=== PATIENT | female | born 1935 | race Hispanic/Latino ===

== ENCOUNTER 2022-07-16 11:03 | Emergency (ER) | payer OTHER, MEDICARE ==
--- OUTSIDE RECORDS SUMMARY | 2022-07-16 11:07 | XMS REPORT | Continuity of Care Document ---
:1935 Author Organization [facility] t Address [address] [place] [address] Care Team Providers Name Role Phone ENOCH ENID REDD Primary Care Physician Unavailable Edelmira VIRAMONTES, Jonatan Catalan Attending Clinician Unavailable OMAR OBREGON Attending Clinician Unavailable Anirudh Brunson DO Attending Clinician Keith Lao DO Attending Clinician Omar Obregon MD Attending Clinician Babak FORRESTER, Monica PenalozaHYasmani Attending Clinician ADI MCCLOUD Attending Clinician Unavailable Adi Mccloud MD Attending Clinician Anastacia Etienne MD Attending Clinician KEITH LAO Admitting Clinician Unavailable Keith Lao DO Admitting Clinician ANASTACIA ETIENNE Admitting Clinician Unavailable Anastacia Etienne MD Admitting Clinician Payers Payer Name Policy Type Policy Number Effective Date Expiration Date S ource Problems Condition Condition Condition Status Onset Resolution Last Treating Co mments Source Name Details Category Date Date Treatment Clinician Date 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 00:00: [place] and and 00 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 KATIE (acute KATIE (acute Disease Active U nivers kidney kidney 2-08 ity of injury) injury) 00:00: [place] 00 Medical Branch Altered Altered Disease Active Univers mental mental 2-06 ity of status, status, 00:00: [place] unspecifie unspecifie 00 Me dical d altered d altered Bran ch mental mental status status type type Acute on Acute on Disease Active 2021-05 Unive rs chronic chronic 1-24 ity of systolic systolic 00:00: [place] and and 00 Medical diastolic diastolic Bran ch heart heart failure, failure, NYHA class NYHA class 3 3 Pulmonary Pulmonary Disease Active 2021-05 Uni vers hypertensi hypertensi 1-24 it y of on on 00:00: [place] 00 Medical Branch Elevated Elevated Disease Active 2021-05 Unive rs brain brain 1-23 ity of natriureti natriureti 00:00[place] c peptide c peptide 00 Medi inocencio (BNP) (BNP) Branch level level Essential Essential Disease Active 2021-05 Uni vers hypertensi hypertensi 1-23 it y of on on 00:00: [place] 00 Medical Branch Borderline Borderline Disease Active 2021-05 U mary abnormal abnormal 1-23 ity of TFTs TFTs 00:00: [place] 00 Medical Branch Atrial Atrial Disease Active 2021-05 Univers fibrillati fibrillati 1-22 it y of on with on with 00:00: [place] RVR RVR 00 Medical Branch Post-op Post-op Disease Active 2015-05 Univers pain pain 2-21 ity of 00:00: [place] 00 Medical Branch Left knee Left knee Disease Active Uni vers pain pain 2-15 ity of 00:00: [place] 00 Medical Branch Allergies, Adverse Reactions, Alerts Allergy Allergy Status Severity Reaction(s) Onset Inactive Treating Comm ents Source Name Type Date Date Clinician Strawber Propensi Active Shortness of Univers ry ty to Breath 7-09 ity of adverse 00:00: [place] reaction 00 Medical s Branch STRAWBER DRUG Active SOB 2016-0 Univers RY INGREDI 11-30 ity of 00:00: [place] 00 Medical Branch Social History Social Habit Start Date Stop Date Quantity Comments Source History SDOH Social Unive rsity of Connections Get [place] Med ical Together Branch History SDOH Social Unive rsity of Connections [facility] [place] [facility] History SDOH Social Unive rsity of Connections [place] [facility] Membership Branch History SDOH Social Unive rsity of Connections [place] [facility] Meetings Branch History of tobacco Passive smoker Un iversity of use [place] [facility] History SDOH 2022-07-02 2022-07-02 1 University o f Alcohol Frequency 00:00:00 00:00:00 [place] M edical Branch History SDOH 2022-07-02 2022-07-02 0 University o f Alcohol Std Drinks 00:00:00 00:00:00 [place] [facility] History SDOH 2022-07-02 2022-07-02 1 University o f Alcohol Binge 00:00:00 00:00:00 [place] Medic al Branch History SDOH Social 2022-07-02 2022-07-02 5 Unive rsity of Connections Phone 00:00:00 00:00:00 [place] M edical Branch History SDOH Social 2022-07-02 2022-07-02 4 Unive rsity of Connections Living 00:00:00 00:00:00 [place] [facility] History SDOH 2022-07-02 2022-07-02 0 University o f Physical Activity 00:00:00 00:00:00 [place] M edical DPW Branch History SDOH 2022-07-02 2022-07-02 0 University o f Physical Activity 00:00:00 00:00:00 [place] M edical MPS Branch History SDOH 2022-07-02 2022-07-02 5 University o f Financial 00:00:00 00:00:00 [place] [facility] History SDOH Food 2022-07-02 2022-07-02 1 Univers ity of Worry 00:00:00 00:00:00 [place] [facility] History SDOH Food 2022-07-02 2022-07-02 1 Univers ity of Scarcity 00:00:00 00:00:00 [place] [facility] History SDOH 2022-07-02 2022-07-02 2 University o f Transport Med 00:00:00 00:00:00 [place] Medic al Branch History SDOH 2022-07-02 2022-07-02 2 University o f Transport Non-Med 00:00:00 00:00:00 [place] M edical Branch Exposure to 2022-06-20 2022-06-30 Not sure [facility] SARS-CoV-2 (event) 00:00:00 15:34:00 [facility] Alcohol intake 2022-06-30 2022-06-30 0 /d [facility] 00:00:00 00:00:00 [facility] Tobacco use and 2022-04-15 2022-04-15 Smokeless Universit y of exposure 00:00:00 00:00:00 tobacco non-user [facility] Sex Assigned At [birth year] Universit y of 00:00:00 00:00:00 [facility] Smoking Status Start Date Stop Date Source Never smoked tobacco [facility] Medications Ordered Filled Start Stop Current Ordering Indication Dosage Frequency Signature Comments Components Source Medication Medication Date Date Medication? Clinician (SIG) Name Name haloperidoL Yes 2mg 2 mg, Unive rs (HALDOL) 2-10 Oral, BID, ity o f tablet 2 mg 15:00: First dose [place] 00 on Thu07/04/22 at [place] 0900, Until Discontinu ed, Routine B12/FA/D3/C Yes Take by Uni vers ALC CIT/ZN 2-10 mouth. ity of AA CHELT 14:17: [place] (VIT 11 Medical [id number] Branch D3-CALC CIT-ZN ORAL) magnesium Yes 400mg Take 400 Uni vers oxide 2-10 mg by ity of (MAG-OX 14:17: mouth [place] 400) 400 mg 11 daily. Medica l tablet Branch GLUCOSAMINE Yes 1{tbl} Take 1 Un andry HCL/CHONDR 2-10 tablet by ity of NORIEGA A NA 14:17: mouth 3 [place] (OSTEO 11 (three) Medical BI-FLEX times Branch ORAL) daily. pantoprazol Yes 40mg Take 40 mg Univers e 2-10 by mouth ity of (PROTONIX) 14:17: daily. [place] 40 mg EC 11 Medical tablet Branch B12/FA/D3/C Yes Take by Uni vers ALC CIT/ZN 2-10 mouth. ity of AA CHELT 14:17: [place] (VIT 11 Medical [id number] Branch D3-CALC CIT-ZN ORAL) magnesium Yes 400mg Take 400 Uni vers oxide 2-10 mg by ity of (MAG-OX 14:17: mouth [place] 400) 400 mg 11 daily. Medica l tablet Branch GLUCOSAMINE Yes 1{tbl} Take 1 Un andry HCL/CHONDR 2-10 tablet by ity of NORIEGA A NA 14:17: mouth 3 [place] (OSTEO 11 (three) Medical BI-FLEX times Branch ORAL) daily. pantoprazol Yes 40mg Take 40 mg Univers e 2-10 by mouth ity of (PROTONIX) 14:17: daily. [place] 40 mg EC 11 Medical tablet Branch metoprolol Yes 100mg 100 mg, Uni vers tartrate 2-10 Oral, BID, ity o f (LOPRESSOR) 14:00: First dose [place] tablet 100 00 (after Medical mg last Branch modificati on) on Thu07/04/22 at 0800, Until Discontinu ed, Routine haloperidol Yes 2.5mg 2.5 mg, Un andry lactate 2-10 Intramuscu ity of (HALDOL) 13:47: lar, PRN, [place] injection 55 2 doses, Medica l 2.5 mg Starting Branch on Thu07/04/22 at 0747, Until Discontinu ed, Routine, Psychosis LORazepam 2022- No .5mg 0.5 mg, Univ ers (ATIVAN) 2-10 02-10 Oral, ity of tablet 0.5 04:45: 03:55 ONCE, 1 [place] mg 00 :00 dose, On Medical [facility] 07/03/22 Branch at 2245, Routine metoprolol 2022- Yes [id number] 100mg Take 1 Univers tartrate 2-10 -13 tablet by ity o f 100 mg 00:00: 04:59 mouth in [place] tablet 00 :00 the Medical morning Branch and 1 tablet in the evening. Do all this for 30 days. metoprolol 2022- Yes [id number] 100mg Take 1 Univers tartrate 2-10 -13 tablet by ity o f 100 mg 00:00: 04:59 mouth in [place] tablet 00 :00 the Medical morning Branch and 1 tablet in the evening. Do all this for 30 days. metoprolol 2022- No 50mg 50 mg, Univ ers tartrate 07-03 Oral, Q8H, ity of (LOPRESSOR) 20:00: 13:31 First dose [place] tablet 50 00 :42 (after Medical mg last Branch modificati on) on [facility] 07/03/22 at 1400, Until Discontinu ed, Routine metoprolol 2022- No 25mg 25 mg, Univ ers tartrate 07-02 Oral, Q8H, ity of (LOPRESSOR) 13:45: 13:38 First dose [place] tablet 25 00 :06 on [facility] Medical mg 07/02/22 at Branch 0745, Until Discontinu ed, Routine docusate Yes 100mg 100 mg, Unive rs (COLACE) 2- Oral, ity of capsule 100 15:00: DAILY, [place] mg 00 First dose Medical on [place] 07/01/22 at 0900, Until Discontinu ed, Routine magnesium Yes 400mg 400 mg, Univ ers oxide 07-01 Oral, ity of (MAG-OX 15:00: DAILY, [place] 400) tablet 00 First dose Me dical 400 mg on [facility] 07/01/22 at 0900, Until Discontinu ed, Routine KCL Yes 40meq 40 mEq, Univers (KLOR-CON - Oral, ity of M20) tablet 15:00: DAILY, [place] 40 mEq 00 First dose Medical on [facility] 07/01/22 at 0900, Until Discontinu ed, Routine NaCl 0.9% 2022- No 500mL at 999 Univ ers (NS) bolus 07-01- mL/hr, 500 it y of infusion 14:30: 13:45 mL, IV [place] 500 mL 00 :07 Infusion, Medical ONCE, 1 Branch dose, On [facility] 07/01/22 at 0830, STAT magnesium 2022-2022- No 2g 2 g, IV Univ ers sulfate in 07-01- Piggyback, it y of water 2 14:15: 18:34 Administer [place] gram/50 mL 00 :00 over 60 Medica l (4 %) Minutes, Branch infusion 2 ONCE, 1 g dose, On Thu07/01/22 at 0815, Routine potassium 2022-0 2022- No 10meq 10 mEq, IV Univers chloride in 07-01 Piggyback, i ty of water 10 14:00: 16:25 Q1H, 2 [place] mEq/100 mL 00 :00 doses, Medical RTU 10 mEq First dose Bra nch on Thu07/01/22 at 0800, Last dose on Thu07/01/22 at 0900, Administer over 60 Minutes, 100 mL heparin Yes 5000U 5,000 Univers (porcine) 07 Units, ity of injection 04:00: Subcut[place]o [place] 5,000 Units 00 us, Q8H, Medi inocencio First dose Branch on Thu06/30/22 at 2200, Until Discontinu ed, Routine ondansetron 0 Yes 4mg 4 mg, Slow Univers (ZOFRAN 06-30 IV Push, ity of (PF)) 23:38: Q6HPRN, [place] injection 4 17 Starting Medi inocencio mg on Thu06/30/22 at 1738, Until Discontinu ed, Routine, Nausea and Vomiting (N/V) acetaminoph Yes 650mg 650 mg, Un andry en 06 Oral, ity of (TYLENOL) 23:38: Q6HPRN, [place] tablet 650 17 Starting Medic al mg on Thu06/30/22 at 1738, Until Discontinu ed, Routine, Pain (scale 1-3) NaCl 0.9% 2022- No 1000mL at 999 Uni vers (NS) bolus 06-30 02-06 mL/hr, ity of infusion 22:45: 21:39 1,000 mL, [place] 1,000 mL 00 :00 IV Medical Piggyback, Branch ONCE, 1 dose, On Thu06/30/22 at 1645, STAT ondansetron 2022-0 2022- No 4mg 4 mg, Slow Univers (ZOFRAN 06-30 02-06 IV Push, ity of (PF)) 20:00: 20:43 ONCE, 1 [place] injection 4 00 :00 dose, On Medi inocencio mg 06/30/22 Branch at 1400, Routine magnesium 2021-05- Yes 400mg 400 mg, Uni vers oxide 1-26 12-03 Oral, BID, ity of (MAG-OX 02:00: 01:59 14 doses, [place] 400) tablet 00 :00 First dose Me dical 400 mg on Fri Branch 04/18/22 at 2000, Last dose on 04/25/22 at 0800, Routine B12/FA/D3/C 2021-05 Yes Take by Uni vers ALC CIT/ZN 1-25 mouth. ity of AA CHELT 16:34: [place] (VIT 07 Medical [id number] Branch D3-CALC CIT-ZN ORAL) magnesium 2021-05 Yes 400mg Take 400 Uni vers oxide 1-25 mg by ity of (MAG-OX 16:34: mouth [place] 400) 400 mg 07 daily. Medica l tablet Branch GLUCOSAMINE 2021-05 Yes 1{tbl} Take 1 Un andry HCL/CHONDR 1-25 tablet by ity of NORIEGA A NA 16:34: mouth 3 [place] (OSTEO 07 (three) Medical BI-FLEX times Branch ORAL) daily. pantoprazol 2021-05 Yes 40mg Take 40 mg Univers e 1-25 by mouth ity of (PROTONIX) 16:34: daily. [place] 40 mg EC 07 Medical tablet Branch B12/FA/D3/C 2021-05 Yes Take by Uni vers ALC CIT/ZN 1-25 mouth. ity of AA CHELT 16:34: [place] (VIT 07 Medical [id number] Branch D3-CALC CIT-ZN ORAL) magnesium 2021-05 Yes 400mg Take 400 Uni vers oxide 1-25 mg by ity of (MAG-OX 16:34: mouth [place] 400) 400 mg 07 daily. Medica l tablet Branch GLUCOSAMINE 2021-05 Yes 1{tbl} Take 1 Un andry HCL/CHONDR 1-25 tablet by ity of NORIEGA A NA 16:34: mouth 3 [place] (OSTEO 07 (three) Medical BI-FLEX times Branch ORAL) daily. pantoprazol 2021-05 Yes 40mg Take 40 mg Univers e 1-25 by mouth ity of (PROTONIX) 16:34: daily. [place] 40 mg EC 07 Medical tablet Branch B12/FA/D3/C 2021-05 Yes Take by Uni vers ALC CIT/ZN 1-25 mouth. ity of AA CHELT 16:34: [place] (VIT 07 Medical [id number] Branch D3-CALC CIT-ZN ORAL) magnesium 2021-05 Yes 400mg Take 400 Uni vers oxide 1-25 mg by ity of (MAG-OX 16:34: mouth [place] 400) 400 mg 07 daily. Medica l tablet Branch GLUCOSAMINE 2021-05 Yes 1{tbl} Take 1 Un andry HCL/CHONDR -25 tablet by ity of NORIEGA A NA 16:34: mouth 3 [place] (OSTEO 07 (three) Medical BI-FLEX times Branch ORAL) daily. pantoprazol 2021-05 Yes 40mg Take 40 mg Univers e 06-18 by mouth ity of (PROTONIX) 16:34: daily. [place] 40 mg EC 07 Medical tablet Branch KCL 2021-05- No 40meq 40 mEq, Univers (KLOR-CON 06-18 Oral, ity of M20) tablet 15:15: 17:39 ONCE, 1 [place] 40 mEq 00 :00 dose, On Medical Fri Branch 04/18/22 at 0915, Routine MAGNESIUM 2021-05- No Take by Univ ers OXIDE/MAG 06-18- mouth. ity of AA CHELATE 15:10: 00:00 [place] (MAGNESIUM, 22 :00 Medical OXIDE/AA Branch CHELATE, ORAL) tiZANidine 2021-05- No 2mg Take 2 mg U nivers (ZANAFLEX) 06-18 by mouth 3 it y of 2 mg 15:10: 00:00 (three) [place] capsule 22 :00 times Medical daily. Branch calcium 2021-05- No 500mg 500 mg, Unive rs carbonate 06-18 Oral, ity of (OSCAL-500) 05:00: 05:53 ONCE, 1 [place] tablet 500 00 :00 dose, On Medic al mg [place] Branch 04/17/22 at 2300, Routine acetaminoph 2021-05 Yes [id number] 1000mg Take 2 Univers en 500 mg 06-18 9109 tablets by ity of tablet 00:00: mouth [place] 00 every 6 Medical (six) Branch hours as needed for Pain. acetaminoph 2021-05 Yes [id number] 1000mg Take 2 Univers en 500 mg -25 9109 tablets by ity of tablet 00:00: mouth [place] 00 every 6 Medical (six) Branch hours as needed for Pain. acetaminoph 2021-05 Yes [id number] 1000mg Take 2 Univers en 500 mg -25 9109 tablets by ity of tablet 00:00: mouth [place] 00 every 6 Medical (six) Branch hours as needed for Pain. acetaminoph 2021-05 Yes [id number] 1000mg Take 2 Univers en 500 mg -25 9109 tablets by ity of tablet 00:00: mouth [place] 00 every 6 Medical (six) Branch hours as needed for Pain. acetaminoph 2021-05 Yes [id number] 1000mg Take 2 Univers en 500 mg - 9109 tablets by ity of tablet 00:00: mouth [place] 00 every 6 Medical (six) Branch hours as needed for Pain. apixaban 2021-05- Yes 5144 2.5mg Take 0.5 Uni vers (ELIQUIS) 5 06-18 tablets by i ty of mg tablet 00:00: 05:59 mouth in [place] 00 :00 the Medical morning Branch and 0.5 tablets in the evening. Do all this for 30 days. Indication s: prevention of thromboemb olism in paroxysmal atrial fibrillati on lisinopriL 2021-05- Yes [id number] 2.5mg Take 1 Univers 2.5 mg 06-18 9109 tablet by ity of tablet 00:00: 05:59 mouth in [place] 00 :00 the Medical morning Branch for 30 days. metoprolol 2021-05- Yes [id number] 50mg Take 1 Univers tartrate 50 06-18 9109 tablet by it y of mg tablet 00:00: 05:59 mouth in [place] 00 :00 the Medical morning Branch and 1 tablet in the evening. Do all this for 30 days. furosemide 2021-05- Yes [id number] 20mg Take 1 Univers 20 mg 06-18 9109 tablet by ity of tablet 00:00: 05:59 mouth in [place] 00 :00 the Medical morning Branch for 30 days. apixaban 2021-05- Yes 5144 2.5mg Take 0.5 Uni vers (ELIQUIS) 5 06-18 tablets by i ty of mg tablet 00:00: 05:59 mouth in [place] 00 :00 the Medical morning Branch and 0.5 tablets in the evening. Do all this for 30 days. Indication s: prevention of thromboemb olism in paroxysmal atrial fibrillati on lisinopriL 2021-05- Yes [id number] 2.5mg Take 1 Univers 2.5 mg 06-18 9109 tablet by ity of tablet 00:00: 05:59 mouth in [place] 00 :00 the [facility] morning Branch for 30 days. metoprolol 2021-05- Yes [id number] 50mg Take 1 Univers tartrate 50 06-18 9109 tablet by it y of mg tablet 00:00: 05:59 mouth in [place] 00 :00 the Medical morning Branch and 1 tablet in the evening. Do all this for 30 days. furosemide 2021-05- Yes [id number] 20mg Take 1 Univers 20 mg 06-18 9109 tablet by ity of tablet 00:00: 05:59 mouth in [place] 00 :00 the [facility] morning Branch for 30 days. apixaban 2021-05- Yes 5144 2.5mg Take 0.5 Uni vers (ELIQUIS) 5 06-18 tablets by i ty of mg tablet 00:00: 05:59 mouth in [place] 00 :00 the [facility] morning Branch and 0.5 tablets in the evening. Do all this for 30 days. Indication s: prevention of thromboemb olism in paroxysmal atrial fibrillati on lisinopriL 2021-05- Yes [id number] 2.5mg Take 1 Univers 2.5 mg 06-18 9109 tablet by ity of tablet 00:00: 05:59 mouth in [place] 00 :00 the [facility] morning Branch for 30 days. metoprolol 2021-05- Yes [id number] 50mg Take 1 Univers tartrate 50 06-18 9109 tablet by it y of mg tablet 00:00: 05:59 mouth in [place] 00 :00 the Medical morning Branch and 1 tablet in the evening. Do all this for 30 days. furosemide 2021-05- Yes [id number] 20mg Take 1 Univers 20 mg 06-18 9109 tablet by ity of tablet 00:00: 05:59 mouth in [place] 00 :00 the Medical morning Branch for 30 days. furosemide 2021-05 Yes 20mg 20 mg, Unive rs (LASIX) 06-17 Slow IV ity of injection 02:00: Push, [place] 20 mg 00 Q12H, Medical First dose Branch (after last modificati on) on Thu04/16/22 at 2000, Until Discontinu ed, Routine traMADoL 2021-05 Yes 50mg 50 mg, Univers (ULTRAM) 06-16 Oral, ity of tablet 50 23:41: Q6HPRN, [place] mg 37 Starting Medical on Thu Branch 04/16/22 at 1741, Until Discontinu ed, Routine, Pain (scale 4-6) acetaminoph 2021-05 Yes 1000mg 1,000 mg, Univers en 06-16 Oral, ity of (TYLENOL) 23:41: Q6HPRN, [place] tablet 24 Starting Medical 1,000 mg on Thu04/16/22 at 1741, Until Discontinu ed, Routine, Pain (scale 1-3) pantoprazol 2021-05 Yes 40mg 40 mg, Univ ers e 06-16 Oral, ity of (PROTONIX) 15:00: DAILY, [place] EC tablet 00 First dose Medi inocencio 40 mg on Thu04/16/22 at 0900, Until Discontinu ed, Routine docusate 2021-05 Yes 100mg 100 mg, Unive rs (COLACE) 06-16 Oral, ity of capsule 100 15:00: DAILY, [place] mg 00 First dose Medical on Thu04/16/22 at 0900, Until Discontinu ed, Routine furosemide 2021-05 No 20mg 20 mg, Univ ers (LASIX) 06-16 Slow IV ity of injection 15:00: 16:43 Push, [place] 20 mg 00 :38 DAILY, Medical First dose Branch on Thu04/16/22 at 0900, Until Discontinu ed, Routine KCL 2021-05 No 40meq 40 mEq, Univers (KLOR-CON 06-16 Oral, ity of M20) tablet 14:15: 14:12 ONCE, 1 [place] 40 mEq 00 :00 dose, On Medical Thu04/16/22 at 0815, Routine enoxaparin 2021-05 Yes 1mg/kg 50 mg Univ ers (LOVENOX) 23 (rounded ity of injection 14:00: from 46.5 [place] 50 mg 00 mg = 1 Medical mg/kg Branch ?46.5 kg), [facility] Q12[facility], First dose on Thu04/16/22 at 0800, Until Discontinu ed, Routine thyroid 2021-05 Yes 90mg 90 mg, Univers (ARMOUR 06-16 Oral, ity of THYROID) 12:00: QAM-0600, [place] tablet 90 00 First dose Medi inocencio mg on Thu04/16/22 at 0600, Until Discontinu ed metoprolol 2021-05 Yes 50mg 50 mg, Unive rs tartrate 06-16 Oral, BID, ity o f (LOPRESSOR) 03:30: First dose [place] tablet 50 00 on Thu Medical mg 04/15/22 Branch at 2130, Until Discontinu ed, Routine gabapentin 2021-05 Yes 100mg 100 mg, Uni vers (NEURONTIN) 06-16 Oral, TID, it y of capsule 100 03:30: First dose [place] mg 00 on Thu Medical 04/15/22 Branch at 2130, Until Discontinu ed, Routine diltiazem 2021-05 Yes 10mg 10 mg, Univer s (CARDIZEM 06-16 Slow IV ity of IV) 03:17: Push, [place] injection 03 Q6HPRN, Medical 10 mg Starting Branch on Thu04/15/22 at 2117, Until Discontinu ed, Routine, For HR > 120 or SBP > 160. Hold for SBP < 110, DBP < 60, HR < 60
Facu lty member approving Restricted medication : ANASTACIA ETIENNE cyclobenzap 2021-05 Yes 5mg 5 mg, Unive rs rine 23 Oral, ity of (FLEXERIL) 03:16: TIDPRN, [place] tablet 5 mg 13 Starting Medi inocencio on Thu Branch 04/15/22 at 2116, Until Discontinu ed, Routine, Muscle Spasms cyclobenzap 2015- Yes 5mg Take 1 Univ ers rine 7-09 tablet by ity of (FLEXERIL) 00:00: mouth 3 [place] 5 mg tablet 00 (three) Medic al times Branch daily. docusate Yes 100mg Take 1 Univer s (COLACE) 7-09 capsule by ity o f 100 mg 00:00: mouth [place] capsule 00 daily. Medical Branch cyclobenzap Yes 5mg Take 1 Univ ers rine 7-09 tablet by ity of (FLEXERIL) 00:00: mouth 3 [place] 5 mg tablet 00 (three) Medic al times Branch daily. docusate Yes 100mg Take 1 Univer s (COLACE) 7-09 capsule by ity o f 100 mg 00:00: mouth [place] capsule 00 daily. Medical Branch docusate Yes 100mg Take 1 Univer s (COLACE) 7-09 capsule by ity o f 100 mg 00:00: mouth [place] capsule 00 daily. Medical Branch docusate Yes 100mg Take 1 Univer s (COLACE) 7-09 capsule by ity o f 100 mg 00:00: mouth [place] capsule 00 daily. Medical Branch cyclobenzap Yes 5mg Take 1 Univ ers rine 7-09 tablet by ity of (FLEXERIL) 00:00: mouth 3 [place] 5 mg tablet 00 (three) Medic al times Branch daily. docusate Yes 100mg Take 1 Univer s (COLACE) 7-09 capsule by ity o f 100 mg 00:00: mouth [place] capsule 00 daily. Medical Branch cyclobenzap 2022- No 5mg Take 1 Uni vers rine 7-09 02-10 tablet by ity of (FLEXERIL) 00:00: 00:00 mouth 3 [place] 5 mg tablet 00 :00 (three) Medic al times Branch daily. docusate 2021- No 100mg Take 1 Unive rs (COLACE) 7-09 11-25 capsule by ity of 100 mg 00:00: 00:00 mouth 2 [place] capsule 00 :00 (two) Medical times Branch daily. raloxifene 2021- No 60mg Take 60 mg Univers (EVISTA) 60 1-20 -25 by mouth ity of mg tablet 00:00: 00:00 daily. [place] 00 :00 Medical Branch gabapentin Yes 100mg Take 100 Un andry (NEURONTIN) 1-12 mg by ity of 100 mg 00:00: mouth 3 [place] capsule 00 (three) Medical times Branch daily. gabapentin Yes 100mg Take 100 Un andry (NEURONTIN) 1-12 mg by ity of 100 mg 00:00: mouth 3 [place] capsule 00 (three) Medical times Branch daily. gabapentin Yes 100mg Take 100 Un andry (NEURONTIN) 1-12 mg by ity of 100 mg 00:00: mouth 3 [place] capsule 00 (three) Medical times Branch daily. gabapentin 2022- No 100mg Take 100 U nivers (NEURONTIN) 1-12 02-10 mg by ity of 100 mg 00:00: 00:00 mouth 3 [place] capsule 00 :00 (three) Medical times Branch daily. valsartan-h 2021- No 1{tbl} Take 1 U nivers ydrochlorot 06-01 11-25 tablet by it y of hiazide 00:00: 00:00 mouth [place] (DIOVAN-HCT 00 :00 daily. Medica l ) 160-12.5 Branch mg per tablet [facility] 2014-05 Yes 90mg Take 90 mg Unive rs THYROID 90 2-22 by mouth ity o f mg tablet 00:00: daily. [place] [facility] 2014-05 Yes 90mg Take 90 mg Unive rs THYROID 90 2-22 by mouth ity o f mg tablet 00:00: daily. [place] [facility] 2014-05 Yes 90mg Take 90 mg Unive rs THYROID 90 2-22 by mouth ity o f mg tablet 00:00: daily. [place] [facility] 2014-05 Yes 90mg Take 90 mg Unive rs THYROID 90 2-22 by mouth ity o f mg tablet 00:00: daily. [place] [facility] 2014-05 Yes 90mg Take 90 mg Unive rs THYROID 90 2-22 by mouth ity o f mg tablet 00:00: daily. [place] [facility] famotidine 2014-05 No Univer s (PEPCID) 40 2-22 11-25 ity of mg tablet 00:00: 00:00 [place] 00 : [facility] Vital Signs Vital Name Observation Time Observation Value Comments Source Heart rate 2022-07-04 14:55:00 104 /min [facility] Body temperature 2022-07-04 14:55:00 36.11 Deepa Univ ersity of [facility] Respiratory rate 2022-07-04 14:55:00 18 /min Univ ersity of [facility] Branch Oxygen saturation in 2022-07-04 14:55:00 85 /min University of Arterial blood by [facility] Pulse oximetry Branch Systolic blood 2022-07-04 14:54:00 127 mm[Hg] Univer sity of pressure [facility] Diastolic blood 2022-07-04 14:54:00 90 mm[Hg] Unive rsity of pressure [facility] Body height 2022-07-01 02:59:00 147.3 cm Universi ty of [facility] Body weight 2022-07-01 02:59:00 46.63 kg Universi ty of [facility] BMI 2022-07-01 02:59:00 21.49 kg/m2 [facility]i ty [facility] Body temperature 2022-04-18 21:00:00 36.39 Deepa Univ ersity of [facility] Systolic blood 2022-04-18 18:00:00 132 mm[Hg] Univer sity of pressure [facility] Diastolic blood 2022-04-18 18:00:00 107 mm[Hg] Unive rsity of pressure [facility] Heart rate 2022-04-18 18:00:00 108 /min [facility] Respiratory rate 2022-04-18 18:00:00 18 /min Univ ersity of [facility] Oxygen saturation in 2022-04-18 18:00:00 98 /min University of Arterial blood by [facility] Pulse oximetry Branch Body weight 2022-04-18 10:00:00 46.993 kg Universi ty of [facility] BMI 2022-04-18 10:00:00 18.94 kg/m2 Universi ty [facility] Body height 2022-04-16 04:08:00 157.5 cm [facility] Procedures Procedure Date / Time Performing Clinician Source Performed COVID-19 (ID NOW RAPID 2022-07-04 16:05:00 Anna Aggarwal [facility] Branch MAGNESIUM 2022-07-02 11:20:00 Dae Godfrey [facility] BASIC METABOLIC PANEL 2022-07-02 11:20:00 [facility] K, CL, CO2, Medical Branch GLUCOSE, BUN, CREATININE, CA) CBC WITH DIFF 2022-07-02 11:20:00 [facility] 2022-07-01 11:50:00 Ame [facility] THYROID STIMULATING 2022-07-01 11:50:00 [facility] BASIC METABOLIC PANEL 2022-07-01 11:50:00 Ame [facility] (NA, K, CL, CO2, Medical Branch GLUCOSE, BUN, CREATININE, CA) URINALYSIS 2022-06-30 20:53:00 Singer [facility] LACTIC ACID WHOLE BLOOD 2022-06-30 20:42:00 Singer [facility] CT CERVICAL SPINE WO 2022-06-30 20:32:21 Singer [facility] CONTRAST [facility] CT HEAD WO CONTRAST 2022-06-30 20:32:21 Singer [facility] XR PELVIS <3 VW 2022-06-30 20:22:11 Singer [facility] MAGNESIUM 2022-06-30 20:05:00 Ame [facility] COMP. METABOLIC PANEL 2022-06-30 20:05:00 Singer [facility] ([id number]) Medical Branch ETHANOL 2022-06-30 20:05:00 Singer [facility] CBC WITH DIFF 2022-06-30 20:05:00 Singer [facility] EKG-12 LEAD 2022-06-30 20:04:20 Keith Lao [facility] COVID-19 (ID NOW RAPID 2022-04-18 18:58:[address] [facility] TESTING) Medical Branch MAGNESIUM 2022-04-18 10:28:00 Keith Lao [facility] BASIC METABOLIC PANEL 2022-04-18 10:28:00 [facility] ([facility], K, CL, CO2, Medical Branch GLUCOSE, BUN, CREATININE, CA) CBC WITH DIFF 2022-04-18 10:28:00 Eddie [facility] TROPONIN I 2022-04-17 16:57:00 Monica Hilliard [facility] BASIC METABOLIC PANEL 2022-04-17 16:57:00 [facility] (NA, K, CL, CO2, Medical Branch GLUCOSE, BUN, CREATININE, CA) N-TERMINAL PRO-BNP 2022-04-17 16:57:00 Monica Hilliard [facility] US GALL BLADDER 2022-04-16 22:13[facility] 2022-04-16 16:40:00 Monica Hilliard [facility] HB ECG ROUTINE & RHYTHM 2022-04-16 15:54:40 Monica Hilliard [facility] TRANSTHORACIC ECHO (TTE) 2022-04-16 13:44[facility] 2022-04-16 10:30:00 Monica Hilliard [facility] THYROID STIMULATING 2022-04-16 10:30:00 Kiley [facility] HORMONE [facility] BASIC METABOLIC PANEL 2022-04-16 10:30:00 [facility] (NA, K, CL, CO2, Medical Branch GLUCOSE, BUN, CREATININE, CA) LIPID PANEL 2022-04-16 10:30:00 Monica Hilliard [facility] ([id number])(TOTAL Medical Branch CHOLESTEROL, TRIGLYCERIDES, HDL) CBC WITH DIFF 2022-04-16 10:30:00 [facility] GLYCOSYLATED HEMOGLOBIN 2022-04-16 10:30:00 Monica Hilliard [facility] (A1C) [facility] FREE T3 2022-04-16 10:30:00 Monica Hilliard [facility] N-TERMINAL PRO-BNP 2022-04-16 06:37:00 Anastacia Etienne [facility] Encounters Start End Encounter Admission Attending Care Care Encounter Source Date/Time Date/Time Type Type Clinicians Facility Department ID 2022-07-07 2022-07-07 Transition CYN Hickey [id number] [id number] Univers 00:00:00 00:00:00 of Care Jonatan MIRELES 350.1.13.10 ity [place] [id number] [facility] 403 Branch 2022-06-30 2022-07-04 [facility] [id number] Univers 13:52:00 13:30:00 OMAR [facility] 2022-06-30 2022-07-04 [facility] Anirudh Brunson [facility] 1.2.840.1 [id number] Univers 13:52:00 13:30:00 Encounter Keith Lao 350.1.13.10 ity of [place] 4.2.7.2.686 [facility] [id number] [facility] 081 Branch 2022-04-23 2022-04-23 [facility] [id number] Univers 00:00:00 00:00:00 Monica PAREDES 350.1.13.10 [place] [id number] [place] [id number] [facility] 2022-04-21 2022-04-21 Transition CYN Hickey 1.2.840.114 [id number] Univers 00:00:00 00:00:00 of Care Jonatan MIRELES 350.1.13.10 [place] [id number] [facility] 403 Branch 2022-04-15 2022-04-18 [facility] [id number] Univers 20:08:00 16:15:00 [facility] 2022-04-15 2022-04-18 [facility] Adi Mccloud [facility] 1.2.840.11 [id number] Univers 20:08:00 16:15:00 Encounter Anastacia Etienne 350.1.13.10 berkley liz CARLS[place]UR[place] 4.2.7.2.686 [facility] [id number] [facility] 080 Branch Results Test Description Test Time Test Comments Results Result Comments Source MAGNESIUM 2022-07-02 12:38:25 Test Item Value Reference Range Interpretation Comme nts MAGNESIUM (test code = 8118741255) 2.1 mg/dL 1.7-2.4 Lab Interpretation (test code = 42680-9) Normal [facility] (NA, K, CL, CO2, GLUCOSE, BUN, CREATININE, CA)2022-07-02 12:38:05 Test Item Value Reference Range Interpretation Comments NA (test code = 138 mmol/L 135-145 9640413463) K (test code = 3.8 mmol/L 3.5-5.0 8187799321) CL (test code = 94 mmol/L 98-108 L 1259853975) CO2 TOTAL (test code = 37 mmol/L 23-31 H 3620767812) AGAP (test code = 7 2-16 9850414319) BUN (test code = 73 mg/dL 7-23 H 6257204846) GLUCOSE (test code = 114 mg/dL 70-110 H 7898669115) CREATININE (test code = 1.26 mg/dL 0.50-1.04 H 7323650195) CALCIUM (test code = 9.1 mg/dL 8.6-10.6 2759374735) eGFR (test code = 40.2 mL/min/1.73m2 9072318592) HEATHER (test code = HEATHER) Association of Glomerular Filtration Rate (GFR) and Staging of Kidney Disease* + --+ --+ ------+| GFR (mL/min/1.73 m2) ?| With Kidney Damage ?| ?Without Kidney Damage+ --------+ --------+ +| ?>90 ?| ?Stage one ?| ? Normal ?+ ---+ ---+ -------+| ?60-89 ?| ?Stage two ?| ? Decreased GFR ? + --+ --+ ------+| ?30-59 ?| ?Stage three ?| ? Stage three ? + --+ --+ ------+| ?15-29 ?| ?Stage four ? | ? Stage four ?+ ---+ ---+ -------+| ?<15 (or dialysis) ? ?| ?Stage five ? | ? Stage five ?+ ---+ ---+ -------+ *Each stage assumes the associated GFR level has been in effect for at least three months. ?Stages 1 to 5, with or without kidney disease, indicate chronic kidney disease. Notes: Determination of stages one and two (with eGFR >59mL/min/1.73 m2) requires estimation of kidney damage for at least three months as defined by structural or functional abnormalities of the kidney, manifested by either:Pathological abnormalities or Markers of kidney damage (including abnormalities in the composition of the blood or urine or abnormalities in imaging tests). Lab Interpretation Abnormal (test code = 90289-7) [facility] WITH [id number] 12:21:23 Test Item Value Reference Range Interpretation Comments WBC (test code = 4.64 See_Comment [Automated 1290-2) message] The sy stem which generated this result transmitted reference range : 4.30 - 11.10 10*3/?L. The reference range was not used to interpret this result as normal/abnormal . RBC (test code = 4.29 See_Comment [Automated 309-8) message] The sy stem which generated this result transmitted reference range : 3.93 - 5.25 10*6/?L. The reference range was not used to interpret this result as normal/abnormal . HGB (test code = 12.8 g/dL 11.6-15.0 718-7) HCT (test code = 37.7 % 35.7-45.2 4544-3) MCV (test code = 87.9 fL 80.6-95.5 787-2) MCH (test code = 29.8 pg 25.9-32.8 785-6) MCHC (test code = 34.0 g/dL 31.6-35.1 786-4) RDW-SD (test code = 47.2 fL 39.0-49.9 75706-0) RDW-CV (test code = 14.6 % 12.0-15.5 788-0) PLT (test code = 164 See_Comment L [Automated 777-3) message] The sy stem which generated this result transmitted reference range : 166 - 358 10*3/ ?L. The reference r pamela was not used to interpret this result as normal/abnormal . MPV (test code = 10.8 fL 9.5-12.9 83453-2) NRBC/100 WBC (test 0.0 See_Comment [Automat ed code = 6375583537) message] The system which generated this result transmitted reference range : 0.0 - 10.0 /100 WBCs. The refer ence range was not u sed to interpret th is result as normal/abnormal . NRBC x10^3 (test code See_Comment [Auto mated = 1642929906) message] The s ystem which generated this result transmitted reference range : 10*3/?L. The reference range was not used to interpret this result as normal/abnormal . GRAN MAT (NEUT) % 67.0 % (test code = 770-8) IMM GRAN % (test code 0.40 % = 6934023860) LYMPH % (test code = 20.5 % 736-9) MONO % (test code = 9.5 % 5905-5) EOS % (test code = 2.2 % 713-8) BASO % (test code = 0.4 % 706-2) GRAN MAT x10^3(ANC) 3.11 10*3/uL 1.88-7.09 (test code = 5496760768) IMM GRAN x10^3 (test 0.00-0.06 code = 8191452202) LYMPH x10^3 (test code 0.95 10*3/uL 1.32-3.29 L = 731-0) MONO x10^3 (test code 0.44 10*3/uL 0.33-0.92 = 742-7) EOS x10^3 (test code = 0.10 10*3/uL 0.03-0.39 711-2) BASO x10^3 (test code 0.01-0.07 = 704-7) Lab Interpretation Abnormal (test code = 19453-8) [facility] Test Item Value Reference Range Interpretation Comments MAGNESIUM (test code = 1.7 mg/dL 1.7-2.4 Sligh t hemolysis 6265967501) Lab Interpretation (test Normal code = 66806-3) [facility] 20:57:48 ALCOHOL<10mg/dL06/30/2022 2:57 PM [facility]10 Ypmnatza00-667 Toxic>100 Depression of PUBLIC HEALTH ANALYST>400 Fatalities ReportedUnUT [facility] WITH [id number] 20:51:58 Test Item Value Reference Range Interpretation Comments WBC (test code = 5.57 See_Comment [Automated 7396-2) message] The sy stem which generated this result transmitted reference range : 4.30 - 11.10 10*3/?L. The reference range was not used to interpret this result as normal/abnormal . RBC (test code = 4.27 See_Comment [Automated 617-8) message] The sy stem which generated this result transmitted reference range : 3.93 - 5.25 10*6/?L. The reference range was not used to interpret this result as normal/abnormal . HGB (test code = 12.6 g/dL 11.6-15.0 718-7) HCT (test code = 37.4 % 35.7-45.2 4544-3) MCV (test code = 87.6 fL 80.6-95.5 787-2) MCH (test code = 29.5 pg 25.9-32.8 785-6) MCHC (test code = 33.7 g/dL 31.6-35.1 786-4) RDW-SD (test code = 46.2 fL 39.0-49.9 67201-5) RDW-CV (test code = 14.6 % 12.0-15.5 788-0) PLT (test code = 164 See_Comment L [Automated 787-3) message] The sy stem which generated this result transmitted reference range : 166 - 358 10*3/ ?L. The reference r pamela was not used to interpret this result as normal/abnormal . MPV (test code = 10.3 fL 9.5-12.9 94778-6) NRBC/100 WBC (test 0.0 See_Comment [Automat ed code = 5238364593) message] The system which generated this result transmitted reference range : 0.0 - 10.0 /100 WBCs. The refer ence range was not u sed to interpret th is result as normal/abnormal . NRBC x10^3 (test code See_Comment [Auto mated = 7488727244) message] The s ystem which generated this result transmitted reference range : 10*3/?L. The reference range was not used to interpret this result as normal/abnormal . GRAN MAT (NEUT) % 60.0 % (test code = 770-8) IMM GRAN % (test code 0.70 % = 9257137376) LYMPH % (test code = 25.9 % 736-9) MONO % (test code = 10.6 % 5905-5) EOS % (test code = 2.3 % 713-8) BASO % (test code = 0.5 % 706-2) GRAN MAT x10^3(ANC) 3.34 10*3/uL 1.88-7.09 (test code = 5133458203) IMM GRAN x10^3 (test 0.04 10*3/uL 0.00-0.06 code = 8965332779) LYMPH x10^3 (test code 1.44 10*3/uL 1.32-3.29 = 731-0) MONO x10^3 (test code 0.59 10*3/uL 0.33-0.92 = 742-7) EOS x10^3 (test code = 0.13 10*3/uL 0.03-0.39 711-2) BASO x10^3 (test code 0.03 10*3/uL 0.01-0.07 = 704-7) Lab Interpretation Abnormal (test code = 15691-8) [facility]. METABOLIC PANEL (03645)2022-06-30 20:28:14 Test Item Value Reference Range Interpretation Comments NA (test code = 131 mmol/L 135-145 L 2909522422) K (test code = 3.4 mmol/L 3.5-5.0 L 5650473672) CL (test code = 84 mmol/L 98-108 L 7452133775) CO2 TOTAL (test code = 35 mmol/L 23-31 H 3256353375) AGAP (test code = 12 2-16 4683479758) BUN (test code = 109 mg/dL 7-23 H 4842803563) GLUCOSE (test code = 109 mg/dL 70-110 9371403871) CREATININE (test code = 1.92 mg/dL 0.50-1.04 H 1649995433) TOTAL BILI (test code = 0.8 mg/dL 0.1-1.7 6600989017) CALCIUM (test code = 8.6 mg/dL 8.6-10.6 4074418612) T PROTEIN (test code = 7.2 g/dL 6.3-8.2 3145200644) ALBUMIN (test code = 4.2 g/dL 3.5-5.0 0952072399) ALK PHOS (test code = 108 U/L 34-122 2036339154) ALTv (test code = 17 U/L 5-35 1742-6) AST(SGOT) (test code = 31 U/L 13-40 7491902930) eGFR (test code = 24.7 mL/min/1.73m2 2003601025) HEATHER (test code = HEATHER) Association of Glomerular Filtration Rate (GFR) and Staging of Kidney Disease* + --+ --+ ------+| GFR (mL/min/1.73 m2) ?| With Kidney Damage ?| ?Without Kidney Damage+ --------+ --------+ +| ?>90 ?| ?Stage one ?| ? Normal ?+ ---+ ---+ -------+| ?60-89 ?| ?Stage two ?| ? Decreased GFR ? + --+ --+ ------+| ?30-59 ?| ?Stage three ?| ? Stage three ? + --+ --+ ------+| ?15-29 ?| ?Stage four ? | ? Stage four ?+ ---+ ---+ -------+| ?<15 (or dialysis) ? ?| ?Stage five ? | ? Stage five ?+ ---+ ---+ -------+ *Each stage assumes the associated GFR level has been in effect for at least three months. ?Stages 1 to 5, with or without kidney disease, indicate chronic kidney disease. Notes: Determination of stages one and two (with eGFR >59mL/min/1.73 m2) requires estimation of kidney damage for at least three months as defined by structural or functional abnormalities of the kidney, manifested by either:Pathological abnormalities or Markers of kidney damage (including abnormalities in the composition of the blood or urine or abnormalities in imaging tests). Lab Interpretation Abnormal (test code = 94428-7) [facility]2022-[facility]-16 22:50:07 Test Item Value Reference Range Interpretation Comments Height (test code = in 9417150522) Weight (test code = lbs 4356000058) Systolic BP (test code = mmHg 0905924397) Diastolic BP (test code mmHg = 2734887333) Heart Rate (test code = bpm 2181306208) BSA (test code = 1.44 m2 9943000502) Ao root diam (test code 3.20 cm = 4491301609) Aortic root (test code = 3.2 cm 7682379359) Ao root annulus (test 3.2 cm code = 8883512282) LVOT diameter (test code 1.80 cm = 7715810056) LVOT area (test code = 2.50 cm2 0849895990) LVIDD (test code = 4.40 cm 3471688686) Left Ventricular End 86.1 mL Diastolic Volume by Teichholz Method (test code = 4366834) IVS (test code = 0.96 cm 0668353191) Interventricular Septum 0.96 cm Diastolic Thickness by 2D (test code = 3792999) LVPWD (test code = 0.96 cm 1930910762) PW (test code = 0.96 cm 0.6-1.2 8193001873) EF(Teich) (test code = 43.30 % 3252099259) LVIDS (test code = 3.40 cm 0889522920) Left Ventricular End 48.8 mL Systolic Volume by Teichholz Method (test code = 0291933) FS (test code = 21 % 2085119617) EF - 2D (test code = 43.30 % 35684673) LA size (test code = 3.9 cm 0688106898) TR Peak Jamil (test code = 256.8 cm/s 1435097882) Triscuspid Valve mmHg Regurgitation Peak Gradient (test code = 6259654634) Pulmonic Regurgitant End 145.1 cm/s Max Velocity (test code = 2550618612) LAV(MOD-sp4) (test code 125.80 mL = 5392495522) E wave decelartion time 0.17 s (test code = 0416873762) MV stenosis pressure 1/2 51.9 ms time (test code = 0882324299) MV Peak E Jamil (test code 153.6 cm/s = 9805984580) MV Peak A Jamil (test code 15.9 cm/s = 4563364311) E/A ratio (test code = ratio 1083429360) MR max PG (test code = 97.60 mm[Hg] 5547614536) MR max jamil (test code = 493.00 cm/s 0608994688) Mr max jamil (test code = 493.0 m/s 1105534797) MV Prop V (test code = 31.90 cm/s 3316636078) MV E/e' septal (test 9.4 cm/s code = 5608034352) Tapse (test code = 1.22 cm 7838748494) LVOT stroke volume (test 51.40 cm3 code = 7649555342) LVOT peak jamil (test code 106.1 cm/s = 3473518322) LVOT mn grad (test code mmHg = 9583527941) AV LVOT peak gradient mmHg (test code = 1194260504) LVOT peak VTI (test code 20.2 cm = 3932894320) LV V1 mean (test code = 69.40 cm/s 1608756627) Aortic valve mean 105.6 cm/s velocity (test code = 5705329098) Ao peak jamil (test code = 152.4 cm/s 4366203424) Ao VTI (test code = 27.5 cm 6785462538) AV area by cont VTI 1.9 cm2 (test code = 0873229188) AV area peak jamil (test 1.8 cm2 code = 5253921088) Ao max PG (test code = 9.30 mm[Hg] 6004259805) AV peak gradient (test mmHg code = 8853473031) AV valve area (test code 1.87 cm2 = 3880634887) AV mean gradient (test mmHg code = 1936883399) AV regurgitation 678.7 ms pressure 1/2 time (test code = 1934383613) AI dec slope (test code 193.60 cm/s2 = 9541731115) AI max jamil (test code = 448.60 cm/s 5432311789) AI max PG (test code = 80.50 mm[Hg] 9497654914) Radiology Study observation (narrative) (test code = 12324-4) HEATHER (test code = HEATHER) ?Left?Ventricle: Left ventricle size is normal. Normal wall thickness. Moderate global hypokinesis present. Moderately reduced systolic function with a visually estimated EF of 30 - 35%. Unable to assess diastolic function due to arrhythmia. ?Right?Ventricle: Right ventricle size is normal. Moderately reduced systolic function. ?Tricuspid?Valve: Mild to moderate transvalvular regurgitation. Right ventricular systolic pressure is 40-45 mmHg. ?RA pressure is 15-20 mmHg. ?Left?Atrium: Left atrium is severely dilated. ?Right?Atrium: Right atrium is severely dilated. There is a prominent Eustachian valve. ?Mitral?Valve: Mild to moderate transvalvular regurgitation. ?Pericardium: Small pericardial effusion present. No indication of cardiac tamponade. Left VentricleLeft ventricle size is normal. Normal wall thickness. Moderate global hypokinesis present. Moderately reduced systolic function with a visually estimated EF of 30 - 35%. Unable to assess diastolic function due to arrhythmia.Right VentricleRight ventricle size is normal. Moderately reduced systolic function.Left AtriumLeft atrium is severely dilated.Right AtriumRight atrium is severely dilated. There is a prominent Eustachian valve.Mitral ValveMild mitral annular calcification. Mild to moderate transvalvular regurgitation.Tricusp id ValveTricuspid valve structure is normal. Mild to moderate transvalvular regurgitation. Right ventricular systolic pressure is 40-45 mmHg. RA pressure is 15-20 mmHg.Aortic ValveTricuspid. Mildly thickened cusps. Trace transvalvular regurgitation.Pulmoni c ValveNot well visualized. Mild transvalvular regurgitation.Ascendi ng AortaNormal sized aorta.PericardiumSmal l pericardial effusion present. No indication of cardiac tamponade.Study DetailsStudy quality was adequate. A complete echocardiogram was performed using 2D, color flow Doppler and spectral Doppler. [facility] [id number] 18:15:39 Test Item Value Reference Range Interpretation Comments FREE T4 (test code = See_Comment [Autom ated message] 0949168935) The system App [employer] generated this result transmitted ref erence range: 0.78 - 2 .20 ng/dL:. The ref erence range was not u sed to interpret this result as normal/abnor mal. Lab Interpretation (test Normal code = 18572-6) [facility]"
[2022-07-16 11:54] LABS: Absolute Lymphocytes (CBC) 1.2 K/uL (0.7-4.9); Lymphocytes % 19.8 % (15.3-44.8); MCV 93.1 fL (80-100); MPV 8.1 fL (7.6-11.3); RBC Red Blood Cell Count 3.76 M/uL (3.86-4.86)
[2022-07-16 12:04] LABS: Protime INR 2.09
[2022-07-16 12:16] LABS: Albumin 3.5 g/dL (3.4-5.0); Bilirubin Direct 0.4 mg/dL (0-0.2); Bilirubin Total 0.8 mg/dL (0.2-1.0); Magnesium 2.6 mg/dL (1.6-2.4); Potassium 4.9 mmol/L (3.5-5.1); Troponin High Sensitivity 17.9 pg/mL (<58.9)
--- NOTE | 2022-07-16 12:58 | RAD REPORT ---
EXAM DESCRIPTION: Deanna Single View07/16/2022 12:30 pm CLINICAL HISTORY: DYSPNEA COMPARISON: No comparisons TECHNIQUE: Portable AP view of the chest. FINDINGS: Patient is rotated to the right, which limits evaluation. The lungs are clear. No pneumoth orax or effusion. The heart appears mildly enlarged, although this can be related to AP positioning a nd patient rotation. IMPRESSION: No acute cardiopulmonary process, within limits of patient rotation.
[2022-07-16] MEDS ORDERED: FUROSEMIDE 40 MG/4 ML VIAL ONE (13:02)
--- NOTE | 2022-07-16 14:33 | EDPHYS ---
Physician Documentation [facility] Name: Natasha Frank Age: 87 yrs Sex: Female : 1935 Arrival Date: 07/16/2022 Time: 11:10 Bed 2 Private MD: ED Physician Hawk Madrid HPI: 07/16 13:40 This 87 yrs old Female presents to ER via EMS with complaints of Shortness Of snw Breath. 13:40 Severity of symptoms: At their worst the symptoms were moderate in the emergency snw department the symptoms have resolved. It is unknown whether or not the patient has had similar symptoms in the past. Historical: - Allergies: 11:44 Strawberries; jl7 11:44 NKDA; jl7 - PMHx: 11:44 Congestive heart failure; Anemia; Home O2, 3 lpm NC; Hypertensive disorder; jl7 hyperlipidemia; Hypothyroidism; Atrial fibrillation; - PSHx: 11:17 Unable to Obtain; kc6 - Immunization history:: Adult Immunizations unknown. - Social history:: Smoking status: unknown. ROS: 11:32 Constitutional: Negative for fever, chills, and weight loss, Eyes: Negative for injury, snw pain, redness, and discharge, ENT: Negative for injury, pain, and discharge, Neck: Negative for injury, pain, and swelling, Cardiovascular: Negative for chest pain, palpitations, and edema, Abdomen/GI: Negative for abdominal pain, nausea, vomiting, diarrhea, and constipation, Back: Negative for injury and pain, : Negative for injury, bleeding, discharge, and swelling, MS/Extremity: Negative for injury and deformity, Skin: Negative for injury, rash, and discoloration, Neuro: Negative for headache, weakness, numbness, tingling, and seizure, Psych: Negative for depression, anxiety, suicide ideation, homicidal ideation, and hallucinations. 11:32 Respiratory: Positive for low O2 at NH post Oxygen getting turned off. Exam: 11:25 Constitutional: This is a well developed, well nourished patient who is awake, alert, snw and in no acute distress. Head/Face: Normocephalic, atraumatic. Eyes: Pupils equal round and reactive to light, extra-ocular motions intact. Lids and lashes normal. Conjunctiva and sclera are non-icteric and not injected. Cornea within normal limits. Periorbital areas with no swelling, redness, or edema. fading ecchymosis around left eye Neck: Trachea midline, no thyromegaly or masses palpated, and no cervical lymphadenopathy. Supple, full range of motion without nuchal rigidity, or vertebral point tenderness. No Meningismus. Chest/axilla: Normal chest wall appearance and motion. Nontender with no deformity. No lesions are appreciated. 11:25 Abdomen/GI: Soft, non-tender, with normal bowel sounds. No distension or tympany. No guarding or rebound. No evidence of tenderness throughout. Back: No spinal tenderness. No costovertebral tenderness. Full range of motion. Skin: Warm, dry with normal turgor. Normal color with no rashes, no lesions, and no evidence of cellulitis. MS/ Extremity: Pulses equal, no cyanosis. Neurovascular intact. Full, normal range of motion. Neuro: Awake and alert, GCS 15, oriented to person, place, time, and situation. Cranial nerves II-XII grossly intact. Motor strength 5/5 in all extremities. Sensory grossly intact. Cerebellar exam normal. Normal gait. Psych: Awake, alert, with orientation to person, place and time. Behavior, mood, and affect are within normal limits. 11:25 ENT: H[place]IL[place]. 11:25 Cardiovascular: Rate: tachycardic, Rhythm: irregularly irregular, Pulses: no pulse deficits are appreciated, Edema: 1+ edema to level of left ankle, left foot, left toes, right ankle, right foot and right toes. 11:25 Respiratory: the patient does not display signs of respiratory distress, Respirations: normal, Breath sounds: rales, rhonchi. Vital Signs: 11:14 BP 137 / 94; Pulse 125; Resp 19 S; Temp 97.0(TE); Pulse Ox 100% on 3 lpm NC; Weight kc6 49.5 kg (M); Height 4 ft. 9 in. (144.78 cm) (R); Pain 0/10; 11:41 BP 147 / 95; Pulse 121; Resp 22 S; Pulse Ox 99% on 3 lpm NC; Pain 0/10; jl7 13:00 BP 151 / 105; Pulse 108; Resp 23; Pulse Ox 94% on 3 lpm NC; jl7 13:46 BP 145 / 102; Pulse 103; Resp 19; Pulse Ox 97% on 3 lpm NC; jl7 14:26 BP 147 / 111; Pulse 107; Resp 23; Pulse Ox 90% on 3 lpm NC; jl7 15:47 BP 157 / 96; Pulse 102; Resp 24; Pulse Ox 92% on 4 lpm NC; vg1 11:14 Body Mass Index 23.62 (49.50 kg, 144.78 cm) kc6 MDM: 11:16 Patient medically screened. snw 13:59 Differential diagnosis: Bronchitis CHF exacerbation, Chronic Obstructive Pulmonary snw Disease pneumonia, O2, medication interruption. Data reviewed: vital signs, nurses notes, lab test result(s), EKG, radiologic studies. External Records Reviewed: NH record. ED course: awaiting med list, lasix administration, and output info for disposition. 14:33 Data interpreted: monitoring and evaluation advisor: rhythm is atrial fibrillation, pt is reported to be snw at her baseline at this time.. Counseling: I had a detailed discussion with the patient and/or guardian regarding: the historical points, exam findings, and any diagnostic results supporting the discharge/admit diagnosis, the presence of at least one elevated blood pressure reading (>120/80) during this emergency department visit, lab results, radiology results, to return to the emergency department if symptoms worsen or persist or if there are any questions or concerns that arise at home. Response to treatment: the patient's symptoms have mildly improved after treatment. Special discussion: Based on the history and exam findings, there is no indication for further emergent testing or inpatient evaluation. I discussed with the patient/guardian the need to see the primary care provider for further evaluation of the symptoms. ED course: Pt is at her baseline per report and [facility] records, will discharge back to [facility] with PCP coverage on current O2 and medications. 07/16 11:20 Order name: Basic Metabolic Panel [facility] 07/16 11:20 Order name: CBC with Diff w 07/16 11:20 Order name: D-Dimer [facility] 07/16 11:20 Order name: LFT's [facility] 07/16 11:20 Order name: Magnesium [facility] 07/16 11:20 Order name: NT PRO-BNP [facility] 07/16 11:20 Order name: PT-INR [facility] 07/16 11:20 Order name: Troponin HS [facility] 07/16 12:01 Order name: CBC with Automated Diff; Complete Time: 12:01 EDMS 07/16 12:04 Order name: Protime (+INR); Complete Time: 12:25 EDMS 07/16 12:12 Order name: D-Dimer; Complete Time: 12:25 EDMS 07/16 12:16 Order name: Basic Metabolic Panel; Complete Time: 12:25 EDMS 07/16 12:16 Order name: Liver (Hepatic) Function; Complete Time: 12:25 EDMS 07/16 12:16 Order name: Troponin High Sensitivity; Complete Time: 12:25 EDMS 07/16 11:20 Order name: XRAY Chest (1 view) w 07/16 11:20 Order name: EKG; Complete Time: 11:21 w 07/16 11:20 Order name: Cardiac monitoring; Complete Time: 11:29 w 07/16 11:20 Order name: EKG - Nurse/Tech; Complete Time: 11:29 07/16 11:20 Order name: IV Saline Lock; Complete Time: 11:41 07/16 11:20 Order name: Labs collected and sent; Complete Time: 11:07/16 11:20 Order name: O2 Per Protocol; Complete Time: 11:41 w 07/16 11:20 Order name: O2 Sat Monitoring; Complete Time: 11:41 w 07/16 12:16 Order name: NT PRO-BNP; Complete Time: 12:25 EDMS 07/16 12:16 Order name: Magnesium; Complete Time: 12:25 EDMS 07/16 12:27 Order name: Misc. Order: pur wick (external cath); Complete Time: 13:44 07/16 12:35 Order name: Misc. Order: please document meds and I\T\O; Complete Time: 14:40 w 07/16 12:59 Order name: RAD; Complete Time: 12:59 EDMS EC:25 Rate is 110 beats/min. Rhythm is irregularly irregular. T waves are Inverted in leads snw II, III, aVF, V4, V5. Clinical impression: Atrial Fibrillation. Administered Medications: 13:10 Drug: Lasix (furosemide) 40 mg Route: IVP; Site: left antecubital; jl7 14:26 Follow up: Urine output 350 ml; Response: No adverse reaction jl7 Disposition Summary: 07/16/22 14:32 Discharge Ordered Location: Home snw Condition: Stable snw Diagnosis - Unspecified combined systolic (congestive) and diastolic (congestive) heart failure snw Followup: snw - With: Emergency Department - When: As needed - Reason: Worsening of condition Followup: snw - With: Private Physician - When: Today - Reason: Recheck today's complaints, Continuance of care, Re-evaluation by your physician Discharge Instructions: - Discharge Summary Sheet snw - Heart Failure, Diagnosis snw Forms: - Medication Reconciliation Form snw - Thank You Letter snw - Antibiotic Education snw - Prescription Opioid Use snw Signatures: Dispatcher [employer] EDEleonora Skaggs FNP-C AIRCRAFT TECHNICIAN-Csnw Sharita Paris RN RN jl7 Claudia Suarez RN RN kc6 Corrections: (The following items were deleted from the chart) 11:50 11:17 Allergies: Unable to obtain; kc6 jl7 11:50 11:17 Home Meds: Unable to obtain; kc6 jl7 11:50 11:17 PMHx: Unable to Obtain; kc6 jl7
--- NOTE | 2022-07-16 14:33 | ER ---
Nurse's Notes [facility] Name: Natasha Frank Age: 87 yrs Sex: Female : 1935 Arrival Date: 07/16/2022 Time: 11:10 Bed 2 Private MD: Diagnosis: Unspecified combined systolic (congestive) and diastolic (congestive) heart failure Presentation: 07/16 11:14 Chief complaint: EMS states: client is from [facility]. they called stating the client kc6 was 86% on 3L and in afib RVR en eoute. client is currenlty 100% on 3L via NC. BGL 100. Coronavirus screen: At this time, the client does not indicate any symptoms associated with coronavirus-19. Ebola Screen: No symptoms or risks identified at this time. Initial Sepsis Screen: Does the patient meet any 2 criteria? No. Patient's initial sepsis screen is negative. Does the patient have a suspected source of infection? No. Patient's initial sepsis screen is negative. Risk Assessment: Do you want to hurt yourself or someone else? Patient reports no desire to harm self or others. Onset of symptoms was July 16, 2022. 11:14 Method Of Arrival: EMS: [facility] kc6 11:14 Acuity: GERRI 3 kc6 Triage Assessment: 11:17 General: Appears in no apparent distress. uncomfortable, Behavior is calm, cooperative, kc6 appropriate for age. Pain: Denies pain. EENT: No signs and/or symptoms were reported regarding the EENT system. Neuro: Turner Agitation-Sedation Scale (RASS): 0 - Alert and Calm Level of Consciousness is awake, alert, obeys commands, Oriented to person, place, Appropriate for age. Cardiovascular: Capillary refill < 3 seconds Rhythm is atrial fibrillation with rapid ventricular response. Respiratory: Reports shortness of breath Airway is patent Trachea midline Respiratory effort is even, unlabored, Respiratory pattern is regular, symmetrical, Onset: The symptoms/episode began/occurred today, the patient has mild shortness of breath. GI: No signs and/or symptoms were reported involving the gastrointestinal system. : No signs and/or symptoms were reported regarding the genitourinary system. Derm: No signs and/or symptoms reported regarding the dermatologic system. Skin is intact, Skin is pink, warm \T\ dry. Musculoskeletal: No signs and/or symptoms reported regarding the musculoskeletal system. Circulation, motion, and sensation intact. Capillary refill < 3 seconds, Range of motion: intact in all extremities. Historical: - Allergies: 11:44 Strawberries; jl7 11:44 NKDA; jl7 - PMHx: 11:44 Congestive heart failure; Anemia; Home O2, 3 lpm NC; Hypertensive disorder; jl7 hyperlipidemia; Hypothyroidism; Atrial fibrillation; - PSHx: 11:17 Unable to Obtain; kc6 - Immunization history:: Adult Immunizations unknown. - Social history:: Smoking status: unknown. Screenin:[facility] ED Fall Risk Assessment (Adult) History of falling in the last 3 months, kc6 including since admission No falls in past 3 months (0 pts) Confusion or Disorientation Yes (5 pts) Intoxicated or Sedated No (0 pts) Impaired Gait No (0 pts) Mobility Assist Device Used Yes (1 pt) Altered Elimination No (0 pt) Score/Fall Risk Level 3 or more points = High Risk Oriented to surroundings, Maintained a safe environment, Educated pt \T\ family on fall prevention, incl call for assistance when getting out of bed, Assessed \T\ reinforced patient's understanding of fall precautions, Hourly rounding (assess needs \T\ fall precautionary measures) done. Abuse screen: Denies threats or abuse. Denies injuries from another. Nutritional screening: No deficits noted. Tuberculosis screening: No symptoms or risk factors identified. Assessment: 11:30 General: Appears in no apparent distress. uncomfortable, Behavior is calm, cooperative, jl7 appropriate for age. Pain: Denies pain. Neuro: Level of Consciousness is awake, alert, obeys commands, Oriented to person, place, situation. Cardiovascular: Patient's skin is warm and dry. Rhythm is atrial fibrillation with rapid ventricular response Chest pain is denied. Respiratory: Airway is patent Respiratory effort is even, unlabored, Respiratory pattern is symmetrical, tachypnea Breath sounds are coarse bilaterally. Derm: Skin is pink, warm \T\ dry. 11:50 Reassessment: Requested for [facility], Coby slick reports she will send it. 12:15 Reassessment: DAVID Crews notified of critical lab value: DDIMER [id number]. 12:50 Reassessment: No medication list received at this time. Coby notified again, reports jl7 she will send it. 13:46 Reassessment: Patient appears in no apparent distress at this time. No changes from jl7 previously documented assessment. Pt with shortness of breath on exertion. 14:26 Reassessment: Assisted pt to bedside commode, voided 350 mL. Pt O2 decreased to 77%, jl7 increased to 90% after 5 minutes. Contact Nurse Coby at [facility] and she reports this is her baseline. 15:20 Reassessment: Spoke with Honey, the weatherization administrator, and she stated that transportation vg1 has been set up and should be in route within an hour. Vital Signs: 11:14 BP 137 / 94; Pulse 125; Resp 19 S; Temp 97.0(TE); Pulse Ox 100% on 3 lpm NC; Weight kc6 49.5 kg (M); Height 4 ft. 9 in. (144.78 cm) (R); Pain 0/10; 11:41 BP 147 / 95; Pulse 121; Resp 22 S; Pulse Ox 99% on 3 lpm NC; Pain 0/10; jl7 13:00 BP 151 / 105; Pulse 108; Resp 23; Pulse Ox 94% on 3 lpm NC; jl7 13:46 BP 145 / 102; Pulse 103; Resp 19; Pulse Ox 97% on 3 lpm NC; jl7 14:26 BP 147 / 111; Pulse 107; Resp 23; Pulse Ox 90% on 3 lpm NC; jl7 15:47 BP 157 / 96; Pulse 102; Resp 24; Pulse Ox 92% on 4 lpm NC; vg1 11:14 Body Mass Index 23.62 (49.50 kg, 144.78 cm) 6 ED Course: 11:10 Patient arrived in ED. kc6 11:10 Client placed on continuous cardiac and pulse oximetry monitoring. NIBP monitoring jl7 applied. 11:10 Warm blanket given. jl7 11:16 Eleon[facility] Ace [facility]C [facility] snw 11:16 Hawk Madrid MD is Attending Physician. snw 11:16 Sharita Paris RN is Primary Nurse. jl7 11:17 Triage completed. kc6 11:17 Arm band placed on. kc6 11:18 Patient has correct armband on for positive identification. Placed in gown. Bed in low kc6 position. Call light in reach. Side rails up X2. 11:19 Maintain EMS IV. Dressing intact. Good blood return noted. Site clean \T\ dry. Gauge \T\ camron 6 site: 20G R Hand. 11:40 Initial lab(s) drawn, by me, sent to lab. Inserted saline lock: 20 gauge in left vg1 antecubital area, using aseptic technique. Blood collected. 15:48 No provider procedures requiring assistance completed. IV discontinued, intact, vg1 bleeding controlled, No redness/swelling at site. Pressure dressing applied. Administered Medications: 13:10 Drug: Lasix (furosemide) 40 mg Route: IVP; Site: left antecubital; jl7 14:26 Follow up: Urine output 350 ml; Response: No adverse reaction jl7 Medication: 11:30 VIS not applicable for this client. jl7 Output: 14:26 Urine: 350ml; Total: 350ml. jl7 Outcome: 14:32 Discharge ordered by . henri 15:48 [facility] to [facility] vg1 15:48 Condition: good 15:48 Discharge instructions given to patient, [facility], Instructed on discharge instructions, follow up and referral plans. Demonstrated understanding of instructions, follow-up care. 15:49 Patient left the ED. vg1 Signatures: Eleonora Ace, PIZZA BAKER-C PIZZA BAKER-Csnw Vijaya Morales, WANDER VIRAMONTES ss Sharita Paris RN RN [email or web address] Danielle Lopez RN RN vg1 Claudia Suarez, RN RN kc6 Corrections: (The following items were deleted from the chart) 11:50 11:17 Allergies: Unable to obtain; kcKenji jl7 11:50 11:17 Home Meds: Unable to obtain; kc6 jl7 11:50 11:17 PMHx: Unable to Obtain; kc6 jl7
[2022-07-16 16:16] VITALS: TEMP 97
[2022-07-16 16:36] VITALS: BP 157/96; O2SAT 92
--- NOTE | 2022-07-17 16:32 | EKG ---
Test Date: 2022-07-16 Test Time: 11:23:58 Debeaker: LUIS MEASUREMENT RESULTS: Intervals: Rate: 110 IA: QRSD: 72 QT: 330 QTc: 446 [place]: P: IA: QRS: 89 T: 266 INTERPRETIVE STATEMENTS: Atrial fibrillation with rapid ventricular response ST & T wave abnormality, consider inferolateral ischemia or digitalis effect Abnormal ECG No previous ECG available for comparison Electronically Signed On 07-17-22 16:29:45 PLANNER CHIEF by Stephen Ivey
== END 2022-07-16 15:49 | disposition home or self-care (01) ==
LOC: ER 11:03
DX: I50.40 Unspecified combined systolic (congestive) and diastolic (congestive) heart failure (principal); I10 Essential (primary) hypertension; I48.91 Unspecified atrial fibrillation; Z91.018 Allergy to other foods; Z99.81 Dependence on supplemental oxygen
CPT/HCPCS: 85025; 80048; 36415; 83735; 85610; 85379; 80076; 84484; 83880; 71045; J1940; 93005; 96374; 99284

== ENCOUNTER 2022-07-30 16:20 | Emergency (ER) | payer OTHER, MEDICARE ==
--- OUTSIDE RECORDS SUMMARY | 2022-07-30 16:33 | XMS REPORT | Continuity of Care Document ---
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 00:00: [place] and and Medical diastolic diastolic Bran ch congestive congestive [...] of systolic systolic 00:00: [place] and and Medical diastolic diastolic Bran ch heart heart failure, failure, NYHA class NYHA class 3 3 Pulmonary Pulmonary Disease Active 2021-05 Uni vers hypertensi hypertensi 1-24 it y of on on 00:00: [place] 00 Medical Branch Elevated Elevated Disease Active 2021-05 Unive rs brain brain 1-23 ity of natriureti natriureti 00:[place] c peptide c peptide 00 Medi inocencio (BNP) (BNP) Branch level level Essential Essential Disease Active 2021-05 Uni vers hypertensi hypertensi 1-23 it y of on on 00:00: [place] 00 Medical Branch Borderline Borderline Disease Active 2021-05 U nivers abnormal abnormal 1-23 ity of TFTs TFTs 00:00: [place] 00 Medical Branch Atrial Atrial Disease Active 2021-05 Univers fibrillati fibrillati 1-22 it y of on with on with 00:00: [place] RVR RVR 00 Medical Branch Post-op Post-op Disease Active 2015-05 Univers pain pain 2-21 ity of 00:00: [place] 00 Medical Branch Left knee Left knee Disease Active Uni vers pain pain 2-15 ity of 00:00: [place] 00 Medical Branch Allergies, Adverse Reactions, Alerts Allergy Allergy Status Severity Reaction(s) Onset Inactive Treating Comm ents Source Name Type Date Date Clinician Strawber Propensi Active Shortness of Univers ry ty to Breath 7-09 ity of adverse 00:00: [place] reaction 00 Medical s Branch STRAWBER DRUG Active SOB 2016-0 Univers RY INGREDI 7-09 ity of 00:00: [place] 00 Medical Branch Social History Social Habit Start Date Stop Date Quantity Comments Source History SDOH Social Unive rsity of Connections Get [place] Med ical Together Branch History SDOH Social Unive rsity of Connections [facility] [place] [facility] History SDOH Social Unive [...] University o f Transport Med 00:00:00 00:00:00 [place] Medic al Branch History SDOH 2022-07-02 2022-07-02 2 University o f Transport Non-Med 00:00:00 00:00:00 [place] M edical Branch Exposure to 2022-06-20 2022-06-30 Not sure [facility] SARS-CoV-2 (event) 00:00:00 15:34:00 [facility] [place] [facility] Alcohol intake 2022-06-30 2022-06-30 0 /d [facility] 00:00:00 00:00:00 [facility] [place] [facility] Tobacco use and 2022-04-15 2022-04-15 Smokeless Universit y of exposure 00:00:00 00:00:00 tobacco non-user [facility] dical [place] Sex Assigned At [birth year] Universit y of 00:00:00 00:00:00 [facility] [place] [facility] Smoking Status Start Date Stop Date Source Never smoked tobacco [facility] Medications Ordered Filled Start Stop Current Ordering Indication Dosage Frequency Signature Comments Components Source Medication Medication Date Date Medication? Clinician (SIG) Name Name haloperidoL Yes 2mg 2 mg, Unive rs (HALDOL) 2-10 Oral, BID, ity o f tablet 2 mg 15:00: First dose [place] 00 on Thu07/04/22 at Branch 0900, Until Discontinu ed, Routine B12/FA/D3/C Yes Take by Uni vers ALC CIT/ZN 2-10 mouth. ity of AA CHELT 14:17: [place] (VIT 11 Medical [id number] Branch D3-CALC CIT-ZN ORAL) magnesium Yes 400mg [...] AA CHELT 14:17: [place] (VIT 11 Medical [id number] Branch D3-CALC CIT-ZN ORAL) magnesium Yes 400mg [...] Kelly 07/03/22 Branch at 2245, Routine metoprolol 0 2022- Yes [id number] 100mg Take 1 Univers tartrate 2-10 -13 tablet by ity o f 100 mg 00:00: 04:59 mouth in [place] tablet 00 :00 the Medical morning Branch and 1 tablet in the evening. Do all this for 30 days. metoprolol 0 2022- Yes [id number] 100mg Take 1 Univers tartrate 2-10 03-13 tablet by ity o f 100 mg 00:00: 04:59 mouth in [place] tablet 00 :00 the Medical morning Branch and 1 tablet in the evening. Do all this for 30 days. metoprolol 2022-0 2022- No 50mg 50 mg, Univ ers tartrate 07-03- Oral, Q8H, ity of (LOPRESSOR) 20:00: 13:31 First dose [place] tablet 50 00 :42 (after Medical mg last Branch modificati on) on [facility] 07/03/22 at 1400, Until Discontinu ed, Routine metoprolol 2022-0 2022- No 25mg 25 mg, Univ ers tartrate 07-02 Oral, Q8H, ity of (LOPRESSOR) 13:45: 13:38 First dose [place] tablet 25 00 :06 on Thu Medical mg 07/02/22 at Branch 0745, Until Discontinu ed, Routine docusate 2022-0 Yes 100mg 100 mg, Unive rs (COLACE) 2 Oral, ity of capsule 100 15:00: DAILY, [place] mg 00 First dose Medical on Thu [place] 07/01/22 at 0900, Until Discontinu ed, Routine magnesium 2022-0 Yes 400mg 400 mg, Univ ers oxide -07 Oral, ity of (MAG-OX 15:00: DAILY, [place] 400) tablet 00 First dose Me dical 400 mg on [place] 07/01/22 at 0900, Until Discontinu ed, Routine KCL 2022-0 Yes 40meq 40 mEq, Univers (KLOR-CON 2- Oral, ity of M20) tablet 15:00: DAILY, [place] 40 mEq 00 First dose Medical on [place] 07/01/22 at 0900, Until Discontinu ed, Routine NaCl 0.9% 2022-2022- No 500mL at 999 Univ ers (NS) bolus 07-01-07 mL/hr, 500 it y of infusion 14:30: 13:45 mL, IV [place] 500 mL 00 :07 Infusion, Medical ONCE, 1 Branch dose, On [facility] 07/01/22 at 0830, STAT magnesium 2022-0 2022- No 2g 2 g, IV Univ ers sulfate in 07-01-07 Piggyback, it y of water 2 14:15: 18:34 Administer [place] gram/50 mL 00 :00 over 60 Medica l (4 %) Minutes, Branch infusion 2 ONCE, 1 g dose, On Thu07/01/22 at 0815, Routine potassium 0 2022- No 10meq 10 mEq, IV Univers chloride in 07-0107 Piggyback, i ty of water 10 14:00: 16:25 Q1H, 2 [place] mEq/100 mL 00 :00 doses, Medical RTU 10 mEq First dose Bra nch on Thu07/01/22 at 0800, Last dose on Thu07/01/22 at 0900, Administer over 60 Minutes, 100 mL heparin Yes 5000U 5,000 Univers (porcine) 207 Units, ity of injection 04:00: [place] 5,000 Units 00 us, Q8H, Medi inocencio First dose Branch on Thu06/30/22 at 2200, Until Discontinu ed, Routine ondansetron 0 Yes 4mg 4 mg, Slow Univers (ZOFRAN 06-30 IV Push, ity of (PF)) 23:38: Q6HPRN, [place] injection 4 17 Starting Medi inocencio mg on Thu06/30/22 at 1738, Until Discontinu ed, Routine, Nausea and Vomiting (N/V) acetaminoph Yes 650mg 650 mg, Un andry en 06 Oral, ity of (TYLENOL) 23:38: Q6HPRN, [place] tablet 650 17 Starting Medic al mg on Thu06/30/22 at 1738, Until Discontinu ed, Routine, Pain (scale 1-3) NaCl 0.9% 2022- No 1000mL at 999 Uni vers (NS) bolus 06-30 02-06 mL/hr, ity of infusion 22:45: 21:39 1,000 mL, [place] 1,000 mL 00 :00 IV Medical Piggyback, Branch ONCE, 1 dose, On Thu06/30/22 at 1645, STAT ondansetron 0 2022- No 4mg 4 mg, Slow Univers (ZOFRAN 06-30-06 IV Push, ity of (PF)) 20:00: 20:43 ONCE, 1 [place] injection 4 00 :00 dose, On Medi inocencio mg 06/30/22 Branch at 1400, Routine magnesium 2021-05- 400mg 400 mg, Uni vers oxide 1-26 12-03 Oral, BID, ity of (MAG-OX 02:00: 01:59 14 doses, [place] 400) tablet 00 :00 First dose Me dical 400 mg on Fri Branch 04/18/22 at 2000, Last dose on Thu04/25/22 at 0800, Routine B12/FA/D3/C 2021-05 Yes Take by Uni vers ALC CIT/ZN 1-25 mouth. ity of AA CHELT 16:34: [place] (VIT 07 Medical [id number] Branch D3-CALC CIT-ZN ORAL) magnesium 2021-05 Yes [...] 1-25 mouth. ity of AA CHELT 16:34: [place] (VIT 07 Medical Q52-[id number]-[id number] Branch D3-CALC CIT-ZN ORAL) magnesium 2021-05 Yes [...] mg EC 07 Medical tablet Branch B12/FA/D3/C 2022-1 Yes Take by Uni vers ALC CIT/ZN 1-25 mouth. ity of AA CHELT 16:34: [place] (VIT 07 Medical X84-[id number]-INA Branch D3-CALC CIT-ZN ORAL) magnesium 2021-05 Yes [...] Yes 40mg Take 40 mg Univers e -25 by mouth ity of (PROTONIX) 16:34: daily. [place] 40 mg EC 07 Medical tablet Branch KCL 2021-05- No 40meq 40 mEq, Univers (KLOR-CON 06-18 Oral, ity of M20) tablet 15:15: 17:39 ONCE, 1 [place] 40 mEq 00 :00 dose, On Medical Fri Branch 04/18/22 at 0915, Routine MAGNESIUM 2021-05- No Take by Univ ers OXIDE/MAG 06-18 mouth. ity of AA CHELATE 15:10: 00:00 [...] 04/17/22 at 2300, Routine acetaminoph 2021-05 Yes [id number] 1000mg Take 2 Univers en 500 mg - 9109 tablets by ity of tablet 00:00: mouth [place] 00 every 6 Medical (six) Branch hours as needed for Pain. acetaminoph 2021-05 Yes [id number] 1000mg Take 2 Univers en 500 mg 1-25 9109 tablets by ity of tablet 00:00: mouth [place] 00 every 6 Medical (six) Branch hours as needed for Pain. acetaminoph 2021-05 Yes [id number] 1000mg Take 2 Univers en 500 mg 1-25 9109 tablets by ity of tablet 00:00: mouth [place] 00 every 6 Medical (six) Branch hours as needed for Pain. acetaminoph 2021-05 Yes [id number] 1000mg Take 2 Univers en 500 mg 1-25 9109 tablets by ity of tablet 00:00: mouth [place] 00 every 6 Medical (six) Branch hours as needed for Pain. acetaminoph 2021-05 Yes [id number] 1000mg Take 2 Univers en 500 mg 1-25 9109 tablets by ity of tablet 00:00: mouth [place] 00 every 6 Medical (six) Branch hours as needed for Pain. apixaban 2021-05- No 5144 2.5mg Take 0.5 Uni vers (ELIQUIS) 5 06-18 tablets by i ty of mg tablet 00:00: 05:59 mouth in [place] 00 :00 the Medical morning Branch and 0.5 tablets in the evening. Do all this for 30 days. Indication s: prevention of thromboemb olism in paroxysmal atrial fibrillati on lisinopriL 2021-05- No [id number] 2.5mg Take 1 Univers 2.5 mg 06-18 9109 tablet by ity of tablet 00:00: 05:59 mouth in [place] 00 :00 the Medical morning Branch for 30 days. metoprolol 2021-05- No [id number] 50mg Take 1 Univers tartrate 50 06-18 9109 tablet by it y of mg tablet 00:00: 05:59 mouth in [place] 00 :00 the Medical morning Branch and 1 tablet in the evening. Do all this for 30 days. furosemide 2021-05- No [id number] 20mg Take 1 Univers 20 mg 06-18 9109 tablet by ity of tablet 00:00: 05:59 mouth in [place] 00 :00 the Medical morning Branch for 30 days. apixaban 2021-05- No 5144 2.5mg Take 0.5 Uni vers (ELIQUIS) 5 06-18 tablets by i ty of mg tablet 00:00: 05:59 mouth in [place] 00 :00 the Medical morning Branch and 0.5 tablets in the evening. Do all this for 30 days. Indication s: prevention of thromboemb olism in paroxysmal atrial fibrillati on lisinopriL 2021-05- No [id number] 2.5mg Take 1 Univers 2.5 mg 06-18 9109 tablet by ity of tablet 00:00: 05:59 mouth in [place] 00 :00 the [facility] morning Branch for 30 days. metoprolol 2021-05- No [id number] 50mg Take 1 Univers tartrate 50 06-18 9109 tablet by it y of mg tablet 00:00: 05:59 mouth in [place] 00 :00 the Medical morning Branch and 1 tablet in the evening. Do all this for 30 days. furosemide 2021-05- No [id number] 20mg Take 1 Univers 20 mg 06-18 9109 tablet by ity of tablet 00:00: 05:59 mouth in [place] 00 :00 the [facility] morning Branch for 30 days. apixaban 2021-05- No 5144 2.5mg Take 0.5 Uni vers (ELIQUIS) 5 06-18 tablets by i ty of mg tablet 00:00: 05:59 mouth in [place] 00 :00 the [facility] morning Branch and 0.5 tablets in the evening. Do all this for 30 days. Indication s: prevention of thromboemb olism in paroxysmal atrial fibrillati on lisinopriL 2021-05- No [id number] 2.5mg Take 1 Univers 2.5 mg 06-18 9109 tablet by ity of tablet 00:00: 05:59 mouth in [place] 00 :00 the [facility] morning Branch for 30 days. metoprolol 2021-05- No [id number] 50mg Take 1 Univers tartrate 50 06-18 9109 tablet by it y of mg tablet 00:00: 05:59 mouth in [place] 00 :00 the Medical morning Branch and 1 tablet in the evening. Do all this for 30 days. furosemide 2021-05- No [id number] 20mg Take 1 Univers 20 mg 06-18 [...] Q6HPRN, [place] mg 37 Starting Medical on Thu04/16/22 at 1741, Until Discontinu ed, Routine, Pain (scale 4-6) acetaminoph 2021-05 Yes 1000mg 1,000 mg, Univers en 06-16 Oral, ity of (TYLENOL) 23:41: Q6HPRN, [place] tablet 24 Starting Medical 1,000 mg on Thu Branch 04/16/22 at 1741, Until Discontinu ed, Routine, Pain (scale 1-3) pantoprazol 2021-05 Yes 40mg 40 mg, Univ ers e 06-16 Oral, ity of (PROTONIX) 15:00: DAILY, [place] EC tablet 00 First dose Medi inocencio 40 mg on Thu Branch 04/16/22 at 0900, Until Discontinu ed, Routine docusate 2021-05 Yes 100mg 100 mg, Unive rs (COLACE) 06-16 Oral, ity of capsule 100 15:00: DAILY, [place] mg 00 First dose Medical on Thu Branch 04/16/22 at 0900, Until Discontinu ed, Routine furosemide [...] 40 mEq 00 :00 dose, On Medical Thu Branch 04/16/22 at 0815, Routine enoxaparin 2021-05 Yes 1mg/kg 50 mg Univ ers (LOVENOX) 06-16 (rounded ity of injection 14:00: from 46.5 [place] 50 mg 00 mg = 1 Medical mg/kg Branch ?46.5 kg), [facility] , Q12H, First dose on Thu04/16/22 at 0800, [...] [place] tablet 50 00 on Thu Medical 04/15/22 Branch at [...] Yes 5mg 5 mg, Unive rs rine -23 Oral, ity of (FLEXERIL) 03:16: TIDPRN, [place] [...] No 1{tbl} Take 1 U nivers ydrochlorot 06-0125 tablet by it y of hiazide 00:00: 00:00 mouth [place] (DIOVAN-HCT 00 :00 daily. Medica l ) 160-12.5 Branch mg per tablet CECIL 2014-05 Yes 90mg Take 90 mg Unive rs THYROID 90 2-22 by mouth ity o f mg tablet 00:00: daily. [place] [facility] 2014-05 Yes 90mg Take 90 mg Unive rs THYROID 90 2-22 by mouth ity o f mg tablet 00:00: daily. [place] [facility] 2014-05 Yes 90mg Take 90 mg Unive rs THYROID 90 2-22 by mouth ity o f mg tablet 00:00: daily. [place] [facility] 2014-05 Yes 90mg Take 90 mg Unive rs THYROID 90 2-22 by mouth ity o f mg tablet 00:00: daily. [place] [facility] 2014-05 Yes 90mg Take 90 mg Unive rs THYROID 90 2-22 by mouth ity o f mg tablet 00:00: daily. [place] [facility] famotidine 2014-05 No Univer s (PEPCID) 40 2-22 11-25 ity of mg tablet 00:00: 00:00 [place] 00 :00 [facility] Vital Signs Vital Name Observation Time Observation Value Comments Source Heart rate 2022-07-04 14:55:00 104 /min [facility] Body temperature 2022-07-04 14:55:00 36.11 Deepa Univ ersity of [facility] [place] [facility] Respiratory rate 2022-07-04 14:55:00 18 /min Univ ersity of [facility] Branch Oxygen saturation in 2022-07-04 14:55:00 85 /min University of Arterial blood by [facility] Pulse oximetry Branch Systolic blood 2022-07-04 14:54:00 127 mm[Hg] Univer sity of pressure [facility] [place] [facility] Diastolic blood 2022-07-04 14:54:00 90 mm[Hg] Unive rsity of pressure [facility] [place] [facility] Body height 2022-07-01 02:59:00 147.3 cm Universi ty of [facility] [place] [facility] Body weight 2022-07-01 02:59:00 46.63 kg Universi ty of [facility] [place] [facility] BMI 2022-07-01 02:59:00 21.49 kg/m2 Universi ty [facility] Body temperature 2022-04-18 21:00:00 36.39 Deepa Univ ersity of [facility] [place] [facility] Systolic blood 2022-04-18 18:00:00 132 mm[Hg] Univer sity of pressure [facility] [place] [facility] Diastolic blood 2022-04-18 18:00:00 107 mm[Hg] Unive rsity of pressure [facility] [place] [facility] Heart rate 2022-04-18 18:00:00 108 /min Universi ty of [facility] [place] [facility] Respiratory rate 2022-04-18 18:00:00 18 /min Univ ersity of [facility] [place] [facility] Oxygen saturation in 2022-04-18 18:00:00 98 /min University of Arterial blood by [facility] Pulse oximetry Branch Body weight 2022-04-18 10:00:00 46.993 kg Universi ty of [facility] [place] [facility] BMI 2022-04-18 10:00:00 18.94 kg/m2 Universi ty [facility] Body height 2022-04-16 04:08:00 157.5 cm [facility] Procedures Procedure Date / Time Performing Clinician Source Performed COVID-19 (ID NOW RAPID 2022-07-04 16:05:00 Anna Aggarwal [facility]) Medical Branch MAGNESIUM 2022-07-02 11:20:00 Dae Godfrey [facility] BASIC METABOLIC PANEL 2022-07-02 11:20:00 [facility] ([facility], K, CL, CO2, Medical Branch GLUCOSE, BUN, CREATININE, CA) CBC WITH DIFF 2022-07-02 11:20:00 [facility] 2022-07-01 11:50:00 Ame [facility] THYROID STIMULATING 2022-07-01 11:50:00 Ame [facility] HORMONE [facility] BASIC METABOLIC PANEL 2022-07-01 11:50:00 Ame [facility] (NA, K, CL, CO2, Medical Branch GLUCOSE, BUN, CREATININE, CA) URINALYSIS 2022-06-30 20:53:00 Singer [facility] LACTIC ACID WHOLE BLOOD 2022-06-30 20:42:00 Singer [facility] CT CERVICAL SPINE WO 2022-06-30 20:32:21 Singer [facility] CONTRAST [facility] CT HEAD WO CONTRAST 2022-06-30 20:32:21 Singer [facility] XR PELVIS <3 VW 2022-06-30 20:22:11 Singer [facility] MAGNESIUM 2022-06-30 20:05:00 Ame [facility] COMP. METABOLIC PANEL 2022-06-30 20:05:[address] [facility] ([id number]) Medical Branch ETHANOL 2022-06-30 20:05:00 Singer [facility] CBC WITH DIFF 2022-06-30 20:05:00 Singer [facility] EKG-12 LEAD 2022-06-30 20:04:20 Keith [facility] COVID-19 (ID NOW RAPID 2022-04-18 18:58:00 Keith Lao [facility] TESTING) Medical Branch MAGNESIUM 2022-04-18 10:28:00 Keith [facility] BASIC METABOLIC PANEL 2022-04-18 10:28:00 Keith Lao [facility] (NA, K, CL, CO2, Medical Branch GLUCOSE, BUN, CREATININE, CA) CBC WITH DIFF 2022-04-18 10:28[facility]22-04-17 16:57:00 Monica Hilliard [facility] BASIC METABOLIC PANEL 2022-04-17 16:57:00 [facility] ([facility], K, CL, CO2, Medical Branch GLUCOSE, BUN, CREATININE, CA) N-TERMINAL PRO-BNP 2022-04-17 16:57:00 Monica Hilliard [facility] US GALL BLADDER 2022-04-16 22:13:00 [facility] 2022-04-16 16:40:00 Monica Hilliard [facility] HB ECG ROUTINE & RHYTHM 2022-04-16 15:54:40 Monica Hilliard [facility] TRANSTHORACIC ECHO (TTE) 2022-04-16 13:44:00 Kiley [facility] TROPONIN I 2022-04-16 10:30:00 Monica Hilliard [facility] THYROID STIMULATING 2022-04-16 10:30:00 Kiley [facility] HORMONE [facility] BASIC METABOLIC PANEL 2022-04-16 10:30:[facility] ([facility], K, CL, CO2, Medical Branch GLUCOSE, BUN, CREATININE, CA) LIPID PANEL 2022-04-16 10:30:00 Monica Hilliard [facility] ([id number])(TOTAL Medical Branch CHOLESTEROL, TRIGLYCERIDES, HDL) CBC WITH DIFF 2022-04-16 10:30:00 [facility] GLYCOS[facility]EMOGLOBIN 2022-04-16 10:30:00 Monica Hilliard [facility] (A1C) [facility] FREE T3 2022-04-16 10:30:00 Monica Hilliard [facility] N-TERMINAL PRO-BNP 2022-04-16 06:37:00 Anastacia Etienne Universjulia y of [facility] [place] [facility] Encounters Start End Encounter Admission Attending Care Care Encounter Source Date/Time Date/Time Type Type Clinicians Facility Department ID 2022-07-07 2022-07-07 Transition CYN Hickey [id number] Univers 00:00:00 00:00:00 of Care Jonatan MIRELES 350.1.13.10 ity of [place] [id number] [facility] 403 Branch 2022-06-30 2022-07-04 Inpatient X [facility] ROLAND [id number] Univers 13:52:00 13:30:00 OMAR [facility] 2022-06-30 2022-07-04 [facility]ir[facility] 1.2.840.1 [id number] Univers 13:52:00 13:30:00 Encounter Keith Lao 350.1.13.10 ity of [place] 4.2.7.2.686 [facility] [id number] [facility] 081 Branch 2022-04-23 2022-04-23 Telephone [facility] [id number] Univers 00:00:00 00:00:00 Monica APREDES 350.1.13.10 ity of [place] PROFESSIO [id number] [facility] 059 [facility] 2022-04-21 2022-04-21 Transition CYN Hickey 1.2.840.114 [id number] Univers 00:00:00 00:00:00 of Care Jonatan MIRELES 350.1.13.10 ity of [place] [id number] [facility] 403 Branch 2022-04-15 2022-04-18 [facility] [id number] Univers 20:08:00 16:15:00 ADI [facility] 2022-04-15 2022-04-18 [facility] Adi Mccloud [facility] 1.2.840.11 [id number] Univers 20:08:00 16:15:00 Encounter Anastacia Etienne 350.1.13.10 itFines[place] 4.2.7.2.686 [facility] [id number] [place] [id number] Branch Results Test Description Test Time Test Comments Results Result Comments Source MAGNESIUM 2022-07-02 12:38:25 Test Item Value Reference Range Interpretation Comme nts MAGNESIUM (test code = 0834176261) 2.1 mg/dL 1.7-2.4 Lab Interpretation (test code = 73998-1) Normal [facility] (NA, K, CL, CO2, GLUCOSE, BUN, CREATININE, CA)2022-07-02 12:38:05 Test Item Value Reference Range Interpretation Comments NA (test code = 138 mmol/L 135-145 6679503782) K (test code = 3.8 mmol/L 3.5-5.0 9017186314) CL (test code = 94 mmol/L 98-108 L 6844305226) CO2 TOTAL (test code = 37 mmol/L 23-31 H 0088134991) AGAP (test code = 7 2-16 5555817816) BUN (test code = 73 mg/dL 7-23 H 6915635028) GLUCOSE (test code = 114 mg/dL 70-110 H 9094374979) CREATININE (test code = 1.26 mg/dL 0.50-1.04 H 9261486973) CALCIUM (test code = 9.1 mg/dL 8.6-10.6 2885688222) eGFR (test code = 40.2 mL/min/1.73m2 0968263376) HEATHER (test code = HEATHER) Association of [...] tests). Lab Interpretation Abnormal (test code = 33222-2) [facility] WITH [id number] 12:21:23 Test Item Value Reference Range Interpretation Comments WBC (test code = 4.64 See_Comment [Automated 4431-2) message] The sy stem which generated this result transmitted reference range : 4.30 - 11.10 10*3/?L. The reference range was not used to interpret this result as normal/abnormal . RBC (test code = 4.29 See_Comment [Automated 560-8) message] The sy stem which generated this [...] RDW-SD (test code = 47.2 fL 39.0-49.9 15456-0) RDW-CV (test code = 14.6 % 12.0-15.5 788-0) PLT (test code = 164 See_Comment L [Automated 777-3) message] The sy stem which generated this result transmitted reference range : 166 - 358 10*3/ ?L. The reference r pamela was not used to interpret this result as normal/abnormal . MPV (test code = 10.8 fL 9.5-12.9 21771-2) NRBC/100 WBC (test 0.0 See_Comment [Automat ed code = 0641275820) message] The system which generated this result transmitted reference range : 0.0 - 10.0 /100 WBCs. The refer ence range was not u sed to interpret th is result as normal/abnormal . NRBC x10^3 (test code See_Comment [Auto mated = 6670235623) message] The s ystem which generated this result transmitted reference range : 10*3/?L. The reference range was not used to interpret this result as normal/abnormal . GRAN MAT (NEUT) % 67.0 % (test code = 770-8) IMM GRAN % (test code 0.40 % = 6292588997) LYMPH % (test code = 20.5 % 736-9) MONO % (test code = 9.5 % 5905-5) EOS % (test code = 2.2 % 713-8) BASO % (test code = 0.4 % 706-2) GRAN MAT x10^3(ANC) 3.11 10*3/uL 1.88-7.09 (test code = 0735988092) IMM GRAN x10^3 (test 0.00-0.06 code = 9643012794) LYMPH x10^3 (test code 0.95 10*3/uL 1.32-3.29 L = 731-0) MONO x10^3 (test code 0.44 10*3/uL 0.33-0.92 = 742-7) EOS x10^3 (test code = 0.10 10*3/uL 0.03-0.39 711-2) BASO x10^3 (test code 0.01-0.07 = 704-7) Lab Interpretation Abnormal (test code = 81857-5) [facility]15[facility]36 Test Item Value Reference Range Interpretation Comments MAGNESIUM (test code = 1.7 mg/dL 1.7-2.4 Sligh t hemolysis [id number]) Lab Interpretation (test Normal code = 61102-0) [facility] ALCOHOL<10mg/dL06/30/2022 2:57 PM [facility]10 Eipvauex21-929 Toxic>100 Depression of MANAGER AIR>400 Fatalities ReportedUnChrist[facility]cosCBC WITH [id number] 20:51:58 Test Item Value Reference Range Interpretation Comments WBC (test code = 5.57 See_Comment [Automated 6290-2) message] The sy stem which generated this result transmitted reference range : 4.30 - 11.10 10*3/?L. The reference range was not used to interpret this result as normal/abnormal . RBC (test code = 4.27 See_Comment [Automated 289-8) message] The sy stem which generated this [...] RDW-SD (test code = 46.2 fL 39.0-49.9 28225-8) RDW-CV (test code = 14.6 % 12.0-15.5 788-0) PLT (test code = 164 See_Comment L [Automated 237-3) message] The sy stem which generated this result transmitted reference range : 166 - 358 10*3/ ?L. The reference r pamela was not used to interpret this result as normal/abnormal . MPV (test code = 10.3 fL 9.5-12.9 78447-5) NRBC/100 WBC (test 0.0 See_Comment [Automat ed code = 0354973152) message] The system which generated this result transmitted reference range : 0.0 - 10.0 /100 WBCs. The refer ence range was not u sed to interpret th is result as normal/abnormal . NRBC x10^3 (test code See_Comment [Auto mated = 5688899727) message] The s ystem which generated this result transmitted reference range : 10*3/?L. The reference range was not used to interpret this result as normal/abnormal . GRAN MAT (NEUT) % 60.0 % (test code = 770-8) IMM GRAN % (test code 0.70 % = 4405136021) LYMPH % (test code = 25.9 % 736-9) MONO % (test code = 10.6 % 5905-5) EOS % (test code = 2.3 % 713-8) BASO % (test code = 0.5 % 706-2) GRAN MAT x10^3(ANC) 3.34 10*3/uL 1.88-7.09 (test code = 2276908316) IMM GRAN x10^3 (test 0.04 10*3/uL 0.00-0.06 code = 7818683663) LYMPH x10^3 (test code 1.44 10*3/uL 1.32-3.29 = 731-0) MONO x10^3 (test code 0.59 10*3/uL 0.33-0.92 = 742-7) EOS x10^3 (test code = 0.13 10*3/uL 0.03-0.39 711-2) BASO x10^3 (test code 0.03 10*3/uL 0.01-0.07 = 704-7) Lab Interpretation Abnormal (test code = 79329-7) [facility]. METABOLIC PANEL (12824)2022-06-30 20:28:14 Test Item Value Reference Range Interpretation Comments NA (test code = 131 mmol/L 135-145 L 6003114231) K (test code = 3.4 mmol/L 3.5-5.0 L 2619219137) CL (test code = 84 mmol/L 98-108 L 6359780562) CO2 TOTAL (test code = 35 mmol/L 23-31 H 2561782887) AGAP (test code = 12 2-16 8346551823) BUN (test code = 109 mg/dL 7-23 H 2079655880) GLUCOSE (test code = 109 mg/dL 70-110 4730676391) CREATININE (test code = 1.92 mg/dL 0.50-1.04 H 0245462808) TOTAL BILI (test code = 0.8 mg/dL 0.1-1.3 3858124658) CALCIUM (test code = 8.6 mg/dL 8.6-10.6 8290508089) T PROTEIN (test code = 7.2 g/dL 6.3-8.2 2397679601) ALBUMIN (test code = 4.2 g/dL 3.5-5.0 7550369681) ALK PHOS (test code = 108 U/L 34-122 8203380950) ALTv (test code = 17 U/L 5-35 1742-6) AST(SGOT) (test code = 31 U/L 13-40 1832242095) eGFR (test code = 24.7 mL/min/1.73m2 0765972312) HEATHER (test code = HEATHER) Association of [...] tests). Lab Interpretation Abnormal (test code = 65475-9) [facility] 22:50:07 Test Item Value Reference Range Interpretation Comments Height (test code = in 3957665256) Weight (test code = lbs 1429263168) Systolic BP (test code = mmHg 0880316786) Diastolic BP (test code mmHg = 1983940860) Heart Rate (test code = bpm 3662488952) BSA (test code = 1.44 m2 7340891003) Ao root diam (test code 3.20 cm = 3382428060) Aortic root (test code = 3.2 cm 9609697271) Ao root annulus (test 3.2 cm code = 5691123251) LVOT diameter (test code 1.80 cm = 4186988849) LVOT area (test code = 2.50 cm2 5936320574) LVIDD (test code = 4.40 cm 2972730397) Left Ventricular End 86.1 mL Diastolic Volume by Teichholz Method (test code = 9858834) IVS (test code = 0.96 cm 9937763154) Interventricular Septum 0.96 cm Diastolic Thickness by 2D (test code = 6838451) LVPWD (test code = 0.96 cm 6397132818) PW (test code = 0.96 cm 0.6-1.9 6733732756) EF(Teich) (test code = 43.30 % 6765921743) LVIDS (test code = 3.40 cm 9366487852) Left Ventricular End 48.8 mL Systolic Volume by Teichholz Method (test code = 1959364) FS (test code = 21 % 4551882891) EF - 2D (test code = 43.30 % 47887199) LA size (test code = 3.9 cm 9674848384) TR Peak Jamil (test code = 256.8 cm/s 8226676078) Triscuspid Valve mmHg Regurgitation Peak Gradient (test code = 4696040411) Pulmonic Regurgitant End 145.1 cm/s Max Velocity (test code = 9857676741) LAV(MOD-sp4) (test code 125.80 mL = 6694412984) E wave decelartion time 0.17 s (test code = 6655382595) MV stenosis pressure 1/2 51.9 ms time (test code = 4488686763) MV Peak E Jamil (test code 153.6 cm/s = 4729774343) MV Peak A Jamil (test code 15.9 cm/s = 4348569834) E/A ratio (test code = ratio 3139133959) MR max PG (test code = 97.60 mm[Hg] 7648851387) MR max jamil (test code = 493.00 cm/s 1503583073) Mr max jamil (test code = 493.0 m/s 4851727513) MV Prop V (test code = 31.90 cm/s 9974932171) MV E/e' septal (test 9.4 cm/s code = 8910055762) Tapse (test code = 1.22 cm 9362557664) LVOT stroke volume (test 51.40 cm3 code = 7132388010) LVOT peak jamil (test code 106.1 cm/s = 9868992259) LVOT mn grad (test code mmHg = 3113284002) AV LVOT peak gradient mmHg (test code = 6921811609) LVOT peak VTI (test code 20.2 cm = 7586114325) LV V1 mean (test code = 69.40 cm/s 4209759705) Aortic valve mean 105.6 cm/s velocity (test code = 3864999006) Ao peak jamil (test code = 152.4 cm/s 3761620452) Ao VTI (test code = 27.5 cm 1353758739) AV area by cont VTI 1.9 cm2 (test code = 7958567040) AV area peak jamil (test 1.8 cm2 code = 9480713529) Ao max PG (test code = 9.30 mm[Hg] 4033552598) AV peak gradient (test mmHg code = 9365950820) AV valve area (test code 1.87 cm2 = 8860438072) AV mean gradient (test mmHg code = 9198339310) AV regurgitation 678.7 ms pressure 1/2 time (test code = 1605700835) AI dec slope (test code 193.60 cm/s2 = 0623389059) AI max jamil (test code = 448.60 cm/s 9814075908) AI max PG (test code = 80.50 mm[Hg] 5589230053) Radiology Study observation (narrative) (test code = 06226-0) HEATHER (test code = HEATHER) ?Left?Ventricle: Left [...] 2D, color flow Doppler and spectral Doppler. [facility] [id number] 18:15:39 Test Item Value Reference Range Interpretation Comments FREE T4 (test code = See_Comment [Autom ated message] 7087093681) The system [employer] generated this result transmitted ref erence range: 0.78 - 2 .20 ng/dL:. The ref erence range was not u sed to interpret this result as normal/abnor mal. Lab Interpretation (test Normal code = 28977-1) [facility]"
[2022-07-30 17:17] LABS: Absolute Lymphocytes (CBC) 0.8 K/uL (0.7-4.9); Hematocrit 38.7 % (36.0-45.0); MCV 96.1 fL (80-100); MPV 8.1 fL (7.6-11.3); RBC Red Blood Cell Count 4.03 M/uL (3.86-4.86)
[2022-07-30 17:18] LABS: Anisocytosis 1+; Blood Morphology Comment NOTED (NOT SEEN); Platelet Estimate ADEQ; White Blood Cell Scan OK (OK)
[2022-07-30] MEDS ORDERED: ACETAMINOPHEN 650MG/RECT SUPP PR ONE (17:31)
[2022-07-30 17:47] LABS: Albumin 3.3 g/dL (3.4-5.0); Bilirubin Total 1.3 mg/dL (0.2-1.0); Potassium 4.1 mmol/L (3.5-5.1); Protein, Total 6.3 g/dL (6.4-8.2)
[2022-07-30 17:51] LABS: Urine Blood Negative (Negative); Urine Glucose Negative (Negative); Urine Protein 3+ (Negative); Urine Specific Gravity >=1.030 (1.005-1.030); Urine pH 5.5 (5.0-7.0)
[2022-07-30 18:10] LABS: SARS-CoV-2 Antigen Rapid Res Negative (Negative)
[2022-07-30 18:12] LABS: Protime INR 1.89
[2022-07-30 18:18] LABS: Transitional Epithelial <5 /HPF (None Seen); Urine Bacteria None Seen /HPF (<20); Urine Mucus Slight /HPF (None Seen); Urine RBC <5 /HPF (None Seen)
--- NOTE | 2022-07-30 18:48 | RAD REPORT ---
EXAM DESCRIPTION: RADChest Single View07/30/2022 5:25 pm CLINICAL HISTORY: AMS/Sepsis COMPARISON: Chest Single View dated 07/16/2022 TECHNIQUE: Portable AP view of the chest. FINDINGS: Developing patchy right perihilar and lower lung airspace opacities. Elevation of the righ t hemidiaphragm limits evaluation. Background interstitial prominence, progressive since the prior ex am. No pneumothorax or effusion. Heart is mildly enlarged. Mediastinal contours are unremarkable, all owing for patient rotation. IMPRESSION: Developing patchy right perihilar and lower lung airspace opacities, which may reflect d eveloping pneumonia. Background mild central venous congestion.
[2022-07-30 21:49] VITALS: BP 119/68; TEMP 98.5; O2SAT 97
--- NOTE | 2022-07-31 16:22 | EKG ---
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
--- NOTE | 2022-08-15 15:18 | ER ---
Nurse's Notes [facility] Name: Natasha Frank Age: 87 yrs Sex: Female : 1935 Arrival Date: 07/30/2022 Time: 16:22 Bed 20 Private MD: Diagnosis: Unspecified atrial fibrillation;fluid overload with renal insufficiency Presentation: 07/30 16:47 Chief complaint: Patient states: AMS for 2 days. Chief complaint: EMS states: A fib ll1 rate 100-140, FS 120. 85% RA, BP 120/100. 18 G R FA. Coronavirus screen: Vaccine status: Patient reports receiving the 2nd dose of the covid vaccine. Client denies travel out of the [place] in the last 14 days. At this time, the client does not indicate any symptoms associated with coronavirus-19. Ebola Screen: Patient denies travel to an Ebola-affected area in the 21 days before illness onset. Initial Sepsis Screen: Does the patient meet any 2 criteria? Altered Mental Status. HR > 90 bpm. Yes Does the patient have a suspected source of infection? No. Patient's initial sepsis screen is negative. Risk Assessment: Do you want to hurt yourself or someone else? Patient reports no desire to harm self or others. Onset of symptoms was July 29, 2022. 16:47 Method Of Arrival: EMS: [facility] 16:47 Acuity: GERRI 2 ll1 Triage Assessment: 16:47 General: Appears distressed, uncomfortable, Behavior is appropriate for age, restless. ll1 Pain: Denies pain. Neuro: Level of Consciousness is awake, confused, Contract Accountant are weak bilaterally Weakness Speech is slurred, Facial symmetry appears normal, Reports. Cardiovascular: Rhythm is atrial fibrillation with rapid ventricular response. Respiratory: Airway is patent Trachea midline Respiratory effort is even, labored, Respiratory pattern is regular, symmetrical, Breath sounds are coarse bilaterally. GI: No deficits noted. Historical: - Allergies: 16:46 Strawberries; ll1 - PMHx: 16:46 Anemia; Atrial fibrillation; Congestive heart failure; Home O2, 3 lpm NC; ll1 Hyperlipidemia; Hypertensive disorder; Hypothyroidism; Dementia; Depressive disorder; - PSHx: 16:46 Unable to Obtain; ll1 - Immunization history:: Client reports receiving the 2nd dose of the Covid vaccine. - Social history:: Smoking status: Patient denies any tobacco usage or history of. Screenin:42 [facility] ED Fall Risk Assessment (Adult) Confusion or Disorientation Yes (5 pts) ll1 Impaired Gait Yes (1 pt) Mobility Assist Device Used Yes (1 pt) Score/Fall Risk Level 3 or more points = High Risk Oriented to surroundings, Maintained a safe environment, Educated pt \T\ family on fall prevention, incl call for assistance when getting out of bed, Hourly rounding (assess needs \T\ fall precautionary measures) done, Offered frequent toileting (1:1 observation), Remained with patient while ambulating. Abuse screen: Denies threats or abuse. Nutritional screening: No deficits noted. Tuberculosis screening: No symptoms or risk factors identified. Assessment: 17:25 Reassessment: No changes from previously documented assessment. Patient and/or family ap3 updated on plan of care and expected duration. Pain level reassessed. 18:09 Reassessment: No changes from previously documented assessment. Patient and/or family ll1 updated on plan of care and expected duration. Pain level reassessed. 18:42 Reassessment: No changes from previously documented assessment. Patient and/or family ll1 updated on plan of care and expected duration. Pain level reassessed. 18:51 Reassessment: No changes from previously documented assessment. Rema at [place] [id number] given report on phone. 19:28 Reassessment: Patient appears in no apparent distress at this time. called report to sharita Julioh at [facility]. 20:14 Reassessment: discharge pending transportation service. aa 20:36 Reassessment: Patient appears in no apparent distress at this time. Patient and/or aa9 family updated on plan of care and expected duration. Pain level reassessed. pt [facility] via personal vehicle with daughter in wheelchair. Vital Signs: 16:47 BP 156 / 102; Pulse 120; Resp 20; Temp 98.2; Pulse Ox 100% on 3 lpm NC; Pain 0/10; ll1 17:44 BP 144 / 99; Pulse 102; Resp 20; Pulse Ox 93% on 3 lpm NC; ll1 18:42 BP 149 / 106; Pulse 116; Resp 20; Pulse Ox 95% on 3 lpm NC; ll1 20:37 BP 146 / 92; Pulse 90; Resp 19 S; Temp 98.3(O); Pulse Ox 99% on R/A; aa9 16:47 Pain Scale: Adult ll1 ED Course: 16:22 Patient arrived in ED. snw 16:22 [facility] Ace [facility]C [facility] snw 16:22 Nura Oconnor DO is Attending Physician. snw 16:46 Jerilyn Freeman, WANDER is Primary Nurse. ll1 16:47 Arm band placed on Patient placed in an exam room, on a stretcher. ll1 16:49 Triage completed. ll1 17:00 Maintain EMS IV. Dressing intact. Good blood return noted. Site clean \T\ dry. Gauge \T\ ll 1 site: 18 G R FA. 17:20 Patient has correct armband on for positive identification. Bed in low position. Call ll1 light in reach. Side rails up X2. Client placed on continuous cardiac and pulse oximetry monitoring. NIBP monitoring applied. security monitor on. 17:25 SARS RAPID Sent. ap3 17:27 Chest Single View XRAY In Process Unspecified. EDMS 17:45 Betancur cath inserted, using sterile technique, 16 Fr., by mo, balloon inflated, to ll1 gravity drainage, urine specimen collected. 18:43 No provider procedures requiring assistance completed. ll1 20:36 Betancur cath removed intact, balloon deflated, 400 ml dark yellow urine in collection bag.aa9 Administered Medications: 17:08 Drug: NS 0.9% IV 500 ml Route: IV; Rate: bolus; Site: right forearm; ap3 17:08 Follow up: Response: No adverse reaction; IV Status: Completed infusion; IV Intake: ap3 500ml 17:35 Drug: Acetaminophen CA Suppository 650 mg Route: CA; ll1 18:44 Follow up: Response: No adverse reaction ll1 18:09 Drug: Furosemide IVP 40 mg Route: IVP; Site: right forearm; ll1 18:44 Follow up: Response: No adverse reaction ll1 18:52 CANCELLED (Duplicate Order): levofloxacin IVPB 500 mg 100 ml IVPB once over 60 mins ll1 18:59 Drug: levofloxacin IVPB 500 mg Volume: 100 ml; Route: IVPB; Infused Over: 60 mins; ll1 Site: right forearm; Medication: 18:43 VIS not applicable for this client. ll1 Intake: 17:08 IV: 500ml; Total: 500ml. ap3 Outcome: 18:32 Discharge ordered by MD. álvarez 20:38 Patient left the ED. aa9 Signatures: Dispatcher [employer] EDEleonora Skaggs FNP-C FNP-Kriss Badillo RN RN ap3 Jerilyn Freeman RN RN ll1 Hayley Garg RN RN aa9
--- NOTE | 2022-08-15 15:19 | EDPHYS ---
Physician Documentation [facility] Name: Natasha Frank Age: 87 yrs Sex: Female : 1935 Arrival Date: 07/30/2022 Time: 16:22 Bed 20 Private MD: ED Physician Nura Oconnor HPI: 07/30 16:46 This 87 yrs old Female presents to ER via Unassigned with complaints of AMS, snw fever. 16:46 Pt has a hx of dementia but seemed more confused, noted to have increased heartrate, snw low oxygen saturation.. Onset: The symptoms/episode began/occurred acutely, 3 day(s) ago, and became persistent. Severity of symptoms: At their worst the symptoms were moderate. It is unknown whether or not the patient has had similar symptoms in the past. It is unknown whether or not the patient has recently seen a physician. per [place]. Historical: - Allergies: 16:46 Strawberries; ll1 - PMHx: 16:46 Anemia; Atrial fibrillation; Congestive heart failure; Home O2, 3 lpm NC; ll1 Hyperlipidemia; Hypertensive disorder; Hypothyroidism; Dementia; Depressive disorder; - PSHx: 16:46 Unable to Obtain; ll1 - Immunization history:: Client reports receiving the 2nd dose of the Covid vaccine. - Social history:: Smoking status: Patient denies any tobacco usage or history of. ROS: 16:45 Eyes: Negative for injury, pain, redness, and discharge, ENT: Negative for injury, snw pain, and discharge, Neck: Negative for injury, pain, and swelling, Cardiovascular: Negative for chest pain, palpitations, and edema, hx of a. fib 16:45 Abdomen/GI: Negative for abdominal pain, nausea, vomiting, diarrhea, and constipation, Back: Negative for injury and pain, : Negative for injury, bleeding, discharge, and swelling, MS/Extremity: Negative for injury and deformity, Skin: Negative for injury, rash, and discoloration. 16:45 Constitutional: Positive for fever, malaise. 16:45 Respiratory: Positive for low sats at [place]. 16:45 Neuro: Positive for altered mental status, hx of dementia. Exam: 16:40 Head/Face: Normocephalic, atraumatic. Eyes: Pupils equal round and reactive to light, snw extra-ocular motions intact. Lids and lashes normal. Conjunctiva and sclera are non-icteric and not injected. Cornea within normal limits. Periorbital areas with no swelling, redness, or edema. ENT: Nares patent. No nasal discharge, no septal abnormalities noted. Tympanic membranes are normal and external auditory canals are clear. Oropharynx with no redness, swelling, or masses, exudates, or evidence of obstruction, uvula midline. Mucous membranes moist. Neck: Trachea midline, no thyromegaly or masses palpated, and no cervical lymphadenopathy. Supple, full range of motion without nuchal rigidity, or vertebral point tenderness. No Meningismus. Chest/axilla: Normal chest wall appearance and motion. Nontender with no deformity. No lesions are appreciated. 16:40 Abdomen/GI: Soft, non-tender, with normal bowel sounds. No distension or tympany. No guarding or rebound. No evidence of tenderness throughout. Back: No spinal tenderness. No costovertebral tenderness. Full range of motion. MS/ Extremity: Pulses equal, no cyanosis. Neurovascular intact. Full, normal range of motion. 16:40 Constitutional: The patient appears awake, febrile, restless, altered per NH staff 16:40 Cardiovascular: Rate: tachycardic, Rhythm: irregularly irregular, Heart sounds: normal, normal S1and S2, Edema: is not appreciated. 16:40 Respiratory: the patient does not display signs of respiratory distress, Respirations: shallow respirations, tachypnea, that is moderate, Breath sounds: rales, that are moderate, are heard in the left posterior lower lobe, bronchial sounds. 16:40 Skin: Turgor: is poor. 16:40 Neuro: Orientation: unable to test, the patient has a history of dementia. Vital Signs: 16:47 BP 156 / 102; Pulse 120; Resp 20; Temp 98.2; Pulse Ox 100% on 3 lpm NC; Pain 0/10; ll1 17:44 BP 144 / 99; Pulse 102; Resp 20; Pulse Ox 93% on 3 lpm NC; ll1 18:42 BP 149 / 106; Pulse 116; Resp 20; Pulse Ox 95% on 3 lpm NC; ll1 20:37 BP 146 / 92; Pulse 90; Resp 19 S; Temp 98.3(O); Pulse Ox 99% on R/A; aa9 16:47 Pain Scale: Adult ll1 MDM: 16:22 Patient medically screened. snw 16:42 Differential Diagnosis altered mental status, sepsis. Data reviewed: vital signs, snw nurses notes, EMS record, shelter records. Consideration of Admission/Observation Escalation of care including admission/observation considered. I considered the following discharge prescriptions or medication management in the emergency department Medications were administered in the Emergency Department. See MAR. Historians other than the Patient: EMS: [facility]. 18:00 Independent interpretation of the following test(s) in the Emergency Department X-Ray: snw My interpretation is not significantly different from previous with overload noted. 18:00 Counseling: I had a detailed discussion with the patient and/or guardian regarding: the snw historical points, exam findings, and any diagnostic results supporting the discharge/admit diagnosis, the presence of at least one elevated blood pressure reading (>120/80) during this emergency department visit, lab results, radiology results, the need for outpatient follow up, for definitive care, to return to the emergency department if symptoms worsen or persist or if there are any questions or concerns that arise at home. Awaiting: transfer back to [place]. Special discussion: I have referred the patient to see his PCP for further evaluation of high blood pressure. Based on the history and exam findings, there is no indication for further emergent testing or inpatient evaluation. I discussed with the patient/guardian the need to see the primary care provider for further evaluation of the symptoms. 07/30 16:25 Order name: Blood Culture Adult (2) [facility] 07/30 16:25 Order name: CBC with Diff; Complete Time: 17:19 snw 07/30 16:25 Order name: CMP; Complete Time: 17:48 snw 07/30 16:25 Order name: Lactate w/ 2H reflex if indic.; Complete Time: 17:40 snw 07/30 16:25 Order name: Protime (+inr); Complete Time: 18:14 snw 07/30 16:25 Order name: Ptt, Activated; Complete Time: 18:14 snw 07/30 16:25 Order name: Urine Culture w 07/30 16:25 Order name: Urine Microscopic Only; Complete Time: 18:21 snw 07/30 16:40 Order name: SARS RAPID; Complete Time: 18:14 snw 07/30 17:18 Order name: CBC Smear Scan; Complete Time: 17:19 EDMS 07/30 17:51 Order name: Urine Dipstick-Ancillary; Complete Time: 17:52 EDMS 07/30 16:25 Order name: Chest Single View XRAY; Complete Time: 18:50 snw 07/30 16:25 Order name: EKG; Complete Time: 16:26 snw 07/30 16:25 Order name: Accucheck; Complete Time: 17:08 snw 07/30 16:25 Order name: Cardiac monitoring; Complete Time: 17:08 snw 07/30 16:25 Order name: Cath; Complete Time: 17:44 snw 07/30 16:25 Order name: EKG - Nurse/Tech; Complete Time: 17:08 snw 07/30 16:25 Order name: IV Saline Lock - Large Bore; Complete Time: 17:08 snw 07/30 16:25 Order name: Labs collected and sent; Complete Time: 17:08 snw 07/30 16:25 Order name: O2 Per Protocol; Complete Time: 17:08 snw 07/30 16:25 Order name: O2 Sat Monitoring; Complete Time: 17:08 snw 07/30 16:25 Order name: Vital Signs; Complete Time: 17:08 snw 07/30 17:22 Order name: Labs - recollect needed: recollect blue top, fill to line; Complete Time: bd 17:44 EC:25 Rate is 117 beats/min. Rhythm is irregularly irregular. T waves are Inverted in leads snw I, II, III, aVF. Clinical impression: Atrial Fibrillation. Administered Medications: 17:08 Drug: NS 0.9% IV 500 ml Route: IV; Rate: bolus; Site: right forearm; ap3 17:08 Follow up: Response: No adverse reaction; IV Status: Completed infusion; IV Intake: ap3 500ml 17:35 Drug: Acetaminophen MN Suppository 650 mg Route: MN; ll1 18:44 Follow up: Response: No adverse reaction ll1 18:09 Drug: Furosemide IVP 40 mg Route: IVP; Site: right forearm; ll1 18:44 Follow up: Response: No adverse reaction ll1 18:52 CANCELLED (Duplicate Order): levofloxacin IVPB 500 mg 100 ml IVPB once over 60 mins ll1 18:59 Drug: levofloxacin IVPB 500 mg Volume: 100 ml; Route: IVPB; Infused Over: 60 mins; ll1 Site: right forearm; Disposition: 16:56 Co-signature as Attending Physician, Nura BAKER was immediately available on-site ms3 in the Emergency Department for consultation in the care of the patient. Disposition Summary: 07/30/22 18:32 Discharge Ordered Location: Home snw Condition: Stable snw Diagnosis - Unspecified atrial fibrillation snw - fluid overload with renal insufficiency snw Followup: snw - With: Emergency Department - When: As needed - Reason: Worsening of condition Followup: snw - With: Private Physician - When: Tomorrow - Reason: Recheck today's complaints, Continuance of care, Re-evaluation by your physician Discharge Instructions: - Discharge Summary Sheet snw - Atrial Fibrillation snw - Dementia snw - Community-Acquired Pneumonia, Adult snw - Heart Failure Exacerbation snw Forms: - Medication Reconciliation Form snw - Thank You Letter snw - Antibiotic Education snw - Prescription Opioid Use snw Prescriptions: - levofloxacin 500 mg Oral Tablet - take 1 tablet by ORAL route once daily for 7 days; 7 tablet; Refills: 0, bs3 Product Selection Permitted Signatures: Dispatcher [employer] EDMS Crista Murphy Shelly, FLOOR CARE TECHNICIAN-C FLOOR CARE TECHNICIAN-Csnw Kriss Mejia RN RN ap3 Jerilyn Freeman RN RN ll1 Nura Oconnor DO DO ms3 Corrections: (The following items were deleted from the chart) 18:52 18:52 levofloxacin IVPB 500 mg 100 ml IVPB once over 60 mins ordered. ll1 ll1
== END 2022-07-30 20:38 | disposition home or self-care (01) ==
LOC: ER 16:20
DX: I48.91 Unspecified atrial fibrillation (principal); E87.70 Fluid overload, unspecified; N28.9 Disorder of kidney and ureter, unspecified; I50.9 Heart failure, unspecified; I10 Essential (primary) hypertension; F03.90 Unspecified dementia, unspecified severity, without behavioral disturbance, psychotic disturbance, mood disturbance, and anxiety; Z91.018 Allergy to other foods
CPT/HCPCS: 36415; 51702; 71045; 80053; 81003; 81015; 83605; 85025; 85610; 85730; 87040; 87086; 87088; 87811; 93005; 96374; 96375; 99285

== ENCOUNTER 2022-07-31 18:05 | Inpatient (IN) | payer OTHER, MEDICARE ==
--- OUTSIDE RECORDS SUMMARY | 2022-07-31 18:10 | XMS REPORT | Continuity of Care Document ---
:1935 Author Organization [facility] t Address [address] [place] [address] [address] [place] [address] Care Team Providers Name Role Phone ENOCH ENID RAINEY Primary Care Physician Unavailable Edelmira VIRAMONTES, Jonatan Catalan Attending Clinician Unavailable OMAR OBREGON Attending Clinician Unavailable Anirudh Brunson DO Attending Clinician Keith Lao DO Attending Clinician Omar Obregon MD Attending Clinician Babak FORRESTER, Monica KYasmaniHYasmani Attending Clinician ADI MCCLOUD Attending Clinician Unavailable [...] 1-24 it y of on on 00:00: [place] 00 Medical Branch Elevated Elevated Disease Active 2021-05 Unive rs brain brain 1-23 ity of natriureti natriureti 00:00[place] c peptide c peptide 00 Medi inocencio (BNP) (BNP) Branch level level Essential Essential Disease Active 2021-05 Uni vers hypertensi hypertensi 1-23 it y of on on 00:00: [place] 00 Medical Branch Borderline Borderline Disease Active 2021-05 U mary abnormal abnormal 1-23 ity of TFTs TFTs 00:00: [place] 00 Medical Branch Atrial Atrial Disease Active 2021-05 Univers fibrillati fibrillati 1-22 it y of on with on with 00:00: [place] RVR RVR 00 Medical Branch Post-op Post-op Disease Active 2015-05 Univers pain pain 2-21 ity of 00:00: [place] 00 Medical Branch Left knee Left knee Disease Active Uni vers pain pain 2-15 ity of 00:00: [place] 00 Medical Branch Allergies, Adverse Reactions, Alerts [...] History SDOH Social Unive rsity of Connections [facility] [place] [facility] History SDOH Social Unive rsity of Connections [place] [facility] Membership [facility] History SDOH Social Unive rsity of Connections [place] [facility] Meetings Branch History of tobacco Passive [...] University o f Transport Med 00:00:00 00:00:00 [place] Medic al Branch History SDOH 2022-07-02 2022-07-02 2 University o f Transport Non-Med 00:00:00 00:00:00 [place] M edical Branch Exposure to 2022-06-20 2022-06-30 Not sure [facility] SARS-CoV-2 (event) 00:00:00 15:34:00 [facility] Alcohol intake 2022-06-30 2022-06-30 0 /d [facility] 00:00:00 00:00:00 [facility] Tobacco use and 2022-04-15 2022-04-15 Smokeless Universit y of exposure 00:00:00 00:00:[address] tobacco non-user [facility] Sex Assigned At [birth year] Universit y of 00:00:00 00:00:00 [facility] Smoking Status Start Date Stop Date Source Never smoked tobacco [facility] Medications Ordered Filled Start Stop Current Ordering Indication Dosage Frequency Signature Comments Components Source Medication Medication Date Date Medication? Clinician (SIG) Name Name haloperidoL Yes 2mg 2 mg, Unive rs (HALDOL) 2-10 Oral, BID, ity o f tablet 2 mg 15:00: First dose [place] 00 on Thu07/04/22 at [place] 0900, Until Discontinu ed, Routine B12/FA/D3/C Yes Take by Uni vers ALC CIT/ZN 2-10 mouth. ity of AA CHELT 14:17: [place] (VIT 11 Medical R97-[id number] Branch D3-CALC CIT-ZN ORAL) magnesium Yes 400mg [...] [place] 40 mg EC 11 Medical tablet [place] B12/FA/D3/C Yes Take by Uni vers ALC CIT/ZN 2-10 mouth. ity of AA CHELT 14:17: [place] (VIT 11 Medical [id number] Branch D3-CALC CIT-ZN ORAL) magnesium Yes 400mg [...] Branch at 2245, Routine metoprolol 2022- Yes [id number] 100mg Take 1 Univers tartrate 2-10 03-13 tablet by ity o f 100 mg 00:00: 04:59 mouth in [place] tablet 00 :00 the Medical morning Branch and 1 tablet in the evening. Do all this for 30 days. metoprolol 0 2022- Yes [id number] 100mg Take 1 Univers tartrate 2-10 03-13 tablet by ity o f 100 mg 00:00: 04:59 mouth in [place] tablet 00 :00 the Medical morning Branch and 1 tablet in the evening. Do all this for 30 days. metoprolol 2022- No 50mg 50 mg, Univ ers tartrate 07-03 Oral, Q8H, ity of (LOPRESSOR) 20:00: 13:31 First dose [place] tablet 50 00 :42 (after Medical mg last Branch modificati on) on [facility] 07/03/22 at 1400, Until Discontinu ed, Routine metoprolol 2022- No 25mg 25 mg, [facility] ers tartrate 07-02 Oral, Q8H, ity of (LOPRESSOR) 13:45: 13:38 First dose [place] tablet 25 00 :06 on Thu Medical mg 07/02/22 at Branch 0745, Until Discontinu ed, Routine docusate Yes 100mg 100 mg, Unive rs (COLACE) 07-01 Oral, ity of capsule 100 15:00: DAILY, [place] mg 00 First dose Medical on [place] 07/01/22 at 0900, Until Discontinu ed, Routine magnesium Yes 400mg 400 mg, Univ ers oxide 07-01 Oral, ity of (MAG-OX 15:00: DAILY, [place] 400) tablet 00 First dose Me dical 400 mg on [facility] 07/01/22 at 0900, Until Discontinu ed, Routine KCL Yes 40meq 40 mEq, Univers (KLOR-CON - Oral, ity of M20) tablet 15:00: DAILY, [place] 40 mEq 00 First dose Medical on [facility] 07/01/22 at 0900, Until Discontinu ed, Routine NaCl 0.9% 2022- No 500mL at 999 Univ ers (NS) bolus 07-01- mL/hr, 500 it y of infusion 14:30: 13:45 mL, IV [place] 500 mL 00 :07 Infusion, Medical ONCE, 1 Branch dose, On [facility] 07/01/22 at 0830, STAT magnesium 2022-2022- No [...] Medical RTU 10 mEq First dose Bra nc on Thu07/01/22 at 0800, Last dose on Thu07/01/22 at 0900, Administer over 60 Minutes, 100 mL heparin Yes 5000U 5,000 Univers (porcine) 07-01 Units, ity of injection 04:00: [place]cut[place]o [place] 5,000 Units 00 us, Q8H, Medi inocencio First dose Branch on Thu06/30/22 at 2200, Until Discontinu ed, Routine ondansetron 0 Yes 4mg 4 mg, Slow Univers (ZOFRAN 06-30 IV Push, ity of (PF)) 23:38: Q6HPRN, [place] injection 4 17 Starting Medi inocencio mg on Thu06/30/22 at 1738, Until Discontinu ed, Routine, Nausea and Vomiting (N/V) acetaminoph Yes 650mg 650 mg, Un andry en 06 Oral, ity of (TYLENOL) 23:38: Q6HPRN, [place] tablet 650 17 Starting Medic al mg on Thu06/30/22 at 1738, Until Discontinu ed, Routine, Pain (scale 1-3) NaCl 0.9% 2022- No 1000mL at 999 Uni vers (NS) bolus 06-30-06 mL/hr, ity of infusion 22:45: 21:39 1,000 mL, [place] 1,000 mL 00 :00 IV Medical Piggyback, Branch ONCE, 1 dose, On Thu06/30/22 at 1645, STAT ondansetron 0 2022- No 4mg 4 mg, Slow Univers (ZOFRAN 06-30 02-06 IV Push, ity of (PF)) 20:00: 20:43 ONCE, 1 [place] injection 4 00 :00 dose, On Medi inocencio mg 06/30/22 Branch at 1400, Routine magnesium 2021-05 400mg 400 mg, Uni vers oxide 1-26 12-03 Oral, BID, ity of (MAG-OX 02:00: 01:59 14 doses, [place] 400) tablet 00 :00 First dose Me dical 400 mg on Fri Branch 04/18/22 at 2000, Last dose on 04/25/22 at 0800, Routine B12/FA/D3/C 2021-05 Yes Take by Uni vers ALC CIT/ZN 1-25 mouth. ity of AA CHELT 16:34: [place] (VIT 07 Medical S86-SV-TJX Branch D3-CALC CIT-ZN ORAL) magnesium 2021-05 Yes [...] 1-25 mouth. ity of AA CHELT 16:34: [place] (VIT 07 Medical K95-HL-DYW Branch D3-CALC CIT-ZN ORAL) magnesium 2021-05 Yes [...] AA CHELT 16:34: [place] (VIT 07 Medical X68-AL-FHS Branch D3-CALC CIT-ZN ORAL) magnesium 2021-05 Yes [...] 04/17/22 at 2300, Routine acetaminoph 2021-05 Yes [id number] 1000mg Take 2 Univers en 500 mg 06-18 9109 tablets by ity of tablet 00:00: mouth [place] 00 every 6 Medical (six) Branch hours as needed for Pain. acetaminoph 2021-05 Yes [id number] 1000mg Take 2 Univers en 500 mg -25 9109 tablets by ity of tablet 00:00: mouth [place] 00 every 6 Medical (six) Branch hours as needed for Pain. acetaminoph 2021-05 Yes [id number] 1000mg Take 2 Univers en 500 mg -25 9109 tablets by ity of tablet 00:00: mouth [place] 00 every 6 Medical (six) Branch hours as needed for Pain. acetaminoph 2021-05 Yes [id number] 1000mg Take 2 Univers en 500 mg -25 9109 tablets by ity of tablet 00:00: mouth [place] 00 every 6 Medical (six) Branch hours as needed for Pain. acetaminoph 2021-05 Yes [id number] 1000mg Take 2 Univers en 500 mg [...] paroxysmal atrial fibrillati on lisinopriL 2021-05- No [id number] 2.5mg Take 1 Univers 2.5 mg 06-18 9109 tablet by ity of tablet 00:00: 05:59 mouth in [place] 00 :00 the Medical morning Branch for 30 days. metoprolol 2021-05- No [id number] 50mg Take 1 Univers tartrate 50 06-18 9109 tablet by it y of mg tablet 00:00: 05:59 mouth in [place] 00 :00 the Medical morning Branch and 1 tablet in the evening. Do all this for 30 days. furosemide 2021-05- No [id number] 20mg Take 1 Univers 20 mg 06-18 9109 tablet by ity of tablet 00:00: 05:59 mouth in [place] 00 :00 the Medical morning Branch for 30 days. apixaban 2021-05- No 5144 2.5mg Take 0.5 Uni vers (ELIQUIS) 5 1-25 12-26 tablets by i ty of mg tablet 00:00: 05:59 mouth in [place] 00 :00 the Medical morning Branch and 0.5 tablets in the evening. Do all this for 30 days. Indication s: prevention of thromboemb olism in paroxysmal atrial fibrillati on lisinopriL 2021-05- No [id number] 2.5mg Take 1 Univers 2.5 mg 06-18 9109 tablet by ity of tablet 00:00: 05:59 mouth in [place] 00 :00 the Medical morning Branch for 30 days. metoprolol 2021-05- No [id number] 50mg Take 1 Univers tartrate 50 06-18 9109 tablet by it y of mg tablet 00:00: 05:59 mouth in [place] 00 :00 the Medical morning Branch and 1 tablet in the evening. Do all this for 30 days. furosemide 2021-05- No [id number] 20mg Take 1 Univers 20 mg 06-18 [...] paroxysmal atrial fibrillati on lisinopriL 2021-05- No [id number] 2.5mg Take 1 Univers 2.5 mg 06-18 9109 tablet by ity of tablet 00:00: 05:59 mouth in [place] 00 :00 the Medical morning Branch for 30 days. metoprolol 2021-05- No [id number] 50mg Take 1 Univers tartrate 50 06-18 9109 tablet by it y of mg tablet 00:00: 05:59 mouth in [place] 00 :00 the Medical morning Branch and 1 tablet in the evening. Do all this for 30 days. furosemide 2021-05- No [id number] 20mg Take 1 Univers 20 mg 06-18 [...] at 0900, Until Discontinu ed, Routine furosemide 2021-05- No 20mg 20 mg, Univ ers (LASIX) 06-16 Slow IV ity of injection 15:00: 16:43 Push, [place] 20 mg 00 :38 DAILY, Medical First dose Branch on Thu04/16/22 at 0900, Until Discontinu ed, Routine KCL 2021-05- No 40meq 40 mEq, Univers (KLOR-CON 06-16 Oral, ity of M20) tablet 14:15: 14:12 ONCE, 1 [place] 40 mEq 00 :00 dose, On Medical Thu04/16/22 at 0815, Routine enoxaparin 2021-05 Yes 1mg/kg 50 mg Univ ers (LOVENOX) 23 (rounded ity of injection 14:00: from 46.5 [place] 50 mg 00 mg = 1 Medical mg/kg Branch ?46.5 kg), [facility] Q[facility], First dose on Thu04/16/22 at 0800, [...] Until Discontinu ed, Routine, Muscle Spasms cyclobenzap Yes 5mg Take 1 Univ ers [...] Take 60 mg Univers (EVISTA) 60 1-20 11-25 by mouth ity of mg tablet 00:00: [...] No 1{tbl} Take 1 U nivers ydrochlorot 08 11-25 tablet by it y of hiazide 00:00: 00:00 mouth [place] (DIOVAN-HCT 00 :00 daily. Medica l ) 160-12.5 Branch mg per tablet [facility] 2014-05 Yes 90mg Take 90 mg Unive rs THYROID 90 2-22 by mouth ity o f mg tablet 00:00: daily. [place] [facility] 2014-05 Yes 90mg Take 90 mg Unive rs THYROID 90 2-22 by mouth ity o f mg tablet 00:00: daily. [place] [facility] 2014-05 Yes 90mg Take 90 mg Unive rs THYROID 90 2-22 by mouth ity o f mg tablet 00:00: daily. [place] [facility] 2014-05 Yes 90mg Take 90 mg Unive rs THYROID 90 2-22 by mouth ity o f mg tablet 00:00: daily. [place] [facility] 2014-05 Yes 90mg Take 90 mg Unive rs THYROID 90 2-22 by mouth ity o f mg tablet 00:00: daily. [place] [facility] famotidine 2014-05 No Univer s (PEPCID) 40 2-22 11-25 ity of mg tablet 00:00: 00:00 [place] 00 : [facility] Vital Signs Vital Name Observation Time Observation Value Comments Source Heart rate 2022-07-04 14:55:00 104 /min [facility] Body temperature 2022-07-04 14:55:00 36.11 Deepa Univ ersity of [facility] Branch Respiratory rate 2022-07-04 14:55:00 18 /min Univ ersity of [facility] Branch Oxygen saturation in 2022-07-04 14:55:00 85 /min University of Arterial blood by [facility] Pulse oximetry Branch Systolic blood 2022-07-04 14:54:00 127 mm[Hg] Univer sity of pressure [facility] Diastolic blood 2022-07-04 14:54:00 90 mm[Hg] Unive rsity of pressure [facility] Body height 2022-07-01 02:59:00 147.3 cm Universi ty of [facility] Body weight 2022-07-01 02:59:00 46.63 kg Universi ty of [facility] BMI 2022-07-01 02:59:00 21.49 kg/m2 Universi ty of [facility] Body temperature 2022-04-18 21:00:00 36.39 Deepa Univ ersity of [facility] Systolic blood 2022-04-18 18:00:00 132 mm[Hg] Univer sity of pressure [facility] Diastolic blood 2022-04-18 18:00:00 107 mm[Hg] Unive rsity of pressure [facility] Heart rate 2022-04-18 18:00:00 108 /min Universi ty of [facility] Respiratory rate 2022-04-18 18:00:00 18 /min Univ ersity of [facility] Oxygen saturation in 2022-04-18 18:00:00 98 /min University of Arterial blood by [facility] Pulse oximetry Branch Body weight 2022-04-18 10:00:00 46.993 kg Universi ty of [facility] BMI 2022-04-18 10:00:00 18.94 kg/m2 Universi ty of [facility] Body height 2022-04-16 04:08:00 157.5 [facility] Procedure Date / Time Performing Clinician Source Performed COVID-19 (ID NOW RAPID 2022-07-04 16:05:00 Anna Aggarwal [facility] Branch MAGNESIUM 2022-07-02 11:20:00 Dae Godfrey [facility] BASIC METABOLIC PANEL 2022-07-02 11:20:00 [facility] (NA, K, CL, CO2, Medical Branch GLUCOSE, BUN, CREATININE, CA) CBC WITH DIFF 2022-07-02 11:20:00 [facility] 2022-07-01 11:50:[address] [facility] THYROID STIMULATING 2022-07-01 11:50:00 Ame [facility] [address] [facility] BASIC METABOLIC PANEL 2022-07-01 11:50:00 Ame [facility] (NA, K, CL, CO2, [facility] Branch GLUCOSE, BUN, CREATININE, CA) URINALYSIS 2022-06-30 20:53:00 Singer [facility] LACTIC ACID WHOLE BLOOD 2022-06-30 20:42:00 Singer [facility] CT CERVICAL SPINE WO 2022-06-30 20:32:21 Singer [facility] CONTRAST [facility] CT HEAD WO CONTRAST 2022-06-30 20:32:21 Singer [facility] XR PELVIS <3 VW 2022-06-30 20:22:11 Singer [facility] MAGNESIUM 2022-06-30 20:05:[address] [facility] COMP. METABOLIC PANEL 2022-06-30 20:05:00 Singer [facility] ([id number]) Medical Branch ETHANOL 2022-06-30 20:05:00 Singer [facility] CBC WITH DIFF 2022-06-30 20:05:00 Singer [facility] EKG-12 LEAD 2022-06-30 20:04:20 Eddie [facility] COVID-19 (ID NOW RAPID 2022-04-18 18:58:[address] [facility] TESTING) Medical Branch MAGNESIUM 2022-04-18 10:28:00 Keith Lao [facility] BASIC METABOLIC PANEL 2022-04-18 10:28[facility] ([facility], K, CL, CO2, Medical Branch GLUCOSE, BUN, CREATININE, CA) CBC WITH DIFF 2022-04-18 10:28:00 [facility] TROPONIN I 2022-04-17 16:57:00 Monica Hilliard [facility] BASIC METABOLIC PANEL 2022-04-17 16:57:00 [facility] (NA, K, CL, CO2, Medical Branch GLUCOSE, BUN, CREATININE, CA) N-TERMINAL PRO-BNP 2022-04-17 16:57:00 Monica Hilliard [facility] US GALL BLADDER 2022-04-16 22:13:00 [facility] T4 2022-04-16 16:40:00 Monica Hilliard [facility] HB ECG ROUTINE & RHYTHM 2022-04-16 15:54:40 Monica Hilliard [facility] TRANSTHORACIC ECHO (TTE) 2022-04-16 13:44:00 [facility] 2022-04-16 10:30:00 Monica Hilliard [facility] THYROID STIMULATING 2022-04-16 10:30:[facility] BASIC METABOLIC PANEL 2022-04-16 10:30:[facility] ([facility], K, CL, CO2, Medical Branch GLUCOSE, BUN, CREATININE, CA) LIPID PANEL 2022-04-16 10:30:00 Monica Hilliard [facility] ([id number])(TOTAL Medical Branch CHOLESTEROL, TRIGLYCERIDES, HDL) CBC WITH DIFF 2022-04-16 10:30:00 [facility] GLYCOSYLATED HEMOGLOBIN 2022-04-16 10:30:00 Monica Hilliard [facility] (A1C) [facility] FREE T3 2022-04-16 10:30:00 Monica Hilliard [facility] N-TERMINAL PRO-BNP 2022-04-16 06:37:00 RobertmihaidavidAnastacia [facility] Encounters Start End Encounter Admission Attending Care Care Encounter Source Date/Time Date/Time Type Type Clinicians Facility Department ID 2022-07-07 2022-07-07 Transition CYN Hickey [id number] [id number] Univers 00:00:00 00:00:00 of Care Jonatan MIRELES 350.1.13.10 ity of [place]2.686 [place] [id number] [facility] 403 Branch 2022-06-30 2022-07-04 Inpatient [facility] ROLAND [id number] Univers 13:52:00 13:30:00 OMAR [facility] 2022-06-30 2022-07-04 [facility] Anirudh Brunson [facility] 1.2.840.1 [id number] Univers 13:52:00 13:30:00 Encounter Keith Lao 350.1.13.10 ity of Omar Obregon 4.2.7.2.686 [facility] [id number] [facility] 081 Branch 2022-04-23 2022-04-23 Telephone [facility] [id number] Univers 00:00:00 00:00:00 Monica PAREDES 350.1.13.10 ity [place]2.686 [place] PROFESSIO [id number] [facility] 059 [facility] 2022-04-21 2022-04-21 Transition CYN Hickey 1.2.840.114 [id number] Univers 00:00:00 00:00:00 of Care Jonatan MIRELES 350.1.13.10 ity of [place]2.686 [place] [id number] [facility] 403 Branch 2022-04-15 2022-04-18 [facility] ROLAND [id number] Univers 20:08:00 16:15:00 [facility] 2022-04-15 2022-04-18 [facility] Adi Mccloud [facility] 1.2.840.11 [id number] Univers 20:08:00 16:15:00 Encounter Anastacia Etienne 350.1.13.10 [place] 4.2.7.2.686 [facility] [id number] [facility] 080 Branch Results Test Description Test Time Test Comments Results Result Comments Source MAGNESIUM 2022-07-02 12:38:25 Test Item Value Reference Range Interpretation Comme nts MAGNESIUM (test code = 0916105455) 2.1 mg/dL 1.7-2.4 Lab Interpretation (test code = 75935-7) Normal [facility] [place] [facility] MET[facility]OLIC PAN[facility] (NA, K, CL, CO2, GLUCOSE, BUN, CREATININE, CA)2022-07-02 12:38:05 Test Item Value Reference Range Interpretation Comments NA (test code = 138 mmol/L 135-145 7813050455) K (test code = 3.8 mmol/L 3.5-5.0 7206836090) CL (test code = 94 mmol/L 98-108 L 4077641850) CO2 TOTAL (test code = 37 mmol/L 23-31 H 8904733519) AGAP (test code = 7 2-16 3158278393) BUN (test code = 73 mg/dL 7-23 H 2429815062) GLUCOSE (test code = 114 mg/dL 70-110 H 9290928022) CREATININE (test code = 1.26 mg/dL 0.50-1.04 H 4151414237) CALCIUM (test code = 9.1 mg/dL 8.6-10.6 8492104804) eGFR (test code = 40.2 mL/min/1.73m2 4366467729) HEATHER (test code = HEATHER) Association of [...] tests). Lab Interpretation Abnormal (test code = 64786-3) [facility] WITH [id number] 12:21:23 Test Item Value Reference Range Interpretation Comments WBC (test code = 4.64 See_Comment [Automated 9406-2) message] The sy stem which generated this result transmitted reference range : 4.30 - 11.10 10*3/?L. The reference range was not used to interpret this result as normal/abnormal . RBC (test code = 4.29 See_Comment [Automated 032-8) message] The sy stem which generated this [...] RDW-SD (test code = 47.2 fL 39.0-49.9 39950-4) RDW-CV (test code = 14.6 % 12.0-15.5 788-0) PLT (test code = 164 See_Comment L [Automated 777-3) message] The sy stem which generated this result transmitted reference range : 166 - 358 10*3/ ?L. The reference r pamela was not used to interpret this result as normal/abnormal . MPV (test code = 10.8 fL 9.5-12.9 31043-3) NRBC/100 WBC (test 0.0 See_Comment [Automat ed code = 3552997749) message] The system which generated this result transmitted reference range : 0.0 - 10.0 /100 WBCs. The refer ence range was not u sed to interpret th is result as normal/abnormal . NRBC x10^3 (test code See_Comment [Auto mated = 5112537569) message] The s ystem which generated this result transmitted reference range : 10*3/?L. The reference range was not used to interpret this result as normal/abnormal . GRAN MAT (NEUT) % 67.0 % (test code = 770-8) IMM GRAN % (test code 0.40 % = 0151779771) LYMPH % (test code = 20.5 % 736-9) MONO % (test code = 9.5 % 5905-5) EOS % (test code = 2.2 % 713-8) BASO % (test code = 0.4 % 706-2) GRAN MAT x10^3(ANC) 3.11 10*3/uL 1.88-7.09 (test code = 5357701923) IMM GRAN x10^3 (test 0.00-0.06 code = 1753290175) LYMPH x10^3 (test code 0.95 10*3/uL 1.32-3.29 L = 731-0) MONO x10^3 (test code 0.44 10*3/uL 0.33-0.92 = 742-7) EOS x10^3 (test code = 0.10 10*3/uL 0.03-0.39 711-2) BASO x10^3 (test code 0.01-0.07 = 704-7) Lab Interpretation Abnormal (test code = 97964-9) [facility]15[facility]36 Test Item Value Reference Range Interpretation Comments MAGNESIUM (test code = 1.7 mg/dL 1.7-2.4 Sligh t hemolysis 9674994239) Lab Interpretation (test Normal code = 84890-0) [facility] [place] [facility]2023-[facility]-06 20:57:48 ALCOHOL<10mg/dL06/30/2022 2:57 PM [facility]<10 [id number] Toxic>100 Depression of [employer]>400 Fatalities ReportedUnB[facility]anoCBC WITH [id number] 20:51:58 Test Item Value Reference Range Interpretation Comments WBC (test code = 5.57 See_Comment [Automated 2333-2) message] The sy stem which generated this result transmitted reference range : 4.30 - 11.10 10*3/?L. The reference range was not used to interpret this result as normal/abnormal . RBC (test code = 4.27 See_Comment [Automated 681-8) message] The sy stem which generated this [...] RDW-SD (test code = 46.2 fL 39.0-49.9 44481-8) RDW-CV (test code = 14.6 % 12.0-15.5 788-0) PLT (test code = 164 See_Comment L [Automated 257-3) message] The sy stem which generated this result transmitted reference range : 166 - 358 10*3/ ?L. The reference r pamela was not used to interpret this result as normal/abnormal . MPV (test code = 10.3 fL 9.5-12.9 36653-4) NRBC/100 WBC (test 0.0 See_Comment [Automat ed code = 3727836474) message] The system which generated this result transmitted reference range : 0.0 - 10.0 /100 WBCs. The refer ence range was not u sed to interpret th is result as normal/abnormal . NRBC x10^3 (test code See_Comment [Auto mated = 2330498648) message] The s ystem which generated this result transmitted reference range : 10*3/?L. The reference range was not used to interpret this result as normal/abnormal . GRAN MAT (NEUT) % 60.0 % (test code = 770-8) IMM GRAN % (test code 0.70 % = 5601212417) LYMPH % (test code = 25.9 % 736-9) MONO % (test code = 10.6 % 5905-5) EOS % (test code = 2.3 % 713-8) BASO % (test code = 0.5 % 706-2) GRAN MAT x10^3(ANC) 3.34 10*3/uL 1.88-7.09 (test code = 8886773515) IMM GRAN x10^3 (test 0.04 10*3/uL 0.00-0.06 code = 5811576192) LYMPH x10^3 (test code 1.44 10*3/uL 1.32-3.29 = 731-0) MONO x10^3 (test code 0.59 10*3/uL 0.33-0.92 = 742-7) EOS x10^3 (test code = 0.13 10*3/uL 0.03-0.39 711-2) BASO x10^3 (test code 0.03 10*3/uL 0.01-0.07 = 704-7) Lab Interpretation Abnormal (test code = 14359-6) [facility] METABOLIC PANEL (98600)2022-06-30 20:28:14 Test Item Value Reference Range Interpretation Comments NA (test code = 131 mmol/L 135-145 L 0466056716) K (test code = 3.4 mmol/L 3.5-5.0 L 7885015843) CL (test code = 84 mmol/L 98-108 L [id number]) CO2 TOTAL (test code = 35 mmol/L 23-31 H 0151570637) AGAP (test code = 12 2-16 3320924169) BUN (test code = 109 mg/dL 7-23 H 9187836260) GLUCOSE (test code = 109 mg/dL 70-110 1236921550) CREATININE (test code = 1.92 mg/dL 0.50-1.04 H 2267319336) TOTAL BILI (test code = 0.8 mg/dL 0.1-1.3 0949495343) CALCIUM (test code = 8.6 mg/dL 8.6-10.6 1264514354) T PROTEIN (test code = 7.2 g/dL 6.3-8.2 7628532772) ALBUMIN (test code = 4.2 g/dL 3.5-5.0 8979425752) ALK PHOS (test code = 108 U/L 34-122 0963314347) ALTv (test code = 17 U/L 5-35 1742-6) AST(SGOT) (test code = 31 U/L 13-40 0615843343) eGFR (test code = 24.7 mL/min/1.73m2 2114084549) HEATHER (test code = HEATHER) Association of [...] tests). Lab Interpretation Abnormal (test code = 84090-2) [facility]2022-04-16 22:50:07 Test Item Value Reference Range Interpretation Comments Height (test code = in 3211974972) Weight (test code = lbs 8389434479) Systolic BP (test code = mmHg 8292792961) Diastolic BP (test code mmHg = 4541620633) Heart Rate (test code = bpm 4724507971) BSA (test code = 1.44 m2 7788901243) Ao root diam (test code 3.20 cm = 6616565051) Aortic root (test code = 3.2 cm 8839645475) Ao root annulus (test 3.2 cm code = 6760853163) LVOT diameter (test code 1.80 cm = 9796325624) LVOT area (test code = 2.50 cm2 6879963037) LVIDD (test code = 4.40 cm 7983419438) Left Ventricular End 86.1 mL Diastolic Volume by Teichholz Method (test code = 5771668) IVS (test code = 0.96 cm 2997887579) Interventricular Septum 0.96 cm Diastolic Thickness by 2D (test code = 4565499) LVPWD (test code = 0.96 cm 7007380146) PW (test code = 0.96 cm 0.6-1.6 1805169612) EF(Teich) (test code = 43.30 % 2243649815) LVIDS (test code = 3.40 cm 4912837451) Left Ventricular End 48.8 mL Systolic Volume by Teichholz Method (test code = 5364753) FS (test code = 21 % 2110141191) EF - 2D (test code = 43.30 % 39760340) LA size (test code = 3.9 cm 5289694601) TR Peak Jamil (test code = 256.8 cm/s 7085777321) Triscuspid Valve mmHg Regurgitation Peak Gradient (test code = 3329153881) Pulmonic Regurgitant End 145.1 cm/s Max Velocity (test code = 2395465775) LAV(MOD-sp4) (test code 125.80 mL = 0917466272) E wave decelartion time 0.17 s (test code = 3696411739) MV stenosis pressure 1/2 51.9 ms time (test code = 4862398960) MV Peak E Jamil (test code 153.6 cm/s = 8444484705) MV Peak A Jamil (test code 15.9 cm/s = 2337360581) E/A ratio (test code = ratio 0052391623) MR max PG (test code = 97.60 mm[Hg] 5076434246) MR max jamil (test code = 493.00 cm/s 7301546896) Mr max jamil (test code = 493.0 m/s 8863409078) MV Prop V (test code = 31.90 cm/s 2990151572) MV E/e' septal (test 9.4 cm/s code = 6776104992) Tapse (test code = 1.22 cm 1502361692) LVOT stroke volume (test 51.40 cm3 code = 5475876013) LVOT peak jamil (test code 106.1 cm/s = 9935797810) LVOT mn grad (test code mmHg = 9879349168) AV LVOT peak gradient mmHg (test code = 4863060158) LVOT peak VTI (test code 20.2 cm = 9477065538) LV V1 mean (test code = 69.40 cm/s 1661526236) Aortic valve mean 105.6 cm/s velocity (test code = 4702153766) Ao peak jamil (test code = 152.4 cm/s 7158357330) Ao VTI (test code = 27.5 cm 9350622418) AV area by cont VTI 1.9 cm2 (test code = 6720437843) AV area peak jamil (test 1.8 cm2 code = 4996494526) Ao max PG (test code = 9.30 mm[Hg] 5204623138) AV peak gradient (test mmHg code = 7103650615) AV valve area (test code 1.87 cm2 = 0293857228) AV mean gradient (test mmHg code = 8376792952) AV regurgitation 678.7 ms pressure 1/2 time (test code = 6572432192) AI dec slope (test code 193.60 cm/s2 = 6071954513) AI max jamil (test code = 448.60 cm/s 9656741591) AI max PG (test code = 80.50 mm[Hg] 2536696795) Radiology Study observation (narrative) (test code = 63818-9) HEATHER (test code = HEATHER) ?Left?Ventricle: Left [...] 2D, color flow Doppler and spectral Doppler. [facility] [id number] 18:15:39 Test Item Value Reference Range Interpretation Comments FREE T4 (test code = See_Comment [Autom ated message] 4437177303) The system Fio generated this result transmitted ref erence range: 0.78 - 2 .20 ng/dL:. The ref erence range was not u sed to interpret this result as normal/abnor mal. Lab Interpretation (test Normal code = 02006-4) [facility]"
[2022-07-31 20:26] LABS: Protime INR 1.74
[2022-07-31 20:30] LABS: Absolute Lymphocytes (CBC) 0.8 K/uL (0.7-4.9); Hematocrit 37.9 % (36.0-45.0); Lymphocytes % 13.3 % (15.3-44.8); MCV 95.5 fL (80-100); MPV 8.2 fL (7.6-11.3); RBC Red Blood Cell Count 3.97 M/uL (3.86-4.86)
--- NOTE | 2022-07-31 20:34 | RAD REPORT ---
EXAM DESCRIPTION: RAD - Chest Single View - 07/31/2022 8:27 pm CLINICAL HISTORY: COUGH Chest pain. COMPARISON: Chest Single View dated 07/30/2022; Chest Single View dated 07/16/2022 FINDINGS: Portable technique limits examination quality. Mild to moderate bilateral pulmonary opacities likely represent pulmonary edema. The heart is moderat lianne enlarged in size. Tortuous thoracic aorta. IMPRESSION: Mild CHF.
[2022-07-31] MEDS ORDERED: NA CHLORIDE 0.9% 500 ML ONE (20:38)
[2022-07-31] MEDS ORDERED: NA CHLORIDE 0.9% 0 ML ONE (20:38)
[2022-07-31] MEDS ORDERED: FAMOTIDINE 20 MG/2 ML VIAL IV ONE (20:38)
[2022-07-31] MEDS ORDERED: ACETAMINOPHEN 650MG/RECT SUPP PR ONE (20:38)
[2022-07-31 20:48] LABS: Albumin 3.2 g/dL (3.4-5.0); Bilirubin Direct 0.7 mg/dL (0-0.2); Bilirubin Total 1.3 mg/dL (0.2-1.0); Magnesium 2.2 mg/dL (1.6-2.4); Potassium 3.5 mmol/L (3.5-5.1); Protein, Total 6.2 g/dL (6.4-8.2); Thyroid Stimulating Hormone 2.75 uIU/mL (0.358-3.740)
--- NOTE | 2022-07-31 22:00 | RAD REPORT ---
EXAM DESCRIPTION: CT - Head C Spine Cap Wo Con - 07/31/2022 9:51 pm CLINICAL HISTORY: Trauma, head and neck injury. Chest, abdomen and pelvis pain. Declining state;Confused;Pain COMPARISON: No comparisons TECHNIQUE: CT head without contrast. CT cervical spine without contrast with coronal and sagittal reformatted images. CT chest, abdomen and pelvis without contrast with coronal and sagittal reformatted images of the spi ne. All CT scans are performed using dose optimization technique as appropriate and may include automated exposure control or mA/KV adjustment according to patient size. FINDINGS: CT HEAD WITHOUT CONTRAST: No intracranial hemorrhage, hydrocephalus or extra-axial fluid collection. Mild generalized brain atr ophy is present with moderate periventricular and deep white matter chronic microvascular ischemic ch anges. No areas of brain edema or midline shift. The paranasal sinuses and mastoids are essentially clear. The calvarium is intact. CT CERVICAL SPINE WITHOUT CONTRAST: No fracture or subluxation. Moderate mid lower lower cervical degenerative changes. The prevertebral soft tissues are normal in thickness. CT CHEST, ABDOMEN, PELVIS WITHOUT CONTRAST: NOTE: Lack of contrast is a significant limitation in the assessment of trauma related findings. Spec ifically, solid organ, vascular and bowel evaluation is significantly limited. Mild atelectasis is present in both lung bases.Small to moderate right pleural effusion. Trace left p leural effusion. Cardiac size is mildly enlarged. No evidence of intra-abdominal visceral injury, free fluid or free air is seen within the above detai led limitations. No bowel obstruction or free fluid. Several gallstones are present gallbladder. No concerning pelvic findings. Moderate retained stool throughout the colon. No fractures. Moderate lumbar degenerative changes. IMPRESSION: Small to moderate right pleural effusion. Cholelithiasis.
[2022-07-31] MEDS ORDERED: NITROGLYCERIN 1 GM PKT TD ONE (22:20)
[2022-07-31] MEDS ORDERED: FUROSEMIDE 40 MG/4 ML VIAL ONE (22:20)
[2022-07-31] MEDS ORDERED: DIGOXIN 0.25 MG/ML AMP ONE (22:20)
[2022-07-31] MEDS ORDERED: Levofloxacin500mg IV 500 MG/100 ML BAG IV ONE (22:21)
[2022-07-31] MEDS ORDERED: NS KCL 20MEQ 1,000 ML IV ONE (22:21)
[2022-07-31] MEDS ORDERED: NA CHLORIDE 0.9% 100 ML ONE (22:21)
[2022-07-31] MEDS ORDERED: METOPROLOL TARTRATE 5 MG/5 ML INJ IV ONE (22:21)
[2022-07-31] MEDS ORDERED: CEFEPIME 1 GM/VIAL ONE (22:21)
[2022-07-31 22:29] LABS: SARS-COV-2 RT PCR NEGATIVE (NEGATIVE)
[2022-07-31 22:47] LABS: Urine Blood Trace-lysed (Negative); Urine Glucose Negative (Negative); Urine Protein Trace (Negative); Urine pH 5.5 (5.0-7.0)
--- NOTE | 2022-08-01 00:17 | P.HP ---
Certification for Inpatient Patient admitted to: Inpatient With expected LOS: >2 Midnights Patient will require the following post-hospital care: None Practitioner: I am a practitioner with admitting privileges, knowledge of patient current condition, hospital course, and medical plan of care. Services: Services provided to patient in accordance with Admission requirements found in Title 42 Section 412.3 of the Code of Federal Regulations Patient History Date of Service: 08/01/22 Primary Care Provider: Kandice Reason for admission: CHF Exacerbation, AMS, Afib RVR History of Present Illness: Patient is an 87 year old female with past medical history of dementia, afib, hypertension, hyperlipidemia, hypothyroidism, and recent diagnosis of CHF who presented to the ED via EMS from alf with fever, altered mental status, and failure to thrive. She was found to febrile and in afib RVR. Patient is oriented x 0 and cannot provide any history. half-way did not provide any paperwork. Labs today are significant for chloride 96, CO2 34, BUN 47, creatinine 1.5, T. bili 1.3, AST 104, ALT 103, BNP 21,000. Urine negative for UTI. Covid/flu negative. panCT showed " Small to moderate right pleural effusion and Cholelithiasis." Abdominal US showed "Cholelithiasis without secondary signs to suggest acute cholecystitis." In the emergency department, she received 5 mg IV metoprolol and 0.5 mg digoxin which did improve her rate. She additionally received cefepime, levaquin, tylenol and lasix. Patient is admitted for further management. Allergies strawberry Allergy (Verified 08/01/22 01:30) Anaphylaxis Home medications list reviewed: Yes - Past Medical/Surgical History Diabetic: No -: Atrial Fibrillation -: Hypertension -: Dementia -: Hyperlipidemia -: Hypothyroidism Past Surgical History: Unable to obtain Psychosocial/ Personal History: Patient lives at alf. - Family History Family History: Reviewed- Non-Contributory - Social History Smoking Status: Unknown if ever smoked Place of Residence: Jail Review of Systems is unable to be obtained Physical Examination - Vital Signs Temperature: 98.1 F Blood Pressure: 190/92 Pulse: 78 Respirations: 18 Pulse Ox (%): 97 (2L NC) - Physical Exam General: Confused HEENT: Atraumatic, EOMI, Sclerae nonicteric Neck: Supple, 2+ carotid pulse no bruit Respiratory: Clear to auscultation bilaterally, Normal air movement Cardiovascular: Irregular heart rate/rhythm Gastrointestinal: Normal bowel sounds, No tenderness Musculoskeletal: No tenderness Integumentary: No rashes Neurological: Abnormal affect, Dementia Urinary: Betancur catheter - Studies Laboratory Data (last 24 hrs) 07/31/22 20:00: PT 19.1 H, INR 1.74 07/31/22 20:00: WBC 6.30, Hgb 12.3, Hct 37.9, Plt Count 175 07/31/22 20:00: Sodium 136, Potassium 3.5 D, BUN 47 H, Creatinine 1.50 H, Glucose 90, Magnesium 2.2, Total Bilirubin 1.3 H, AST 104 H, ALT 103 H, Alkaline Phosphatase 56 Assessment and Plan - Problems (Diagnosis) (1) Congestive heart failure Current Visit: Yes Status: Acute Qualifiers: Heart failure type: unspecified Heart failure chronicity: acute Qualified Code(s): I50.9 - Heart failure, unspecified (2) Atrial fibrillation Current Visit: Yes Status: Chronic Qualifiers: Atrial fibrillation type: paroxysmal Qualified Code(s): I48.0 - Paroxysmal atrial fibrillation (3) Altered mental status Current Visit: Yes Status: Acute Qualifiers: Altered mental status type: unspecified Qualified Code(s): R41.82 - Altered mental status, unspecified (4) Hypertension Current Visit: Yes Status: Chronic Qualifiers: Hypertension type: primary hypertension Qualified Code(s): I10 - Essential (primary) hypertension (5) Hyperlipidemia Current Visit: Yes Status: Chronic Qualifiers: Hyperlipidemia type: unspecified Qualified Code(s): E78.5 - Hyperlipidemia, unspecified (6) Hypothyroidism Current Visit: Yes Status: Chronic Qualifiers: Hypothyroidism type: unspecified Qualified Code(s): E03.9 - Hypothyroidism, unspecified - Plan Patient is admitted for further management of CHF exacerbation, afib RVR, and AMS. Acute Congestive Heart Failure: half-way states that she was recently diagnosed [place] [address] today with small to moderate right pleural effusion noted on CT. Will consult cardiology and obtain echocardiogram to assess EF. Received 40 mg IV lasix in ED. Betancur in place. Monitor intake and output. Fluid restriction. Daily weights. Atrial Fibrillation: Known history. Was initially RVR but rate is now < 100 after IV metoprolol and digoxin. Patient does not appear to be on chronic anticoagulation. Lovenox ordered. Monitor on telemetry. Cardiology consulted. Encephalopathy: patient has history of dementia. unclear what her baseline is. Nothing on workup to explain why she would be more altered. Received cefepime & levaquin in the ED. No source of infection identified. Blood & urine cultures obtained. Will hold off on additional. Cholelithiasis with elevated LFTs: Per chart review, LFTs have been slowly rising. Cause is unclear. Cholelithiasis noted on abdominal ultrasound without evidence of cholecystitis or choledocholithiasis. Will recheck LFTs in the morning. Consider MRCP if they continue to rise. Hypertension/Hypothyroidism/Hyperlipidemia: Reconcile and continue home medications. Confirmed with alf that patient is a full code. Discharge Plan: Jail Plan to discharge in: Greater than 2 days - Advance Directives Does patient have a Living Will: No Does patient have a Durable POA for Healthcare: No - Code Status/Comfort Care Code Status Assessed: Yes Code Status: Full Code Physician Review: Patient Assessed, Agree with Above Assessment and Plan Critical Care: No Time Spent Managing Pts Care (In Minutes): 50
[2022-08-01] MEDS ORDERED: IPRATROPIUM BROM 0.5MG/2.5ML NEB PRN (01:31)
[2022-08-01] MEDS ORDERED: ALBUTEROL 2.5 MG/3 ML NEB SOL NEB PRN ×2 (01:31→14:00)
[2022-08-01] MEDS ORDERED: ONDANSETRON 4 MG/2 ML VIAL IV PRN (01:31)
[2022-08-01] MEDS ORDERED: METOPROLOL TARTRATE 5 MG/5 ML INJ IV STA (02:04)
[2022-08-01] MEDS ORDERED: ACETAMINOPHEN 650MG/RECT SUPP PR PRN (03:00)
[2022-08-01 06:01] LABS: Absolute Lymphocytes (CBC) 0.6 K/uL (0.7-4.9); Hematocrit 43.4 % (36.0-45.0); MCV 95.5 fL (80-100); MPV 7.7 fL (7.6-11.3); RBC Red Blood Cell Count 4.54 M/uL (3.86-4.86)
[2022-08-01 06:25] LABS: Albumin 3.5 g/dL (3.4-5.0); Bilirubin Total 1.7 mg/dL (0.2-1.0); Magnesium 2.2 mg/dL (1.6-2.4); Phosphorus 3.1 mg/dL (2.5-4.9); Potassium 3.8 mmol/L (3.5-5.1); Protein, Total 7.2 g/dL (6.4-8.2)
[2022-08-01] MEDS ORDERED: POTASSIUM 25 MEQ EFFERV TAB PO ONE (09:00)
[2022-08-01] MEDS: ENOXAPARIN 30 MG/0.3 ML SQ SCH (09:13)
[2022-08-01] MEDS: LABETALOL 20 MG/4ML SYRINGE IV PRN ×2 (09:14→13:10)
--- NOTE | 2022-08-01 12:12 | RAD REPORT ---
EXAM DESCRIPTION: US - Abdomen Exam Limited - 07/31/2022 11:23 pm CLINICAL HISTORY: Cholelithiasis, elevated lft TECHNIQUE: Real-time ultrasound of the right upper quadrant with image documentation. COMPARISON: No relevant prior studies available. FINDINGS: Liver: The liver measures 11.9 cm in length. Slightly increased echogenicity compatibl e with steatosis. Gallbladder: Large gallstone. No gallbladder wall thickening or pericholecystic fluid. Common bile duct: Unremarkable as visualized. No stones. No dilation. Pleural space: Small to moderate right pleural effusion. IMPRESSION: Cholelithiasis without secondary signs to suggest acute cholecystitis. Electronically signed by: Jared Zarco MD 07/31/2022 11:57 PM BUREAU DIRECTOR Due to temporary technical issues with the PACS/Fluency reporting system, reports are being signed by the in house radiologists without review as a courtesy to insure prompt reporting. The interpreting radiologist is fully responsible for the content of the report.
--- NOTE | 2022-08-01 16:09 | P.PN ---
Date of Service: 08/01/22 Patient is not able to give any subjective complaint. She is currently in atrial fibrillation and requiring 2.5 L of oxygen by nasal cannula. Seen by cardiology who recommended amiodarone. Patient started on amiodarone 200 mg twice daily. Renal function is close to baseline. Not sure how much dehydration is playing a part in her rapid heart rate. We will check uric acid. Blood pressure control Feeding as tolerated. No Lasix for now.
--- NOTE | 2022-08-01 16:13 | CON ---
Date of Consultation: 08/01/2022 Reason For Consultation: Heart failure exacerbation and atrial fibrillation with rapid ventricular r esponse. History Of Present Illness: An 87-year-old female with history of dementia, atrial fibrillation, hyp ertension, dyslipidemia, and diastolic heart failure, presented with altered mental status, had some fever at the care home. She was found to be in atrial fibrillation with rapid ventricular respons e and appeared to be slightly fluid overloaded. Evaluated by bedside. She is a very poor historian, could not get a history from her, but her heart rate is still running fast. Past Medical History: As outlined above in HPI. Medications: Refer to reconciliation sheet for detailed list. Allergies: NO KNOWN DRUG ALLERGIES. Family History: No premature coronary artery disease or cancer. Social History: She does not smoke or drink. Does not use any drugs. Review of Systems: All systems reviewed and they were negative except what mentioned in HPI. Physical Examination: Vital Signs: Reviewed. Head and Neck: Pupils are equal, reactive to light. Intact eye movements. No JVD. No cervical lym phadenopathy. Neck is supple. Thyroid is not enlarged. Lungs: Decreased breathing sounds with crackles in both bases. No accessory muscle use or muscle re traction. Heart: Irregularly irregular. No extra sounds. Abdomen: Soft, nontender. Bowel sounds positive. No organomegaly. No masses or hernia. No rigidi ty or rebound. Extremities: No clubbing or cyanosis. Intact pulses. Skin: No rash. Neurologic: Alert, awake, but confusion. No acute focal deficits appreciated. Investigations: Troponins are negative. NT-proBNP was 21,774. BUN is 40, creatinine 1.42, and hemo globin is 14.1. The chest x-ray with mild CHF. Assessment And Recommendations: 1.Acute on chronic congestive heart failure exacerbation. We will evaluate her last echo to assess the heart function and agree with gentle diuresis. Monitor BUN, creatinine, electrolytes. 2.Atrial fibrillation with rapid ventricular response. Recommend IV amiodarone load 150 mg over 10 minutes, then 1 mg per minute for 6 minutes, then 0.5 mg per minute for 16 minutes, after which she w ill be switched to oral 200 mg twice a day. Not a candidate for anticoagulation due to her age and a dvanced dementia. 3.Hypertension. Introduce metoprolol 25 mg twice a day and baby aspirin. SR/MODL Voice ID: [id number] Report ID: [id number]
[2022-08-01] MEDS: AMIODARONE HCL 200 MG TAB PO SCH (20:59)
[2022-08-02] MEDS: LABETALOL 20 MG/4ML SYRINGE IV PRN (00:33)
[2022-08-02 03:51] LABS: Absolute Lymphocytes (CBC) 0.7 K/uL (0.7-4.9); Hematocrit 38.5 % (36.0-45.0); Lymphocytes % 9.7 % (15.3-44.8); MCV 95.2 fL (80-100); MPV 7.9 fL (7.6-11.3); RBC Red Blood Cell Count 4.04 M/uL (3.86-4.86)
[2022-08-02 04:06] LABS: Albumin 2.9 g/dL (3.4-5.0); Bilirubin Total 1.5 mg/dL (0.2-1.0); Phosphorus 2.3 mg/dL (2.5-4.9); Potassium 3.1 mmol/L (3.5-5.1); Protein, Total 5.8 g/dL (6.4-8.2)
[2022-08-02] MEDS ORDERED: POTASSIUM 25 MEQ EFFERV TAB PO ONE (06:00)
[2022-08-02] MEDS: POTASS/SODIUM PHOSPHATE 1 PKT POWD.PACK PO SCH ×3 (06:00→09:09)
[2022-08-02] MEDS: ENOXAPARIN 30 MG/0.3 ML SQ SCH (08:21)
[2022-08-02] MEDS: AMIODARONE HCL 200 MG TAB PO SCH ×2 (09:08→20:09)
--- NOTE | 2022-08-02 13:41 | P.PN ---
Subjective Date of Service: 08/02/22 Primary Care Provider: Kandice Chief Complaint: CHF Exacerbation, AMS, Afib RVR Patient is awake, has advanced dementia and not able to provide any subjective complaint. Nursing staff report patient is barely eating. Heart rate has improved. Physical Examination - Vital Signs Temperature: 98.3 F Blood Pressure: 133/63 Pulse: 83 Respirations: 18 Pulse Ox (%): 92 - Studies Microbiology Data (last 24 hrs): 07/31/22 22:43 Clean Catch Urine [place] Count - Final No growth. 07/31/22 22:43 Clean Catch Urine - Final No growth. Assessment And Plan - Current Problems (Diagnosis) (1) Acute on chronic diastolic heart failure Current Visit: Yes Status: Acute (2) Atrial fibrillation Current Visit: Yes Status: Chronic Qualifiers: Atrial fibrillation type: paroxysmal Qualified Code(s): I48.0 - Paroxysmal atrial fibrillation (3) Hypothyroidism Current Visit: Yes Status: Chronic Qualifiers: Hypothyroidism type: unspecified Qualified Code(s): E03.9 - Hypothyroidism, unspecified (4) Advanced dementia Current Visit: Yes Status: Acute - Plan Physical Exam General: Confused. NAD Neck: Supple, no elevated JVD. Respiratory: Clear to auscultation bilaterally, Normal air movement Cardiovascular: Irregular heart rate/rhythm, normal rate. Gastrointestinal: Normal bowel sounds, No tenderness Musculoskeletal: No tenderness Integumentary: No rashes Neurological: Dementia Urinary: Betancur catheter. Plan: Patient with poor oral intake. She is saturating at 100% on 2 L oxygen by nasal cannula. Wean off oxygen Discontinue Lasix due to poor oral intake to avoid dehydration. Cardiology input appreciated. Continue amiodarone for A-fib. Patient considered not a candidate for anticoagulation given her advanced age and advanced dementia. Labetalol as needed for BP spikes. KATIE resolved Encourage feeding. Feed with assistance.
[2022-08-02] MEDS ORDERED: POTASSIUM PHOS IN 0.9 % NACL 15 MMOL/250 ML BAG IV ONE (14:30)
[2022-08-03] MEDS: LABETALOL 20 MG/4ML SYRINGE IV PRN ×2 (01:00→16:42)
[2022-08-03] MEDS ORDERED: METOPROLOL TARTRATE 5 MG/5 ML INJ IV STA (04:47)
[2022-08-03 06:17] LABS: Absolute Lymphocytes (CBC) 0.7 K/uL (0.7-4.9); Hematocrit 39.6 % (36.0-45.0); Lymphocytes % 10.9 % (15.3-44.8); MCV 96.5 fL (80-100); MPV 7.8 fL (7.6-11.3)
[2022-08-03 06:36] LABS: Albumin 2.9 g/dL (3.4-5.0); Bilirubin Total 1.6 mg/dL (0.2-1.0); Potassium 3.4 mmol/L (3.5-5.1); Protein, Total 5.8 g/dL (6.4-8.2)
[2022-08-03] MEDS: ENOXAPARIN 30 MG/0.3 ML SQ SCH (09:05)
[2022-08-03] MEDS: AMIODARONE HCL 200 MG TAB PO SCH ×2 (09:06→20:46)
[2022-08-03] MEDS ORDERED: KCL 20 MEQ/100 mL IVPB 20 MEQ/100 ML BAG IV ONE (10:00)
[2022-08-03] MEDS ORDERED: NA CHLORIDE 0.9% 250 ML ONE (10:19)
--- NOTE | 2022-08-03 16:01 | P.PN ---
Subjective Date of Service: 08/03/22 Primary Care Provider: Kandice Chief Complaint: CHF Exacerbation, AMS, Afib RVR Patient is awake, has advanced dementia and not able to provide any subjective complaint. She is more interactive today. Nursing staff reports poor oral intake. No recorded fever. No agitation. Patient developed a brief rapid A-fib last night. Physical Examination - Vital Signs Temperature: 98.4 F Blood Pressure: 155/78 Pulse: 110 Respirations: 18 Pulse Ox (%): 98 Assessment And Plan - Current Problems (Diagnosis) (1) Acute on chronic diastolic heart failure Current Visit: Yes Status: Acute (2) Atrial fibrillation Current Visit: Yes Status: Chronic Qualifiers: Atrial fibrillation type: paroxysmal Qualified Code(s): I48.0 - Paroxysmal atrial fibrillation (3) Hypothyroidism Current Visit: Yes Status: Chronic Qualifiers: Hypothyroidism type: unspecified Qualified Code(s): E03.9 - Hypothyroidism, unspecified (4) Advanced dementia Current Visit: Yes Status: Acute - Plan Physical Exam General: Confused. NAD Neck: Supple, no elevated JVD. Respiratory: Clear to auscultation bilaterally, Normal air movement Cardiovascular: Irregular heart rate/rhythm, normal rate. Gastrointestinal: Normal bowel sounds, No tenderness Musculoskeletal: No tenderness Integumentary: No rashes Neurological: Dementia Urinary: Betancur catheter. Plan: Patient with poor oral intake. Uric acid level is elevated suggesting dehydration. Echocardiogram is pending Lasix discontinued. Cardiology is following Continue amiodarone for A-fib. Patient considered not a candidate for anticoagulation given her advanced age and advanced dementia. Labetalol as needed for BP spikes. KATIE resolved Attempt to insert NG tube for feeding was unsuccessful today. Encourage feeding and oral rehydration. Feed with assistance. Increase activity as tolerated.
--- NOTE | 2022-08-03 16:28 | RAD REPORT ---
EXAM DESCRIPTION: RAD - Chest Single View - 08/03/2022 4:19 pm CLINICAL HISTORY: Bilateral infiltrates Chest pain. COMPARISON: Chest Single View dated 07/31/2022; Chest Single View dated 07/30/2022; Chest Single View da shmuel 07/16/2022 FINDINGS: Portable technique limits examination quality. Mild bilateral pulmonary opacities, greater on the right. The findings appear mildly improved since p rior study. The heart is moderately enlarged. No displaced fractures. IMPRESSION: Mild CHF, mildly improved since prior study.
[2022-08-04 02:44] VITALS: BMI 22.1
[2022-08-04] MEDS ORDERED: METOPROLOL TARTRATE 5 MG/5 ML INJ IV STA (03:00)
[2022-08-04 05:33] LABS: Hematocrit 37.9 % (36.0-45.0); MCV 96.1 fL (80-100); RBC Red Blood Cell Count 3.94 M/uL (3.86-4.86)
[2022-08-04 05:34] LABS: Absolute Lymphocytes (CBC) 0.7 K/uL (0.7-4.9); MPV 7.2 fL (7.6-11.3)
[2022-08-04 05:56] LABS: Albumin 2.8 g/dL (3.4-5.0); Bilirubin Total 2.1 mg/dL (0.2-1.0); Potassium 3.4 mmol/L (3.5-5.1); Protein, Total 5.6 g/dL (6.4-8.2)
[2022-08-04 06:52] LABS: Phosphorus 2.1 mg/dL (2.5-4.9)
[2022-08-04] MEDS: ENOXAPARIN 30 MG/0.3 ML SQ SCH (09:33)
[2022-08-04] MEDS: KCL 20 MEQ/100 mL IVPB 20 MEQ/100 ML BAG IV SCH ×2 (09:34→11:35)
[2022-08-04] MEDS: AMIODARONE HCL 200 MG TAB PO SCH ×2 (09:34→20:06)
[2022-08-04] MEDS ORDERED: NA CHLORIDE 0.9% 250 ML ONE (09:35)
[2022-08-04] MEDS: LABETALOL 20 MG/4ML SYRINGE IV PRN (12:58)
--- NOTE | 2022-08-04 13:15 | EKG ---
Test Date: 2022-07-31 Test Time: 20:48:42 Lead Injection Mold Technician: MEASUREMENT RESULTS: Intervals: Rate: 118 [place]: QRSD: 70 QT: 340 QTc: 476 [place]: P: [place]: QRS: 78 T: -75 INTERPRETIVE STATEMENTS: Atrial fibrillation with rapid ventricular response Low voltage QRS Cannot rule out Anterior infarct, age undetermined Abnormal ECG Compared to ECG 07/30/2022 17:24:24 Myocardial infarct finding now present Right-axis deviation no longer present T-wave abnormality no longer present Electronically Signed On 08-04-22 13:08:47 CDT by Stephen Ivey
--- NOTE | 2022-08-04 13:25 | P.PN ---
Subjective Date of Service: 08/04/22 Primary Care Provider: Kandice Chief Complaint: CHF Exacerbation, AMS, Afib RVR Patient is awake, nonverbal, only groans. Poor oral intake. No recorded fever. No agitation. Physical Examination - Vital Signs Temperature: 98.3 F Blood Pressure: 179/73 Pulse: 88 Respirations: 18 Pulse Ox (%): 95 Assessment And Plan - Current Problems (Diagnosis) (1) Acute on chronic diastolic heart failure Current Visit: Yes Status: Acute (2) Atrial fibrillation Current Visit: Yes Status: Chronic Qualifiers: Atrial fibrillation type: paroxysmal Qualified Code(s): I48.0 - Paroxysmal atrial fibrillation (3) Hypothyroidism Current Visit: Yes Status: Chronic Qualifiers: Hypothyroidism type: unspecified Qualified Code(s): E03.9 - Hypothyroidism, unspecified (4) Advanced dementia Current Visit: Yes Status: Acute (5) Hypertension Current Visit: Yes Status: Chronic Qualifiers: Hypertension type: primary hypertension Qualified Code(s): I10 - Essential (primary) hypertension - Plan Physical Exam General: Confused. NAD Neck: Supple, no elevated JVD. Respiratory: Clear to auscultation bilaterally, Normal air movement Cardiovascular: Irregular heart rate/rhythm, normal rate. Gastrointestinal: Normal bowel sounds, No tenderness Musculoskeletal: No tenderness Integumentary: No rashes Neurological: Dementia Urinary: Betancur catheter. Plan: Patient with poor oral intake. Uric acid level is elevated suggesting dehydration. Echocardiogram done, the result is pending Lasix discontinued. Cardiology is following Continue amiodarone for A-fib. Patient considered not a candidate for anticoagulation given her advanced age and advanced dementia. Heart rate is currently controlled on the current amiodarone dose. Labetalol as needed for BP spikes. KATIE resolved All cultures: negative Attempt to insert NG tube for feeding was unsuccessful. Encourage feeding and oral rehydration. Feed with assistance. Trial of PPI to treat peptic ulcer GERD to see if her oral intake will improve. We will also treat with stool softeners and laxatives. May need to discuss hospice vs PEG tube feeding within the next couple of days if no significant improvement in mental status and functional status. Increase activity as tolerated. We will treat medication list from the half-way. Meanwhile we will manage hypertension with oral amlodipine.
--- NOTE | 2022-08-04 13:34 | ECHO ---
HEIGHT: 4 ft 9 in WEIGHT: 102 lb 5 oz DATE OF STUDY: 08/04/[address]: Elsa Boggs 2-DIMENSIONAL: YES M.MODE: YES DOPPLER: YES COLOR FLOW: YES TDS: PORTABLE: YES DEFINITY: BUBBLE STUDY: DIAGNOSIS: CONGESTIVE HEART FAILURE, ATRIAL FIBRILLATION CARDIAC HISTORY: CATHERIZATION: NO SURGERY: NO PROSTHETIC VALVE: NO PACEMAKER: NO MEASUREMENTS (cm) DIASTOLIC (NORMALS) SYSTOLIC (NORMALS) IVSd 0.8 (0.6-1.2) LA Diam 3.7 (1.9-4.0) LVEF 63% LVIDd 2.6 (3.5-5.7) LVIDs 1.7 (2.0-3.5) %FS 33% LVPWd 0.8 (0.6-1.2) Ao Diam 2.3 (2.0-3.7) 2 DIMENSIONAL ASSESSMENT: RIGHT ATRIUM: NORMAL LEFT ATRIUM: ENLARGED RIGHT VENTRICLE: NORMAL LEFT VENTRICLE: NORMAL TRICUSPID VALVE: MODERATE TRICUSPID REGURGITATION MITRAL VALVE: MITRAL ANNULAR CALCIFICATION WITH MILD MITRAL REGURGITATION PULMONIC VALVE: NORMAL AORTIC VALVE: MILD AORTIC INSUFFICIENCY PERICARDIAL EFFUSION: NONE AORTIC ROOT: NORMAL LEFT VENTRICULAR WALL MOTION: NORMAL DOPPLER/COLOR FLOW: SEE BELOW COMMENTS: 1. NORMAL LEFT VENTRICULAR EJECTION FRACTION 60-65% WITH NORMAL WALL MOTION 2. ATRIAL FIBRILLATION 3. LEFT ATRIAL ENLARGEMENT 4. MILD MITRAL REGURGITATION 5. MODERATE TRICUSPID REGURGITATION TECHNOLOGIST: REBECCA GROSS
[2022-08-04] MEDS ORDERED: SODIUM CHLORIDE 0.9% 20 ML VIAL IV PRN (13:36)
[2022-08-04] MEDS: AMLODIPINE 10 MG TAB PO SCH (14:09)
[2022-08-04] MEDS ORDERED: HALOPERIDOL LACT 5 MG/ML INJ IV ONE (18:23)
[2022-08-04] MEDS: ENSURE ENLIVE 237 ML CAN PO SCH (20:14)
[2022-08-04] MEDS: POLYETHYL GLY 3350 17 GM/DOSE PO SCH (21:00)
[2022-08-04] MEDS: PANTOPRAZOLE 40 MG INJ IVP SCH (21:56)
--- NOTE | 2022-08-04 22:05 | P.PN ---
Date of Service: 08/05/22 Subjective: agitated overnight sedated this morning with haldol ROS: 10 point ROS as noted above, otherwise negative Physical Exam: Gen: confused, NAD, Betancur catheter in place HEENT: normal conjunctiva, sclera anicteric CV: irregular rate & rhythm, no edema Pulm: non-labored respirations on room air, diminished at bases bilaterally Abd: soft, mild ternderness in RUQ Neuro: somnolent, moves extremities, vitals reviewed Problem List: Acute on chronic diastolic heart failure Atrial fibrillation Advanced Dementia Hypertension Hypothyroidism Cardiology consulted EKG reports A-Fib, left atrial enlargement, and moderate tricuspid regurgitation continue amiodarone for a-fib; heart rate is currently controlled currently not a candidate for anticoagulation Continue to monitor BP KATIE resolved unclear etiology of fever / AMS patient with low grade temps / 100.3 here Blood cultures - negative urinalysis - negative somewhat tender in RUQ, but exam is limited due to patient's mentation initial CT noted cholelithiasis, U/S, similar; no sonographic evidence of cholecystitis tbili increasing; lfts improving consult general surgery attempt MRCP; no gi available Patient has poor oral intake NG tube insertion unsuccessful Feed with assistance Trial PPI to see if oral intake improves stool softeners/laxatives as needed Continue home medication as per intermediate VTE: Lovenox Code: Full Dispo: intermediate, greater than 2 days
[2022-08-05 05:09] LABS: Absolute Lymphocytes (CBC) 0.8 K/uL (0.7-4.9); Hematocrit 40.7 % (36.0-45.0); MCV 95.5 fL (80-100); MPV 8.1 fL (7.6-11.3); RBC Red Blood Cell Count 4.26 M/uL (3.86-4.86)
[2022-08-05 05:10] LABS: Bilirubin Total 2.4 mg/dL (0.2-1.0); Magnesium 1.8 mg/dL (1.6-2.4); Potassium 3.8 mmol/L (3.5-5.1)
[2022-08-05 05:42] LABS: Anisocytosis 1+; Blood Morphology Comment NOTED (NOT SEEN); Ovalocytes 1+; Platelet Estimate ADEQ; White Blood Cell Scan OK (OK)
[2022-08-05] MEDS ORDERED: POTASSIUM 25 MEQ EFFERV TAB PO ONE (06:30)
[2022-08-05] MEDS: METOPROLOL TAR 25 MG TAB PO SCH ×2 (07:45→17:55)
[2022-08-05] MEDS ORDERED: HALOPERIDOL LACT 5 MG/ML INJ IV ONE (07:58)
[2022-08-05] MEDS ORDERED: ZIPRASIDONE MESYLA 20 MG/VIAL IM ONE (08:09)
[2022-08-05] MEDS: AMLODIPINE 10 MG TAB PO SCH (09:00)
[2022-08-05] MEDS: PANTOPRAZOLE 40 MG INJ IVP SCH ×2 (09:00→21:16)
[2022-08-05] MEDS: ENOXAPARIN 40 MG/0.4 ML SQ SCH (09:00)
[2022-08-05] MEDS: ENSURE ENLIVE 237 ML CAN PO SCH ×2 (09:00→21:00)
[2022-08-05] MEDS: POLYETHYL GLY 3350 17 GM/DOSE PO SCH ×2 (09:00→21:00)
[2022-08-05] MEDS: AMIODARONE HCL 200 MG TAB PO SCH ×2 (09:00→21:00)
--- NOTE | 2022-08-05 17:34 | RAD REPORT ---
EXAM DESCRIPTION: US - Abdomen Exam Complete - 08/05/2022 5:14 pm CLINICAL HISTORY: Right upper quadrant pain COMPARISON: July 31, 2022 FINDINGS: The liver has borderline increased echotexture. A lesion not visualized Cholelithiasis. Gallbladder wall borderline thickened. It Evaluation pancreas somewhat limited secondary to overlying bowel gas. 3 millimeter cystic structure within the pancreatic body The right kidney measures 9 centimeters with a normal echotexture. Left kidney and spleen not visualized secondary to difficulty with patient cooperation. Abdominal aorta/IVC do not demonstrate a significant abnormality IMPRESSION: Cholelithiasis. Borderline gallbladder wall thickening may indicate cholecystitis 3 millimeter cystic structure pancreatic body. MRI in 1 year could be obtained for re-evaluation if c linically indicated
[2022-08-06 03:33] LABS: Absolute Lymphocytes (CBC) 1.1 K/uL (0.7-4.9); Hematocrit 42.5 % (36.0-45.0); Lymphocytes % 13.6 % (15.3-44.8); MCV 95.8 fL (80-100); RBC Red Blood Cell Count 4.44 M/uL (3.86-4.86)
[2022-08-06 03:58] LABS: Albumin 3.3 g/dL (3.4-5.0); Bilirubin Total 2.2 mg/dL (0.2-1.0); Magnesium 1.9 mg/dL (1.6-2.4); Potassium 3.5 mmol/L (3.5-5.1); Protein, Total 6.5 g/dL (6.4-8.2)
[2022-08-06] MEDS: LABETALOL 20 MG/4ML SYRINGE IV PRN ×2 (04:07→08:46)
[2022-08-06] MEDS: METOPROLOL TAR 25 MG TAB PO SCH ×2 (05:46→18:31)
[2022-08-06] MEDS ORDERED: POTASSIUM 25 MEQ EFFERV TAB PO ONE (06:30)
--- NOTE | 2022-08-06 07:05 | P.PN ---
Date of Service: 08/06/22 Subjective: agitated; keeps trying to get out of bed confused refusing meds and food afebrile overnight ROS: 10 point ROS as noted above, otherwise negative Physical Exam: Gen: confused, NAD, Betancur catheter in place, oriented to self only HEENT: normal conjunctiva, sclera anicteric CV: irregular rate & rhythm, no edema Pulm: non-labored respirations on room air, diminished at bases bilaterally Abd: soft, mild ternderness in RUQ Neuro: somnolent, moves extremities vitals reviewed Problem List: Acute on chronic diastolic heart failure Atrial fibrillation Advanced Dementia Cholelithiasis Hypertension Hypothyroidism Cardiology consulted echo reports A-Fib, left atrial enlargement, and moderate tricuspid regurgitation continue amiodarone for a-fib; heart rate is currently controlled currently not a candidate for anticoagulation Continue to monitor BP KATIE resolved unclear etiology of fever / AMS patient with low grade temps / 100.3 is tmax on 08/05 here Blood cultures - negative urinalysis - negative RUQ tenderness, and she reports some pain in RUQ on 08/[address] noted cholelithiasis, U/S, similar; no sonographic evidence of cholecystitis tbili increasing; lfts improving general surgery consulted - recommend med management for now attempted MRCP but patient unable to cooperate / follow commands; no gi available repeat U/S - cholelithiasis, no obvious sonographic evidence, borderline wall thickening check lipase start zosyn Patient has poor oral intake NG tube insertion unsuccessful Feed with assistance as tolerated Trial PPI to see if oral intake improves stool softeners/laxatives as needed Continue home medication as per shelter spoke to grandsone on 08/06, states family discussed and patient is DNR discussed no signficant clinical improvement. He reports mentation/ dementia has been getting worse over last 4-6 weeks. family to discuss how aggressive to be vs possibly comfort measures ambulates with walker, converses but has memory issues. VTE: Lovenox Code: Full Dispo: [facility], greater than 2 days
[2022-08-06] MEDS: PANTOPRAZOLE 40 MG INJ IVP SCH ×2 (08:49→21:40)
[2022-08-06] MEDS: POLYETHYL GLY 3350 17 GM/DOSE PO SCH ×2 (09:00→10:26)
[2022-08-06] MEDS: AMLODIPINE 10 MG TAB PO SCH (10:25)
[2022-08-06] MEDS: AMIODARONE HCL 200 MG TAB PO SCH ×2 (10:25→21:40)
[2022-08-06] MEDS: ENOXAPARIN 40 MG/0.4 ML SQ SCH (10:26)
[2022-08-06] MEDS: ENSURE ENLIVE 237 ML CAN PO SCH ×2 (10:28→21:00)
--- NOTE | 2022-08-06 11:25 | CON ---
Date of Consultation: 08/05/2022 Reason For Consultation: Cholelithiasis. History Of Present Illness: The patient is an 87-year-old female, who was admitted 6 days ago with C HF exacerbation, altered mental status, AFib with RVR. The patient was worked up when she was admitt ed. She did have cholelithiasis and right pleural effusion and she has had some low-grade fevers ove r the last couple of days and her LFTs were elevated, but they have since improved. The patient does have tricuspid regurgitation, so some of this could be complicated by heart failure and again her al kaline phosphatase is normal. Her total bilirubin was slightly elevated and then has been returning back toward normal. She is awake, alert, very confused, unable to give any review of systems and the re has been no evidence of nausea or vomiting. No fever or chills currently, but has had low-grade f ever in the recent past. Review of Systems: Otherwise unremarkable. Past Medical History: Atrial fibrillation, hypertension, dementia, hyperlipidemia, hypothyroidism. Past Surgical History: Unknown. The patient is a care home patient. Allergies: NO KNOWN DRUG ALLERGIES. Social History: The patient does not smoke or drink alcohol. Physical Examination: Vital Signs: Currently are stable. Blood pressure is systolic to low high at 172 to 185, diastolic is between 90 and 100. Heart rate is between 92 and 106. The last temperature was yesterday morning at 100.3. Since then, the patient has been afebrile. General: She is awake, alert, and confused. Head and Neck: No masses. No icterus. Chest: Clear. Heart: S1 and S2. Abdomen: Soft, nondistended. Minimal diffuse nonspecific tenderness. No rebound, rigidity, or guar ding. Extremity: Adequately perfused. Nontender. Neuro: Nonfocal. Laboratory Data: White count is normal. There is no left shift. INR is 1.74. Chemistry is reviewe d. Her total bilirubin is 2.2. Direct bilirubin yesterday was 1.2. AST is 47, ALT is 53, alkaline phosphatase is 55. Her lipase is 156. Her ultrasound done last and then yesterday. There is no significant change. She does have gallstones. CT of the head, chest, abdomen, and pelvis show s right pleural effusion and cholelithiasis. No other significant finding. Assessment: An 87-year-old female with cholelithiasis, history of elevated liver function tests, and questionable history of abdominal pain. Recommendations: The patient is high risk for any intervention at this time. Her echo was reviewed, does have evidence of heart failure. Medical management should be optimized. The patient can be pu t on empiric antibiotics for any small possibility of subclinical cholecystitis, but I do not believe the patient has acute cholecystitis and based on my exam, the patient does not need any acute surgic al intervention and we will follow this patient while in the hospital. Plan of care discussed in det ail with Dr. Muse. /MODL Voice ID: [id number] Report ID: [id number]
[2022-08-06] MEDS: ZIPRASIDONE MESYLA 20 MG/VIAL IM PRN (14:21)
[2022-08-06] MEDS: WATER FOR INJ,STERILE 10 ML IM PRN (14:22)
[2022-08-06] MEDS: PIPER TAZO 3.375 GM in NA CHLORIDE 0.9% 100 ML IV SCH ×2 (18:30→22:15)
[2022-08-07 03:48] LABS: Absolute Lymphocytes (CBC) 0.8 K/uL (0.7-4.9); Hematocrit 40.9 % (36.0-45.0); Lymphocytes % 11.8 % (15.3-44.8); MCV 95.8 fL (80-100); MPV 8.1 fL (7.6-11.3); RBC Red Blood Cell Count 4.28 M/uL (3.86-4.86)
[2022-08-07 04:01] LABS: Albumin 2.9 g/dL (3.4-5.0); Magnesium 1.7 mg/dL (1.6-2.4); Phosphorus 2.3 mg/dL (2.5-4.9); Protein, Total 5.9 g/dL (6.4-8.2)
[2022-08-07] MEDS ORDERED: MAGNESIUM SULFATE 1 gm IVPB 1 GM/100 ML BAG IV ONE (04:30)
[2022-08-07] MEDS: METOPROLOL TAR 25 MG TAB PO SCH ×2 (05:46→18:18)
[2022-08-07] MEDS: PIPER TAZO 3.375 GM in NA CHLORIDE 0.9% 100 ML IV SCH ×3 (05:46→22:49)
--- NOTE | 2022-08-07 07:06 | P.PN ---
Date of Service: 08/07/22 Subjective: more alert/awake demented, confused; not aware where we are / what year repeats questions ate minimal breakfast ROS: 10 point ROS as noted above, otherwise negative Physical Exam: Gen: confused, NAD, Betancur catheter in place, oriented to self only HEENT: normal conjunctiva, sclera anicteric CV: irregular rate & rhythm, no edema Pulm: non-labored respirations on room air, diminished at bases bilaterally Abd: soft, mild ternderness in RUQ Neuro: awake, confused, moves extremities vitals reviewed Problem List: Acute on chronic diastolic heart failure Atrial fibrillation Advanced Dementia Cholelithiasis Hypertension Hypothyroidism Cardiology consulted echo reports A-Fib, left atrial enlargement, and moderate tricuspid regurgitation continue amiodarone for a-fib; heart rate is currently controlled currently not a candidate for anticoagulation Continue to monitor BP KATIE resolved unclear etiology of fever / AMS reportedly febrile at group home patient with low grade temps / 100.3 is tmax on 08/05 here Blood cultures - negative urinalysis - negative RUQ tenderness, and she reports some pain in RUQ on 08/[address] noted cholelithiasis, U/S, similar; no sonographic evidence of ch olecystitis initially with tbili increasing; lfts improving general surgery consulted - recommend med management for now attempted MRCP but patient unable to cooperate / follow commands; no gi a vailable repeat U/S - cholelithiasis, no obvious sonographic evidence, borderline wall thickening tbili and lfts now improving 08/07 lipase mildly elevated, slowly improving zosyn started empirically 08/06 Patient has poor oral intake NG tube insertion unsuccessful a few days ago Feed with assistance as tolerated stool softeners/laxatives as needed Continue home medication as per group home spoke to grandson on 08/06, states family discussed and patient is DNR discussed no significant clinical improvement. He reports mentation/ dementia has been getting worse over last 4-6 weeks. family to discuss how aggressive to be vs possibly comfort measures at baseline ~6-8weeks ago: ambulates with walker, converses but has memory issues. VTE: Lovenox Code: DNR Dispo: residential, ~24-48 hours pending improvement of mentation and eating / tolerating diet
--- NOTE | 2022-08-07 07:43 | RAD REPORT ---
EXAM DESCRIPTION: Deanna Single View08/07/2022 6:51 am CLINICAL HISTORY: Shortness of breath COMPARISON: August 03, 2022 FINDINGS: Soft tissue overlies the lateral right chest The lungs appear grossly clear. Heart remains enlarged.
--- NOTE | 2022-08-07 08:45 | PN ---
Date of Progress Note: 08/07/2022 Subjective: The patient is awake. Objective: Vital Signs: Stable, afebrile. Abdomen: Benign Laboratory Data: Improved. Assessment: Cholelithiasis and right pleural effusion. Recommendations: Begin diet and advance as tolerated and continue antibiotics. Can be discharged ba to the shelter on oral antibiotics. No need for any surgical intervention at this time. Loretta n of care discussed with Dr. Muse. /MODL Voice ID: [id number] Report ID: [id number]
[2022-08-07] MEDS: POTASS/SODIUM PHOSPHATE 1 PKT POWD.PACK PO SCH ×3 (09:00→11:05)
[2022-08-07] MEDS: ENSURE ENLIVE 237 ML CAN PO SCH ×2 (09:00→21:00)
[2022-08-07] MEDS: AMLODIPINE 10 MG TAB PO SCH (11:05)
[2022-08-07] MEDS: PANTOPRAZOLE 40 MG INJ IVP SCH ×2 (11:06→22:49)
[2022-08-07] MEDS: AMIODARONE HCL 200 MG TAB PO SCH ×2 (11:06→22:50)
[2022-08-07] MEDS: ENOXAPARIN 40 MG/0.4 ML SQ SCH (11:06)
[2022-08-07] MEDS: WATER FOR INJ,STERILE 10 ML IM PRN (11:50)
[2022-08-07] MEDS: ZIPRASIDONE MESYLA 20 MG/VIAL IM PRN (11:51)
[2022-08-08] MEDS: METOPROLOL TAR 25 MG TAB PO SCH ×2 (06:00→17:28)
[2022-08-08] MEDS: PIPER TAZO 3.375 GM in NA CHLORIDE 0.9% 100 ML IV SCH ×3 (06:00→21:13)
[2022-08-08 06:28] LABS: Hematocrit 40.6 % (36.0-45.0); Lymphocytes % 11.1 % (15.3-44.8); MCV 96.1 fL (80-100); RBC Red Blood Cell Count 4.23 M/uL (3.86-4.86)
[2022-08-08 06:49] LABS: Albumin 2.9 g/dL (3.4-5.0); Bilirubin Total 1.8 mg/dL (0.2-1.0); Magnesium 2.1 mg/dL (1.6-2.4); Potassium 3.6 mEq/L (3.5-5.1)
--- NOTE | 2022-08-08 06:58 | P.PN ---
Date of Service: 08/08/22 Subjective: appears anxious; demented/confused but awake/alert wanting to get out of bed answering questions but not completely appropriate ate minimal breakfast no acute events overnight ROS: 10 point ROS as noted above, otherwise negative Physical Exam: Gen: confused, NAD, Betancur catheter in place, oriented to self only HEENT: normal conjunctiva, sclera anicteric CV: irregular rate & rhythm, no edema Pulm: non-labored respirations on room air, diminished at bases bilaterally Abd: soft, mild tenderness in RUQ Neuro: awake, confused, moves extremities vitals reviewed Problem List: fever/failure to thrive Acute on chronic diastolic heart failure Atrial fibrillation, chronic Advanced Dementia Cholelithiasis Hypertension Hypothyroidism Cardiology consulted echo reports A-Fib, left atrial enlargement, and moderate tricuspid regurgitation continue amiodarone for a-fib; heart rate is currently controlled currently not a candidate for anticoagulation given age/risk factors/dementia Continue to monitor BP KATIE resolved unclear etiology of fever / AMS reportedly febrile at senior care patient with low grade temps / 100.3 is tmax on 08/05 here Blood cultures - negative, urinalysis - negative RUQ tenderness, and she reports some pain in RUQ on 08/[address] noted cholelithiasis, U/S, similar; no sonographic evidence of cholecystitis initially with tbili increasing; lfts improving general surgery consulted - recommend med management for now attempted MRCP but patient unable to cooperate / follow commands; no gi available repeat U/S - cholelithiasis, no obvious sonographic evidence, borderline wall thickening tbili and lfts now improving 08/07 lipase mildly elevated, no epigastric pain, do not suspect pancreatitis possibly passed stone zosyn started empirically 08/06 Patient has poor oral intake NG tube insertion unsuccessful a few days ago Feed with assistance as tolerated family in agreement would not pursue peg tube stool softeners/laxatives as needed Continue home medication as per senior care spoke to grandson on 08/06, states family discussed and patient is DNR; 08/08 states family in agreement no peg tube at baseline ~6-8weeks ago: ambulates with walker, converses but has memory issues. VTE: Lovenox Code: DNR Dispo: skilled nursing, ~48 hours pending improvement of mentation and eating / tolerating diet
[2022-08-08] MEDS: AMIODARONE HCL 200 MG TAB PO SCH ×2 (10:49→21:13)
[2022-08-08] MEDS: AMLODIPINE 10 MG TAB PO SCH (10:49)
[2022-08-08] MEDS: ENOXAPARIN 40 MG/0.4 ML SQ SCH (10:50)
[2022-08-08] MEDS: ENSURE ENLIVE 237 ML CAN PO SCH ×3 (10:52→21:13)
[2022-08-08] MEDS: PANTOPRAZOLE 40 MG INJ IVP SCH ×2 (10:53→21:13)
[2022-08-09] MEDS: METOPROLOL TAR 25 MG TAB PO SCH ×3 (06:00→18:00)
[2022-08-09 06:18] LABS: Absolute Lymphocytes (CBC) 0.9 K/uL (0.7-4.9); Hematocrit 41.9 % (36.0-45.0); Lymphocytes % 13.7 % (15.3-44.8); MCV 96.6 fL (80-100); RBC Red Blood Cell Count 4.34 M/uL (3.86-4.86)
[2022-08-09 06:38] LABS: Albumin 3.1 g/dL (3.4-5.0); Bilirubin Total 1.9 mg/dL (0.2-1.0); Potassium 3.4 mEq/L (3.5-5.1); Protein, Total 6.8 g/dL (6.4-8.2)
--- NOTE | 2022-08-09 06:39 | P.PN ---
Date of Service: 08/09/22 Subjective: ambulated with PT yesterday, ~75 ft more alert- to self only; more responsive answering questions more appropriately today few bites of breakfast complains of ABD pain but not localizing when asked ROS: 10 point ROS as noted above, otherwise negative Physical Exam: Gen: confused, NAD, oriented to self only HEENT: normal conjunctiva, sclera anicteric CV: irregular rate & rhythm, no edema Pulm: non-labored respirations on room air, diminished at bases bilaterally Abd: soft, diffuse tenderness somewhat more pronounced in Epigastric - RUQ Neuro: awake, confused, moves extremities Betancur catheter in place vitals reviewed Problem List: fever/failure to thrive Acute on chronic diastolic heart failure Atrial fibrillation, chronic Advanced Dementia Cholelithiasis Hypertension Hypothyroidism severe protein calorie malnutrition Cardiology consulted echo reports A-Fib, left atrial enlargement, and moderate tricuspid regurgitation continue amiodarone for a-fib; heart rate is currently controlled currently not a candidate for anticoagulation given age/risk factors/dementia Continue to monitor BP KATIE resolved unclear etiology of fever / A[facility]; patient with low grade temps / 100.3 is tmax on 08/05 here Blood cultures - negative, UA - negative RUQ tenderness, and she reports some pain in RUQ on 08/06, again on 08/[address] noted cholelithiasis, U/S, similar; no sonographic evidence of cholecystitis initially with tbili increasing; lfts improving general surgery consulted - recommend med management for now - no evidence of peritonitis, no cholecystitis attempted MRCP but patient unable to cooperate / follow commands; no gi available repeat U/S - cholelithiasis, no obvious sonographic evidence, borderline wall thickening tbili and lfts improving 08/07 continue to be stable in normal range; tbili 1.8 -> 1.9 lipase increased, +Epigastric pain - start gentle IVF 08/09, given pt's h/o CHF if no improvement in pain / levels, but can follow commands, will attempt to get MRCP thursday possibly passed stone zosyn started empirically 08/06 Patient has poor oral intake attempted NG tube insertion ~1 week ago, unsuccessful Feed with assistance as tolerated family in agreement would not pursue peg tube stool softeners/laxatives as needed Continue home medication as per pen[facility] spoke to grandson on 08/06, states family discussed and patient is DNR; 3/17 states family in agreement no peg tube at baseline ~6-8weeks ago: ambulates with walker, converses but has memory issues. VTE: Lovenox Code: DNR Dispo: shelter, ~72 hours pending improvement of mentation and eating / tolerating diet, lipase
[2022-08-09] MEDS: PIPER TAZO 3.375 GM in NA CHLORIDE 0.9% 100 ML IV SCH ×3 (06:43→22:30)
[2022-08-09] MEDS: PANTOPRAZOLE 40 MG INJ IVP SCH ×2 (10:50→22:30)
[2022-08-09] MEDS: ENOXAPARIN 40 MG/0.4 ML SQ SCH (10:51)
[2022-08-09] MEDS: AMIODARONE HCL 200 MG TAB PO SCH ×2 (10:51→21:00)
[2022-08-09] MEDS: ENSURE ENLIVE 237 ML CAN PO SCH ×3 (10:53→21:00)
[2022-08-09] MEDS: AMLODIPINE 10 MG TAB PO SCH (11:04)
[2022-08-09] MEDS: D5.45NS W/KCL 20MEQ 20 MEQ/1,000 ML BAG IV SCH (13:47)
[2022-08-09] MEDS ORDERED: HYDROCODONE/APAP 5/325 MG TAB PO PRN (16:44)
[2022-08-09] MEDS ORDERED: NA CHLORIDE 0.9% 0 ML ONE (17:43)
[2022-08-09] MEDS: ZIPRASIDONE MESYLA 20 MG/VIAL IM PRN (18:56)
[2022-08-10] MEDS: METOPROLOL TAR 25 MG TAB PO SCH ×3 (06:00→18:42)
[2022-08-10] MEDS: PIPER TAZO 3.375 GM in NA CHLORIDE 0.9% 100 ML IV SCH ×3 (06:03→21:35)
[2022-08-10 06:42] LABS: Lymphocytes % 18.8 % (15.3-44.8); MCV 95.5 fL (80-100); MPV 8.5 fL (7.6-11.3); RBC Red Blood Cell Count 4.29 M/uL (3.86-4.86)
[2022-08-10 07:08] LABS: Albumin 2.7 g/dL (3.4-5.0); Bilirubin Total 1.3 mg/dL (0.2-1.0); Potassium 3.4 mEq/L (3.5-5.1); Protein, Total 6.2 g/dL (6.4-8.2)
[2022-08-10] MEDS: KCL 20 MEQ/100 mL IVPB 20 MEQ/100 ML BAG IV SCH ×2 (08:00→10:00)
--- NOTE | 2022-08-10 08:58 | P.PN ---
Date of Service: 08/10/22 Subjective: less alert, more incoherent mumbling at times small BM yesterday per nurse - pt got up to bedside commode with assistance yesterday minimal PO intake ROS: 10 point ROS as noted above, otherwise negative Physical Exam: Gen: confused, NAD, oriented to self only HEENT: normal conjunctiva, sclera anicteric CV: irregular rate & rhythm, no edema Pulm: non-labored respirations on room air, diminished at bases bilaterally Abd: soft, mild diffuse tenderness, hard mass palpated in lower abdomen Neuro: awake, confused, moves extremities Betancur catheter in place, draining well vitals reviewed Problem List: fever/failure to thrive Acute on chronic diastolic heart failure Atrial fibrillation, chronic Advanced Dementia Constipation Cholelithiasis Hypertension Hypothyroidism severe protein calorie malnutrition Afib, chronic CHF Cardiology consulted echo reports A-Fib, left atrial enlargement, and moderate tricuspid regurgitation continue amiodarone for a-fib; heart rate is currently controlled currently not a candidate for anticoagulation given age/risk factors/dementia unclear etiology of fever / AMS reportedly febrile at senior care; patient remains afebril here, had one >100 (100.3 on 08/05) Blood cultures - negative, UA - negative RUQ tenderness, and reported some pain in RUQ on 08/06, again on 08/[address] noted cholelithiasis, U/S, similar; no sonographic evidence of cholecystitis initially with tbili increasing; lfts improving general surgery consulted - recommend med management for now - no evidence of peritonitis, no cholecystitis attempted MRCP but patient unable to cooperate / follow commands; no gi available repeat U/S - cholelithiasis, no obvious sonographic evidence, borderline wall thickening tbili and lfts further improving 08/10 few days ago, had lipase uptrending; with epigastric pain; no evidence of pancreatitis started gentle IVF 08/09, given pt's h/o CHF will monitor closely, but taking minimal PO if no improvement in pain / levels, but can follow commands, will attempt to get MRCP thursday possibly passed stone zosyn started empirically 08/06 palpable mass in lwoer abdomen 08/10 - suspect stool, pt without good BM in >1week; enema 08/10 Patient has poor oral intake attempted NG tube insertion ~1 week ago, unsuccessful Feed with assistance as tolerated family in agreement would not pursue peg tube Continue home medication as per senior care spoke to grandson on 08/06, states family discussed and patient is DNR; 08/08 states family in agreement no peg tube at baseline ~6-8weeks ago: ambulates with walker, converses but has memory issues. VTE: Lovenox Code: DNR Dispo: residential, ~72 hours pending improvement of mentation and eating / tolerating diet, lipase; constipation
[2022-08-10] MEDS ORDERED: POTASSIUM CL SA 10 MEQ TAB PO ONE (09:00)
[2022-08-10] MEDS: AMIODARONE HCL 200 MG TAB PO SCH ×2 (09:57→20:05)
[2022-08-10] MEDS: AMLODIPINE 10 MG TAB PO SCH (09:57)
[2022-08-10] MEDS: PANTOPRAZOLE 40 MG INJ IVP SCH ×2 (09:57→20:05)
[2022-08-10] MEDS: ENSURE ENLIVE 237 ML CAN PO SCH ×3 (09:58→20:06)
[2022-08-10] MEDS: ENOXAPARIN 40 MG/0.4 ML SQ SCH (09:58)
[2022-08-10] MEDS: FLEET ENEMA ADULT PR ONE ×2 (09:59→10:00)
[2022-08-10] MEDS: D5.45NS W/KCL 20MEQ 20 MEQ/1,000 ML BAG IV SCH ×2 (10:00→14:35)
[2022-08-10] MEDS: DOCUSATE NA 100 MG CAP PO SCH ×2 (10:50→20:05)
--- NOTE | 2022-08-10 14:08 | RAD REPORT ---
EXAM DESCRIPTION: RAD - Abdomen 1 View (KUB) - 08/10/2022 1:51 pm CLINICAL HISTORY: constipation COMPARISON: Chest Single View dated 08/07/2022 TECHNIQUE: Single AP view of the abdomen. FINDINGS: Nonobstructive bowel gas pattern. No air-fluid levels, free air, or pneumatosis. No signif icant stool retention. No suspicious calcifications. No significant bony abnormality. IMPRESSION: Nonobstructive bowel gas pattern.
[2022-08-10] MEDS: ZIPRASIDONE MESYLA 20 MG/VIAL IM PRN (15:49)
[2022-08-10] MEDS: MELATONIN 5 MG TABLET PO PRN (20:05)
[2022-08-11 03:17] LABS: Hematocrit 36.5 % (36.0-45.0); Lymphocytes % 15.2 % (15.3-44.8); MCV 96.2 fL (80-100); MPV 8.4 fL (7.6-11.3); RBC Red Blood Cell Count 3.79 M/uL (3.86-4.86)
[2022-08-11 03:35] LABS: Albumin 2.6 g/dL (3.4-5.0); Bilirubin Total 0.9 mg/dL (0.2-1.0); Phosphorus 1.9 mg/dL (2.5-4.9); Potassium 3.8 mEq/L (3.5-5.1); Protein, Total 5.6 g/dL (6.4-8.2)
[2022-08-11] MEDS: PIPER TAZO 3.375 GM in NA CHLORIDE 0.9% 100 ML IV SCH ×3 (05:06→22:00)
[2022-08-11] MEDS: METOPROLOL TAR 25 MG TAB PO SCH ×2 (05:07→17:25)
[2022-08-11] MEDS: POTASS/SODIUM PHOSPHATE 1 PKT POWD.PACK PO SCH ×3 (05:07→09:47)
[2022-08-11] MEDS: D5.45NS W/KCL 20MEQ 20 MEQ/1,000 ML BAG IV SCH ×3 (05:19→18:00)
--- NOTE | 2022-08-11 06:55 | P.PN ---
Date of Service: 08/11/22 Subjective: Much more alert / awake; responding to questions - not completely appropriate, and partly seemingly due to hard of hearing speaking in sentences tolerated bites of breakfast this morning, tolerating oral liquids per nursing reports no ABD pain today; soft BM yesterday ROS: 10 point ROS as noted above, otherwise negative Physical Exam: Gen: confused, NAD, oriented to self only HEENT: normal conjunctiva, sclera anicteric CV: irregular rate & rhythm, no edema Pulm: non-labored respirations on room air, diminished at bases bilaterally Abd: soft, nontender, nondistended Neuro: awake, confused, moves extremities Betancur catheter in place, draining well vitals reviewed Problem List: fever/failure to thrive Acute on chronic diastolic heart failure Atrial fibrillation, chronic Advanced Dementia Constipation Cholelithiasis Hypertension Hypothyroidism severe protein calorie malnutrition Afib, chronic CHF Cardiology consulted echo reports A-Fib, left atrial enlargement, and moderate tricuspid reg urgitation continue amiodarone for a-fib; heart rate is currently controlled currently not a candidate for anticoagulation given age/risk factors/dementia unclear etiology of fever / AMS reportedly febrile at long term; patient remains afebril here, had one >100 (100.3 on 08/05) Blood cultures - negative, UA - negative RUQ tenderness, and reported some pain in RUQ on 08/06, again on 08/[address] noted cholelithiasis, U/S, similar; no sonographic evidence of cholecystitis initially with tbili increasing; lfts improving general surgery consulted - recommend med management for now - no evidence of peritonitis, no cholecystitis attempted MRCP but patient unable to cooperate / follow commands; no gi available repeat U/S - cholelithiasis, no obvious sonographic evidence, borderline wall thickening tbili and lfts further improving 08/10 few days ago, had lipase uptrending; with epigastric pain; no evidence of pancreatitis started gentle IVF 08/09, given pt's h/o CHF will monitor closely, but taking minimal PO improving possibly passed stone zosyn started empirically 08/06 palpable mass in lower abdomen 08/10 - suspect stool, pt without good BM in >1week; had good amount of BM on 08/10; KUB done after - no acute findings Patient has poor oral intake attempted NG tube insertion ~1 week ago, unsuccessful Feed with assistance as tolerated family in agreement would not pursue peg tube Continue home medication as per long term spoke to grandson on 08/06, states family discussed and patient is DNR; 08/08 states family in agreement no peg tube at baseline ~6-8weeks ago: ambulates with walker, converses but has memory issues. VTE: Lovenox Code: DNR Dispo: snf, ~48-72 hours pending improvement of mentation and eating / tolerating diet
[2022-08-11] MEDS ORDERED: POTASSIUM CL SA 10 MEQ TAB PO ONE (09:00)
[2022-08-11] MEDS: ENSURE ENLIVE 237 ML CAN PO SCH ×3 (09:33→21:00)
[2022-08-11] MEDS: PANTOPRAZOLE 40 MG INJ IVP SCH ×2 (09:33→21:00)
[2022-08-11] MEDS: AMIODARONE HCL 200 MG TAB PO SCH ×2 (09:34→21:00)
[2022-08-11] MEDS: AMLODIPINE 10 MG TAB PO SCH (09:34)
[2022-08-11] MEDS: DOCUSATE NA 100 MG CAP PO SCH ×2 (09:34→21:00)
[2022-08-11] MEDS: ENOXAPARIN 40 MG/0.4 ML SQ SCH (09:34)
[2022-08-11] MEDS ORDERED: ALBUTEROL 2.5 MG/3 ML NEB SOL NEB PRN (14:19)
[2022-08-11] MEDS ORDERED: IPRATROPIUM BROM 0.5MG/2.5ML NEB PRN (14:20)
[2022-08-11] MEDS: WATER FOR INJ,STERILE 10 ML IM PRN (20:04)
[2022-08-11] MEDS: ZIPRASIDONE MESYLA 20 MG/VIAL IM PRN (20:05)
[2022-08-12 03:15] LABS: Absolute Lymphocytes (CBC) 1.5 K/uL (0.7-4.9); Hematocrit 38.5 % (36.0-45.0); MPV 8.3 fL (7.6-11.3); RBC Red Blood Cell Count 4.01 M/uL (3.86-4.86)
[2022-08-12 03:25] LABS: Albumin 2.6 g/dL (3.4-5.0); Magnesium 1.8 mg/dL (1.6-2.4); Phosphorus 2.3 mg/dL (2.5-4.9); Potassium 4.4 mEq/L (3.5-5.1); Protein, Total 5.8 g/dL (6.4-8.2)
[2022-08-12] MEDS: METOPROLOL TAR 25 MG TAB PO SCH ×2 (06:00→18:27)
[2022-08-12] MEDS: PIPER TAZO 3.375 GM in NA CHLORIDE 0.9% 100 ML IV SCH ×3 (06:00→23:49)
[2022-08-12] MEDS: DOCUSATE NA 100 MG CAP PO SCH ×2 (08:41→21:00)
[2022-08-12] MEDS: AMLODIPINE 10 MG TAB PO SCH (08:41)
[2022-08-12] MEDS: AMIODARONE HCL 200 MG TAB PO SCH ×2 (08:41→21:00)
[2022-08-12] MEDS: POTASS/SODIUM PHOSPHATE 1 PKT POWD.PACK PO SCH ×2 (08:41→10:09)
[2022-08-12] MEDS: ENOXAPARIN 40 MG/0.4 ML SQ SCH (08:42)
[2022-08-12] MEDS: ENSURE ENLIVE 237 ML CAN PO SCH ×3 (08:42→21:00)
[2022-08-12] MEDS: PANTOPRAZOLE 40 MG INJ IVP SCH ×2 (08:42→23:49)
[2022-08-12] MEDS ORDERED: MAGNESIUM SULFATE 1 gm IVPB 1 GM/100 ML BAG IV ONE (10:00)
[2022-08-12] MEDS ORDERED: ALBUTEROL 2.5 MG/3 ML NEB SOL NEB PRN (11:00)
[2022-08-12] MEDS ORDERED: IPRATROPIUM BROM 0.5MG/2.5ML NEB PRN (11:00)
--- NOTE | 2022-08-12 14:31 | P.PN ---
Subjective Date of Service: 08/12/22 Primary Care Provider: Kandice Chief Complaint: CHF Exacerbation, AMS, Afib RVR Patient is more awake and interactive today. Poor oral intake. No agitation. Physical Examination - Vital Signs Temperature: 97.6 F Blood Pressure: 151/75 Pulse: 100 Respirations: 16 Pulse Ox (%): 97 Assessment And Plan - Current Problems (Diagnosis) (1) Acute on chronic diastolic heart failure Current Visit: Yes Status: Acute (2) Atrial fibrillation Current Visit: Yes Status: Chronic Qualifiers: Atrial fibrillation type: paroxysmal Qualified Code(s): I48.0 - Paroxysmal atrial fibrillation (3) Hypothyroidism Current Visit: Yes Status: Chronic Qualifiers: Hypothyroidism type: unspecified Qualified Code(s): E03.9 - Hypothyroidism, unspecified (4) Advanced dementia Current Visit: Yes Status: Acute (5) Hypertension Current Visit: Yes Status: Chronic Qualifiers: Hypertension type: primary hypertension Qualified Code(s): I10 - Essential (primary) hypertension - Plan Physical Exam General: Confused. NAD, more interactive Neck: no elevated JVD. Respiratory: Clear to auscultation bilaterally, Normal air movement Cardiovascular: Irregular heart rate/rhythm, normal rate. Gastrointestinal: Normal bowel sounds, No tenderness Musculoskeletal: No tenderness Integumentary: No rashes Neurological: Dementia Urinary: Betancur catheter. Plan: Patient with poor oral intake. Uric acid level is elevated suggesting dehydration. Echocardiogram done, the result is pending Lasix discontinued. Cardiology is following Continue amiodarone for A-fib. Patient considered not a candidate for anticoagulation given her advanced age and advanced dementia. Heart rate is currently controlled on the current amiodarone dose. Labetalol as needed for BP spikes. KATIE resolved All cultures: negative Attempt to insert NG tube for feeding was unsuccessful. Encourage feeding and oral rehydration. Feed with assistance. Trial of PPI to treat peptic ulcer GERD to see if her oral intake will improve. We will also treat with stool softeners and laxatives. May need to discuss hospice vs PEG tube feeding within the next couple of days if no significant improvement in mental status and functional status. Increase activity as tolerated. [facility] Meanwhile we will manage hypertension with oral amlodipine. Physical Exam: Gen: confused, NAD, oriented to self only HEENT: normal conjunctiva, sclera anicteric CV: irregular rate & rhythm, no edema Pulm: non-labored respirations on room air, diminished at bases bilaterally Abd: soft, nontender, nondistended Neuro: awake, confused, moves extremities Betancur catheter in place, draining well vitals reviewed Problem List: fever/failure to thrive Acute on chronic diastolic heart failure Atrial fibrillation, chronic Advanced Dementia Constipation Cholelithiasis Hypertension Hypothyroidism severe protein calorie malnutrition Afib, chronic CHF Cardiology saw patient. echo reported A-Fib, left atrial enlargement, and moderate tricuspid regurgi tation continue amiodarone for a-fib; heart rate is currently controlled currently not a candidate for anticoagulation given age/risk factors/dementia unclear etiology of fever / AMS Blood cultures - negative, UA - negative RUQ tenderness, and reported some pain in RUQ on 08/06, again on 08/[address] noted cholelithiasis, U/S, similar; no sonographic evidence of cholecystitis general surgery consulted - recommend med management for now - no evidence of peritonitis, no cholecystitis attempted MRCP but patient was unable to follow commands. Repeat U/S - cholelithiasis, no obvious sonographic evidence, borderline wall thickening tbili and lfts have improved to normal. She has been on empiric IV Zosyn. Discontinue antibiotics. Patient has poor oral intake attempted NG tube insertion ~1 week ago, unsuccessful Feed with assistance as tolerated family does not want to proceed with PEG tube. Continue home medication as per [facility] VTE: Lovenox Code: DNR Dispo: senior care.
[2022-08-12] MEDS: WATER FOR INJ,STERILE 10 ML IM PRN (16:17)
[2022-08-12] MEDS: ZIPRASIDONE MESYLA 20 MG/VIAL IM PRN (16:17)
[2022-08-12] MEDS ORDERED: ZIPRASIDONE MESYLA 20 MG/VIAL IM ONE (18:18)
[2022-08-13] MEDS: D5.45NS W/KCL 20MEQ 20 MEQ/1,000 ML BAG IV SCH (02:27)
[2022-08-13 03:54] LABS: Phosphorus 2.5 mg/dL (2.5-4.9); Potassium 3.9 mEq/L (3.5-5.1)
[2022-08-13] MEDS: PIPER TAZO 3.375 GM in NA CHLORIDE 0.9% 100 ML IV SCH (06:34)
[2022-08-13] MEDS: METOPROLOL TAR 25 MG TAB PO SCH ×2 (06:35→19:26)
[2022-08-13] MEDS ORDERED: NA CHLORIDE 0.9% 100 ML ONE (06:37)
[2022-08-13] MEDS ORDERED: PIPERACIL/TAZO 3.375 GM VIAL IV ONE (06:37)
[2022-08-13] MEDS: AMLODIPINE 10 MG TAB PO SCH (10:57)
[2022-08-13] MEDS: ENSURE ENLIVE 237 ML CAN PO SCH ×3 (10:57→20:50)
[2022-08-13] MEDS: ENOXAPARIN 40 MG/0.4 ML SQ SCH (10:58)
[2022-08-13] MEDS: AMIODARONE HCL 200 MG TAB PO SCH ×2 (10:58→20:50)
[2022-08-13] MEDS: PANTOPRAZOLE 40 MG INJ IVP SCH ×2 (10:58→20:50)
[2022-08-13] MEDS: DOCUSATE NA 100 MG CAP PO SCH ×2 (10:58→20:49)
[2022-08-13] MEDS: WATER FOR INJ,STERILE 10 ML IM PRN (13:23)
[2022-08-13] MEDS: ZIPRASIDONE MESYLA 20 MG/VIAL IM PRN (13:23)
--- NOTE | 2022-08-13 16:27 | P.PN ---
Subjective Date of Service: 08/13/22 Primary Care Provider: Kandice Chief Complaint: CHF Exacerbation, AMS, Afib RVR Patient was much awake and interactive during my examination in the morning. However she became agitated in the afternoon and was given a dose of IM Geodon. Oral intake is better today Physical Examination - Vital Signs Temperature: 98.1 F Blood Pressure: 162/84 Pulse: 87 Respirations: 16 Pulse Ox (%): 97 Assessment And Plan - Current Problems (Diagnosis) (1) Acute on chronic diastolic heart failure Current Visit: Yes Status: Acute (2) Atrial fibrillation Current Visit: Yes Status: Chronic Qualifiers: Atrial fibrillation type: paroxysmal Qualified Code(s): I48.0 - Paroxysmal atrial fibrillation (3) Hypothyroidism Current Visit: Yes Status: Chronic Qualifiers: Hypothyroidism type: unspecified Qualified Code(s): E03.9 - Hypothyroidism, unspecified (4) Advanced dementia Current Visit: Yes Status: Acute (5) Hypertension Current Visit: Yes Status: Chronic Qualifiers: Hypertension type: primary hypertension Qualified Code(s): I10 - Essential (primary) hypertension - Plan Physical Exam General: Confused. NAD, more interactive Neck: no elevated JVD. Respiratory: Clear to auscultation bilaterally, Normal air movement Cardiovascular: Irregular heart rate/rhythm, normal rate. Gastrointestinal: Normal bowel sounds, No tenderness Musculoskeletal: No tenderness Integumentary: No rashes Neurological: Dementia Urinary: Betancur catheter. Plan: Patient with poor oral intake. Uric acid level is elevated suggesting dehydration. Echocardiogram done, the result is pending Lasix discontinued. Cardiology is following Continue amiodarone for A-fib. Patient considered not a candidate for anticoagulation given her advanced age and advanced dementia. Heart rate is currently controlled on the current amiodarone dose. Labetalol as needed for BP spikes. KATIE resolved All cultures: negative Attempt to insert NG tube for feeding was unsuccessful. Encourage feeding and oral rehydration. Feed with assistance. Trial of PPI to treat peptic ulcer GERD to see if her oral intake will improve. We will also treat with stool softeners and laxatives. May need to discuss hospice vs PEG tube feeding within the next couple of days if no significant improvement in mental status and functional status. Increase activity as tolerated. We will [facility]. Meanwhile we will manage hypertension with oral amlodipine. Physical Exam: Gen: confused, NAD, oriented to self only HEENT: normal conjunctiva, sclera anicteric CV: irregular rate & rhythm, no edema Pulm: non-labored respirations on room air, diminished at bases bilaterally Abd: soft, nontender, nondistended Neuro: awake, confused, moves extremities Betancur catheter in place, draining well vitals reviewed Diagnosis fever/failure to thrive Acute on chronic diastolic heart failure Atrial fibrillation, chronic Advanced Dementia Constipation Cholelithiasis Hypertension Hypothyroidism severe protein calorie malnutrition Afib, chronic CHF Cardiology saw patient. echo reported A-Fib, left atrial enlargement, and moderate tricuspid regurgitation Heart rate is currently controlled on amiodarone. currently not a candidate for anticoagulation given age/risk factors/dementia unclear etiology of fever / AMS Blood cultures - negative, UA - negative RUQ tenderness, and reported some pain in RUQ on 08/06, again on 08/[address] noted cholelithiasis, U/S, similar; no sonographic evidence of cholecystitis general surgery consulted - recommend med management for now - no evidence of peritonitis, no cholecystitis attempted MRCP but patient was unable to follow commands. Repeat U/S - cholelithiasis, no obvious sonographic evidence, borderline wall thickening tbili and lfts have improved to normal. She was on empiric IV Zosyn for several days. Antibiotics discontinued Patient oral intake is improved. attempted NG tube insertion ~1 week ago, unsuccessful Continue to feed with assistance. family does not want to proceed with PEG tube. Continue home medication as per [facility] VTE: Lovenox Code: DNR Dispo: [facility]. Recommending hopce.
[2022-08-13] MEDS: MELATONIN 5 MG TABLET PO PRN (20:51)
[2022-08-14] MEDS: METOPROLOL TAR 25 MG TAB PO SCH (06:27)
[2022-08-14] MEDS: DOCUSATE NA 100 MG CAP PO SCH (09:00)
--- NOTE | 2022-08-14 09:10 | P.DS ---
Admission Date: 08/01/22 Discharge Date: 08/14/22 Primary Care Provider: Kandice Disposition: TRANSFER TO SKILLED NURSING Discharge Condition: FAIR Reason for Admission: CHF Exacerbation, AMS, Afib RVR - Problems (1) Acute on chronic diastolic heart failure Current Visit: Yes Status: Acute (2) Atrial fibrillation Current Visit: Yes Status: Chronic Qualifiers: Atrial fibrillation type: paroxysmal Qualified Code(s): I48.0 - Paroxysmal atrial fibrillation (3) Hypothyroidism Current Visit: Yes Status: Chronic Qualifiers: Hypothyroidism type: unspecified Qualified Code(s): E03.9 - Hypothyroidism, unspecified (4) Advanced dementia Current Visit: Yes Status: Acute (5) Hypertension Current Visit: Yes Status: Chronic Qualifiers: Hypertension type: primary hypertension Qualified Code(s): I10 - Essential (primary) hypertension Brief History of Present Illness: Patient is an 87 year old female with past medical history of dementia, afib, hypertension, hyperlipidemia, hypothyroidism, and recent diagnosis of CHF who presented to the ED via EMS from long-term with fever, altered mental status, and failure to thrive. She was found to febrile and in afib RVR. Patient was confused during examination in the ED. Labs on presentation significant for chloride 96, CO2 34, BUN 47, creatinine 1.5, T. bili 1.3, AST 104, ALT 103, BNP 21,000. Urine negative for UTI. Covid/flu negative. CT showed " Small to moderate right pleural effusion and Cholelithiasis." Abdominal US showed " Cholelithiasis without secondary signs to suggest acute cholecystitis." In the emergency department, she received 5 mg IV metoprolol and 0.5 mg digoxin which did improve her rate. She additionally received cefepime, levaquin, tylenol and lasix. Patient was admitted for further management. Hospital Course: Diagnosis fever/failure to thrive Acute on chronic diastolic heart failure Atrial fibrillation, chronic Advanced Dementia Constipation Cholelithiasis Hypertension Hypothyroidism severe protein calorie malnutrition Patient admitted to the medical floor and the following medical problems addressed: Rapid Afib/acute on chronic diastolic heart failure Cardiology saw patient. echo reported A-Fib, left atrial enlargement, and moderate tricuspid regurgitation She was treated briefly with IV Lasix. She was also placed on amiodarone Heart rate is currently controlled on amiodarone. Patient considered not a candidate for anticoagulation given age/ fall risks /dementia Altered mental status/fever Etiology of fever and altered mental status was unclear Blood cultures - negative, UA - negative initial CT noted cholelithiasis, U/S, similar; no sonographic evidence of cholecystitis general surgery consulted who recommended med management for now - no evidence of peritonitis, no cholecystitis MRCP attempted but patient was unable to follow commands. Repeat U/S - cholelithiasis, no obvious sonographic evidence, borderline wall thickening Total bilirubin and LFTs improved to normal. She was treated empirically with IV Zosyn for several days. Antibiotics later discontinued Patient oral intake has improved. Her oral intake was initially poor multiple attempts at inserting NG tube were unsuccessful She was fed with assistance. family does not want PEG tube. May be a candidate for hospice. Overall patient mental status has improved, she is tolerating her diet, occasionally agitated. She has clinically improved to baseline and deemed stable for discharge. Vital Signs/Physical Exam: Temp Pulse Resp BP Pulse Ox 97.7 F 81 16 139/69 96 08/14/22 04:00 08/14/22 06:27 08/14/22 04:00 08/14/22 06:27 08/14/22 04:00 General: Other (Frail-appearing, awake and interactive.) HEENT: Mucous membr. moist/pink Neck: Supple, JVD not distended Respiratory: Clear to auscultation bilaterally, Normal air movement Cardiovascular: No edema, Normal S1 S2, Irregular heart rate/rhythm Gastrointestinal: Normal bowel sounds, Soft and benign, Non-distended, No tenderness Musculoskeletal: No swelling Integumentary: No cyanosis Neurological: Other (No focal motor deficit) Laboratory Data at Discharge: WBC 7.40 thou/uL (4.3-10.9) 08/12/22 03:00 Hgb 12.4 g/dL (12.0-15.0) 08/12/22 03:00 Hct 38.5 % (36.0-45.0) 08/12/22 03:00 Plt Count 200 thou/uL (152-406) 08/12/22 03:00 PT 19.1 SECONDS (9.5-12.5) H 07/31/22 20:00 INR 1.74 07/31/22 20:00 Sodium 137 mEq/L (136-145) 08/13/22 03:02 Potassium 3.9 mEq/L (3.5-5.1) 08/13/22 03:02 BUN 18 mg/dL (7-18) 08/13/22 03:02 Creatinine 0.72 mg/dL (0.55-1.02) 08/13/22 03:02 Glucose 106 mg/dL (74-106) 08/13/22 03:02 Uric Acid 10.8 mg/dL (2.6-6.0) H 08/01/22 16:55 Phosphorus 2.5 mg/dL (2.5-4.9) 08/13/22 03:02 Magnesium 2.0 mg/dL (1.6-2.4) 08/13/22 03:02 Total Bilirubin 1.0 mg/dL (0.2-1.0) 08/12/22 03:00 AST 22 U/L (15-37) 08/12/22 03:00 ALT 24 U/L (13-56) 08/12/22 03:00 Alkaline Phosphatase 39 U/L (45-117) L 08/12/22 03:00 Triglycerides 93 mg/dL (<150) 08/01/22 05:32 Cholesterol 136 mg/dL (<200) 08/01/22 05:32 HDL Cholesterol 37 mg/dL (40-60) L 08/01/22 05:32 Cholesterol/HDL Ratio 3.68 08/01/22 05:32 Lipase 135 U/L (13-75) H 08/10/22 06:00 Home Medications: Acetaminophen [Tylenol*] 2 tab PO Q6HP PRN 08/04/22 Duloxetine HCl [Cymbalta] 1 tab PO BEDTIME 08/04/22 Magnesium Oxide 1 tab PO BID 08/04/22 Melatonin 1 tab PO BEDTIME PRN 08/04/22 Ondansetron [Zofran (Odt)*] 1 tab PO Q4HP PRN 08/04/22 Trazodone HCl 0.5 tab PO BEDTIME PRN 08/04/22 Amiodarone HCl [Cordarone*] 200 mg PO BID tab 08/14/22 Amlodipine [Norvasc*] 10 mg PO DAILY tab 08/14/22 Docusate [Colace Cap*] 100 mg PO BID cap 08/14/22 Ensure Enlive 237 ml PO TID can 08/14/22 Ipratropium Neb [Atrovent*] 0.5 mg NEB [id number] PRN amp 08/14/22 Metoprolol Tartrate [Lopressor*] 25 mg PO BID 6AM 6PM #0 tab 08/14/22 Pantoprazole [Protonix Tab] 40 mg PO DAILY #30 tab 08/14/22 New Medications: Pantoprazole [Protonix Tab] 40 mg PO DAILY #30 tab Diet: Regular Activity: Fall precautions Followup: Jessenia Woodson MD [Primary Care Provider] - 2-3 Days Time spent managing pt's care (in minutes): 35
[2022-08-14] MEDS: ENSURE ENLIVE 237 ML CAN PO SCH ×2 (09:58→14:00)
[2022-08-14] MEDS: PANTOPRAZOLE 40 MG INJ IVP SCH (09:58)
[2022-08-14] MEDS: ENOXAPARIN 40 MG/0.4 ML SQ SCH (09:58)
[2022-08-14] MEDS: AMLODIPINE 10 MG TAB PO SCH (09:58)
[2022-08-14] MEDS: AMIODARONE HCL 200 MG TAB PO SCH (09:58)
[2022-08-14 10:38] VITALS: O2SAT 98
[2022-08-14 13:23] VITALS: BP 139/80; TEMP 97.6
[2022-08-14] MEDS: WATER FOR INJ,STERILE 10 ML IM PRN (13:45)
[2022-08-14] MEDS: ZIPRASIDONE MESYLA 20 MG/VIAL IM PRN (13:58)
--- NOTE | 2022-08-15 15:32 | ER ---
Nurse's Notes [facility] Name: Natasha Frank Age: 87 yrs Sex: Female : 1935 Arrival Date: 07/31/2022 Time: 19:14 Bed 3 Private MD: Diagnosis: Fever, unspecified;Chronic atrial fibrillation;Unspecified combined systolic (congestive) and diastolic (congestive) heart failure;Sepsis, unspecified organism;Altered mental status, unspecified;Weakness;Essential (primary) hypertension;Hypokalemia;Calculus of gallbladder without cholecystitis Presentation: 07/31 19:14 Chief complaint: EMS states: 87 year old female coming from group home. the nurse at [address] called because patient is having failure to thrive. also, alter mental status. 19:14 Coronavirus screen: Vaccine status: Patient reports receiving the 2nd dose of the covid ha1 vaccine. Ebola Screen: No symptoms or risks identified at this time. Initial Sepsis Screen: Does the patient meet any 2 criteria? No. Patient's initial sepsis screen is negative. Does the patient have a suspected source of infection? No. Patient's initial sepsis screen is negative. Risk Assessment: Do you want to hurt yourself or someone else? Patient reports no desire to harm self or others. Onset of symptoms was July 30, 2022. 19:14 Method Of Arrival: EMS: [place] [id number] 19:14 Acuity: GERRI 2 as6 Triage Assessment: 19:14 General: Appears uncomfortable, Behavior is. Pain: Unable to use pain scale. FLACC ha1 scale score is 3 out of 10. EENT: No signs and/or symptoms were reported regarding the EENT system. Neuro: Level of Consciousness is awake, alert, Oriented to person. Cardiovascular: Capillary refill < 3 seconds Patient's skin is warm and dry. Respiratory: Airway is patent Respiratory effort is even, unlabored, Respiratory pattern is regular, symmetrical. GI: Abdomen is flat, non-distended. : No signs and/or symptoms were reported regarding the genitourinary system. Musculoskeletal: Circulation, motion, and sensation intact. Historical: - Allergies: 19:14 NKDA; ha1 19:14 Strawberries; ha1 - PMHx: 19:14 Anemia; Atrial fibrillation; Congestive heart failure; Dementia; depressive disorder; ha1 Home O2, 3 lpm NC; Hyperlipidemia; Hypertensive disorder; Hypothyroidism; - Immunization history:: Adult Immunizations up to date. - Social history:: Smoking status: unknown. - Family history:: not pertinent. Screenin:07 Abuse screen: Denies threats or abuse. Denies injuries from another. ha1 08/01 01:01 [facility] ED Fall Risk Assessment (Adult) Score/Fall Risk Level 0 - 2 = Low Risk. as6 Nutritional screening: No deficits noted. Tuberculosis screening: No symptoms or risk factors identified. Assessment: 07/31 19:15 Reassessment: see triage assessment. ha1 20:15 Reassessment: Patient and/or family updated on plan of care and expected duration. Pain ha1 level reassessed. Pain: Unable to use pain scale. FLACC scale score is 0 out of 10. Neuro: Level of Consciousness is awake, Oriented to place. 21:15 Reassessment: Patient and/or family updated on plan of care and expected duration. Pain ha1 level reassessed. 23:15 Reassessment: Patient and/or family updated on plan of care and expected duration. Pain ha1 level reassessed. 08/01 00:15 Reassessment: Patient and/or family updated on plan of care and expected duration. Pain ha1 level reassessed. Vital Signs: 07/31 19:14 BP 168 / 112; Pulse 116; Resp 20; Temp 99.9; Pulse Ox 99% ; Weight 68.04 kg; Height 5 ha1 ft. 3 in. ; 20:30 BP 176 / 110; Pulse 121; Resp 20 S; Pulse Ox 97% on 2 lpm NC; as6 21:30 BP 151 / 102; Pulse 114; Resp 18 S; Pulse Ox 96% on 2 lpm NC; as6 22:30 BP 178 / 112; Pulse 106; Resp 18 S; Pulse Ox 95% on 2 lpm NC; ha1 23:30 BP 167 / 71; Pulse 93; Resp 18 S; Pulse Ox 99% on 2 lpm NC; ha1 08/01 00:22 BP 155 / 103; Pulse 99; Resp 20 S; Pulse Ox 100% on 2 lpm NC; ha1 01:02 BP 173 / 91; Pulse 93; Resp 18 S; Pulse Ox 100% on 2 lpm NC; as6 07/31 19:14 Body Mass Index 26.57 (68.04 kg, 160.02 cm) ha1 ED Course: 07/31 19:14 Patient arrived in ED. ll1 19:14 Arm band placed on left wrist. ha1 19:20 Hawk Madrid MD is Attending Physician. matty 19:59 Dana García, WANDER is Primary Nurse. ha1 20:05 Triage completed. ha1 20:28 XRAY Chest (1 view) In Process Unspecified. EDMS 20:41 Celso Clancy is Hospitalizing Provider. matty 21:10 Betancur cath inserted, using sterile technique, 16 Fr., by la, balloon inflated, to as6 gravity drainage, returned clear yellow urine. 21:53 CT Traumagram (Head C Spine CAP wo con) In Process Unspecified. EDMS 23:24 Abdomen Limited US In Process Unspecified. EDMS 03 01:01 No provider procedures requiring assistance completed. Patient admitted, IV remains in as6 place. 01:02 Bed in low position. Call light in reach. Side rails up X2. as6 Administered Medications: 07/31 20:46 Discontinued: NS 0.9% IV 500 ml IV at bolus once matty 20:39 Drug: NS 0.9% IV 500 ml {Note: left EJ.} Route: IV; Rate: bolus; Site: Other; ha1 20:45 Drug: Famotidine IVP 20 mg Route: IVP; Site: left jugular; as6 08/01 01:04 Follow up: Response: No adverse reaction as6 07/31 20:46 Not Given (Duplicate Order): NS 0.9% IV 1000 ml IV at 125 ml/hr continuous matty 20:50 Drug: Acetaminophen MA Suppository 650 mg Route: MA; as6 08/01 01:04 Follow up: Response: No adverse reaction as6 07/31 22:30 Drug: NS 0.9% with KCl IV 20 mEq/L 1000 ml Route: IV; Rate: 50 ml/hr; Site: left as6 jugular; 08/01 01:05 Follow up: Response: No adverse reaction; IV Status: Infusion continued upon admission as6 07/31 22:30 Drug: Digoxin IVP 0.5 mg Route: IVP; Site: left jugular; as6 08/01 01:04 Follow up: Response: No adverse reaction as6 07/31 22:30 Drug: Nitroglycerin Transdermal Ointment 2 % 0.5 inches Route: Transdermal; Site: as6 anterior chest wall; 08/01 01:03 Follow up: Response: No adverse reaction 07/31 22:32 Drug: Furosemide IVP 40 mg Route: IVP; Site: left jugular; 08/01 01:04 Follow up: Response: No adverse reaction 07/31 22:35 Drug: Metoprolol IVP 2.5 mg Route: IVP; Site: left jugular; 08/01 01:03 Follow up: Response: No adverse reaction 07/31 22:37 Drug: Cefepime IVPB 1 grams Route: IVPB; Rate: 200 ml/hr; Infused Over: 30 mins; Site: as6 left jugular; 08/01 01:04 Follow up: Response: No adverse reaction; IV Status: Completed infusion; IV Intake: as6 100ml 07/31 22:40 Drug: Metoprolol IVP 2.5 mg Route: IVP; Site: left jugular; 08/01 01:03 Follow up: Response: No adverse reaction 07/31 23:59 Drug: levofloxacin IVPB 500 mg Volume: 100 ml; Route: IVPB; Infused Over: 60 mins; as6 Site: left jugular; 08/01 01:04 Follow up: Response: No adverse reaction; IV Status: Completed infusion; IV Intake: as6 100ml Medication: 01:01 VIS not applicable for this client. as6 Intake: 01:04 IV: 100ml; Total: 100ml. as6 01:04 IV: 100ml; Total: 200ml. as6 Outcome: 07/31 20:45 Decision to Hospitalize by Provider. matty 08/01 01:01 Admitted to Med/surg as6 Condition: stable Instructed on the need for admit. 01:05 Patient left the ED. as6 Signatures: Dispatcher [employer] EDMS Hawk Madrid MD MD cha Lewis, Lynsay, RN RN ll1 Geovanny Amaya RN RN as6 Dana García RN RN ha1 Corrections: (The following items were deleted from the chart) 07/31 21:11 19:14 Acuity: GERRI 3 ha1 as6 08/01 00:22 07/31 23:30 Reassessment: Patient and/or family updated on plan of care and expected ha1 duration. Pain level reassessed. ha1
--- NOTE | 2022-08-15 15:32 | EDPHYS ---
Physician Documentation [facility] Name: Natasha Frank Age: 87 yrs Sex: Female : 1935 Arrival Date: 07/31/2022 Time: 19:14 Bed 3 Private MD: ED Physician Hawk Madrid HPI: 07/31 20:07 This 87 yrs old Female presents to ER via EMS with complaints of ams and fever.matty 20:07 The patient has shortness of breath at rest, with light activity. Onset: The matty symptoms/episode began/occurred 2 day(s) ago. Duration: The symptoms are intermittent. The patient's shortness of breath is aggravated by nothing, is alleviated by nothing. weak and altered, fever. The patient presents with confusion, decreased mental status. Possible causes: sepsis. Associated signs and symptoms: The patient has no apparent associated signs or symptoms. Historical: - Allergies: 19:14 NKDA; ha1 19:14 Strawberries; ha1 - PMHx: 19:14 Anemia; Atrial fibrillation; Congestive heart failure; Dementia; depressive disorder; ha1 Home O2, 3 lpm NC; Hyperlipidemia; Hypertensive disorder; Hypothyroidism; - Immunization history:: Adult Immunizations up to date. - Social history:: Smoking status: unknown. - Family history:: not pertinent. ROS: 20:07 Eyes: Negative for injury, pain, redness, and discharge, ENT: Negative for injury, matty pain, and discharge, Neck: Negative for injury, pain, and swelling, Respiratory: Negative for shortness of breath, cough, wheezing, and pleuritic chest pain, Abdomen/GI: Negative for abdominal pain, nausea, vomiting, diarrhea, and constipation, Back: Negative for injury and pain, : Negative for injury, bleeding, discharge, and swelling, MS/Extremity: Negative for injury and deformity, Skin: Negative for injury, rash, and discoloration, Psych: Negative for depression, anxiety, suicide ideation, homicidal ideation, and hallucinations, Allergy/Immunology: Negative for hives, rash, and allergies, Endocrine: Negative for neck swelling, polydipsia, polyuria, polyphagia, and marked weight changes, Hematologic/Lymphatic: Negative for swollen nodes, abnormal bleeding, and unusual bruising. 20:07 Constitutional: Positive for chills, fatigue, fever. 20:07 Cardiovascular: Positive for edema. 20:07 Respiratory: Positive for cough, shortness of breath, at rest. 20:07 Neuro: Positive for altered mental status, dizziness, weakness. Exam: 20:07 Constitutional: This is a well developed, well nourished patient who is awake, alert, matty and in no acute distress. Head/Face: Normocephalic, atraumatic. Eyes: Pupils equal round and reactive to light, extra-ocular motions intact. Lids and lashes normal. Conjunctiva and sclera are non-icteric and not injected. Cornea within normal limits. Periorbital areas with no swelling, redness, or edema. ENT: Nares patent. No nasal discharge, no septal abnormalities noted. Tympanic membranes are normal and external auditory canals are clear. Oropharynx with no redness, swelling, or masses, exudates, or evidence of obstruction, uvula midline. Mucous membranes moist. Neck: Trachea midline, no thyromegaly or masses palpated, and no cervical lymphadenopathy. Supple, full range of motion without nuchal rigidity, or vertebral point tenderness. No Meningismus. Chest/axilla: Normal chest wall appearance and motion. Nontender with no deformity. No lesions are appreciated. Respiratory: Lungs have equal breath sounds bilaterally, clear to auscultation and percussion. No rales, rhonchi or wheezes noted. No increased work of breathing, no retractions or nasal flaring. Abdomen/GI: Soft, non-tender, with normal bowel sounds. No distension or tympany. No guarding or rebound. No evidence of tenderness throughout. Back: No spinal tenderness. No costovertebral tenderness. Full range of motion. Female : Normal external genitalia. Skin: Warm, dry with normal turgor. Normal color with no rashes, no lesions, and no evidence of cellulitis. MS/ Extremity: Pulses equal, no cyanosis. Neurovascular intact. Full, normal range of motion. Psych: Awake, alert, with orientation to person, place and time. Behavior, mood, and affect are within normal limits. 20:07 Cardiovascular: Rate: tachycardic, Rhythm: irregularly irregular, Pulses: Pulses are 4+ in bilateral radial, brachial, femoral, popliteal, posterior tibial and and dorsalis pedis arteries.. Edema: 2+ edema to level of left midcalf and right midcalf, JVD: is noted bilaterally, to 3 cm. 20:07 Neuro: Orientation: Not oriented to person, place, time, situation, Mentation: slow to respond, Memory: unable to test, Cranial nerves: grossly normal, is grossly normal based on the patient's age, no acute changes, Cerebellar function: is grossly normal based on the patient's age, no acute changes, Motor: is grossly normal based on the patient's age, no acute changes, Sensation: no obvious gross deficits, appropriate Gait: not tested. seizure activity, is not displayed by the patient. 20:52 ECG was reviewed by the Attending Physician. [facility] Vital Signs: 19:14 BP 168 / 112; Pulse 116; Resp 20; Temp 99.9; Pulse Ox 99% ; Weight 68.04 kg; Height 5 ha1 ft. 3 in. ; 20:30 BP 176 / 110; Pulse 121; Resp 20 S; Pulse Ox 97% on 2 lpm NC; as6 21:30 BP 151 / 102; Pulse 114; Resp 18 S; Pulse Ox 96% on 2 lpm NC; as6 22:30 BP 178 / 112; Pulse 106; Resp 18 S; Pulse Ox 95% on 2 lpm NC; ha1 23:30 BP 167 / 71; Pulse 93; Resp 18 S; Pulse Ox 99% on 2 lpm NC; ha1 08/01 00:22 BP 155 / 103; Pulse 99; Resp 20 S; Pulse Ox 100% on 2 lpm NC; ha1 01:02 BP 173 / 91; Pulse 93; Resp 18 S; Pulse Ox 100% on 2 lpm NC; as6 07/31 19:14 Body Mass Index 26.57 (68.04 kg, 160.02 cm) ha Procedures: 07/31 20:53 Peripheral line: by aseptic technique a peripheral line was placed in the left external matty jugular vein. MDM: 19:20 Patient medically screened. [facility] 20:12 Differential diagnosis: Anemia CHF exacerbation, Chronic Obstructive Pulmonary Disease [facility] viral Infection, bacterial infection, URI, bronchitis, pneumonia UTI, meningitis, Myocardial Infarction pulmonary edema, Pulmonary Embolism reactive airway disease, Sepsis Unstable Angina. Antibiotic administration: Maxipime and Levaquin given. Differential Diagnosis altered mental status, sepsis, flu. Differential Diagnosis: CVA, electrolyte abnormality, pneumonia, seizure, sepsis, TIA, UTI, volume depletion. Immunization status: Pneumococcal vaccine: within last 5 years. Influenza vaccine: Data reviewed: vital signs, nurses notes, lab test result(s), EKG, radiologic studies, CT scan, plain films. Consideration of Admission/Observation Patient was admitted/placed on observation. Escalation of care including admission/observation considered. Management of patient was discussed with the following: Hospitalist: cristofer boggs. I considered the following discharge prescriptions or medication management in the emergency department Medications were administered in the Emergency Department. See MAR. Test considered but Not performed: MRI: no mri brain. 07/31 20:04 Order name: Basic Metabolic Panel; Complete Time: 21:42 [facility] 07/31 20:04 Order name: CBC with Diff; Complete Time: 20:47 [facility] 07/31 20:04 Order name: LFT's; Complete Time: 21:42 [facility] 07/31 20:04 Order name: Magnesium; Complete Time: 21:42 [facility] 07/31 20:04 Order name: NT PRO-BNP; Complete Time: 21:42 [facility] 07/31 20:04 Order name: PT-INR; Complete Time: 20:47 [facility] 07/31 20:04 Order name: Troponin HS; Complete Time: 21:42 [facility] 07/31 20:04 Order name: Blood Culture Adult (2) [facility] 07/31 20:04 Order name: Lactate w/ 2H reflex if indic.; Complete Time: 21:14 [facility] 07/31 20:04 Order name: Urine Culture [facility] 07/31 20:04 Order name: COVID-19/FLU A+B; Complete Time: 23:02 [facility] 07/31 20:04 Order name: TSH; Complete Time: 21:42 [facility] 07/31 22:47 Order name: Urine Dipstick-Ancillary; Complete Time: 22:52 EDMS 07/31 20:04 Order name: XRAY Chest (1 view); Complete Time: 20:47 [facility] 07/31 20:04 Order name: CT Traumagram (Head C Spine CAP wo con); Complete Time: 22:15 [facility] 07/31 22:18 Order name: Abdomen Limited US sb4 07/31 20:04 Order name: EKG; Complete Time: 20:05 [facility] 07/31 20:04 Order name: Cardiac monitoring; Complete Time: 20:19 [facility] 07/31 20:04 Order name: EKG - Nurse/Tech; Complete Time: 22:40 [facility] 07/31 20:04 Order name: IV Saline Lock; Complete Time: 20:19 matty 07/31 20:04 Order name: Labs collected and sent; Complete Time: 20:19 matty 07/31 20:04 Order name: O2 Per Protocol; Complete Time: 20:20 matty 07/31 20:04 Order name: O2 Sat Monitoring; Complete Time: 20:20 matty 07/31 20:04 Order name: Urine Dipstick-Ancillary (obtain specimen); Complete Time: 22:47 matty 07/31 20:04 Order name: Betancur; Complete Time: 21:07 matty EC:52 Rate is 116 beats/min. Rhythm is irregularly irregular. QRS Ashley is Normal. MA interval matty is normal. QRS interval is normal. QT interval is normal. No Q waves. T waves are Normal. No ST changes noted. Clinical impression: Atrial Fibrillation. Interpreted by me. Reviewed by me. Administered Medications: 20:46 Discontinued: NS 0.9% IV 500 ml IV at bolus once matty 20:39 Drug: NS 0.9% IV 500 ml {Note: left EJ.} Route: IV; Rate: bolus; Site: Other; ha 20:45 Drug: Famotidine IVP 20 mg Route: IVP; Site: left jugular; 08/01 01:04 Follow up: Response: No adverse reaction 07/31 20:46 Not Given (Duplicate Order): NS 0.9% IV 1000 ml IV at 125 ml/hr continuous matty 20:50 Drug: Acetaminophen MA Suppository 650 mg Route: MA; 08/01 01:04 Follow up: Response: No adverse reaction 07/31 22:30 Drug: NS 0.9% with KCl IV 20 mEq/L 1000 ml Route: IV; Rate: 50 ml/hr; Site: left as6 jugular; 08/01 01:05 Follow up: Response: No adverse reaction; IV Status: Infusion continued upon admission 07/31 22:30 Drug: Digoxin IVP 0.5 mg Route: IVP; Site: left jugular; 08/01 01:04 Follow up: Response: No adverse reaction 07/31 22:30 Drug: Nitroglycerin Transdermal Ointment 2 % 0.5 inches Route: Transdermal; Site: as6 anterior chest wall; 08/01 01:03 Follow up: Response: No adverse reaction 07/31 22:32 Drug: Furosemide IVP 40 mg Route: IVP; Site: left jugular; 08/01 01:04 Follow up: Response: No adverse reaction 07/31 22:35 Drug: Metoprolol IVP 2.5 mg Route: IVP; Site: left jugular; as08/01 01:03 Follow up: Response: No adverse reaction 07/31 22:37 Drug: Cefepime IVPB 1 grams Route: IVPB; Rate: 200 ml/hr; Infused Over: 30 mins; Site: as left jugular; 08/01 01:04 Follow up: Response: No adverse reaction; IV Status: Completed infusion; IV Intake: as6 100ml 07/31 22:40 Drug: Metoprolol IVP 2.5 mg Route: IVP; Site: left jugular; 08/01 01:03 Follow up: Response: No adverse reaction 07/31 23:59 Drug: levofloxacin IVPB 500 mg Volume: 100 ml; Route: IVPB; Infused Over: 60 mins; as6 Site: left jugular; 08/01 01:04 Follow up: Response: No adverse reaction; IV Status: Completed infusion; IV Intake: as6 100ml Disposition Summary: 07/31/22 20:45 Hospitalization Ordered Hospitalization Status: Inpatient Admission matty Provider: Celso Clancy cha [facility] matty Condition: Fair matty Problem: new matty Symptoms: have improved matty Bed/Room Type: Standard matty Room Assignment: 224(08/01/22 00:15) bb Diagnosis - Fever, unspecified matty - Chronic atrial fibrillation matty - Unspecified combined systolic (congestive) and diastolic (congestive) heart failure matty - Sepsis, unspecified organism matty - Altered mental status, unspecified matty - Weakness matty - Essential (primary) hypertension matty - Hypokalemia matty - Calculus of gallbladder without cholecystitis matty Forms: - Medication Reconciliation Form matty - SBAR form matty Signatures: Dispatcher [employer] Hawk Cid MD MD cha Ballard, Brenda, RN RN bb Slawson, Ashby, RN RN as6 Dana García RN RN ha1 Cristofer Boggs PAZaheer PAStephieC sb4 Corrections: (The following items were deleted from the chart) 00:15 07/31 20:45 matty bb
== END 2022-08-14 15:08 | DRG 291 ==
LOC: ER 18:05 → ERHOLD 08-01 00:05 → 2ND 08-01 00:20
PROVIDERS: ADMIT Internal Medicine; ATTEND Internal Medicine
DX: I11.0 Hypertensive heart disease with heart failure (principal); E43 Unspecified severe protein-calorie malnutrition; G93.41 Metabolic encephalopathy; I50.33 Acute on chronic diastolic (congestive) heart failure; N17.9 Acute kidney failure, unspecified; K22.10 Ulcer of esophagus without bleeding; I48.20 Chronic atrial fibrillation, unspecified; E03.9 Hypothyroidism, unspecified; I07.1 Rheumatic tricuspid insufficiency; E78.5 Hyperlipidemia, unspecified; E86.0 Dehydration; E87.6 Hypokalemia; K59.00 Constipation, unspecified; K80.20 Calculus of gallbladder without cholecystitis without obstruction; F03.90 Unspecified dementia, unspecified severity, without behavioral disturbance, psychotic disturbance, mood disturbance, and anxiety; R62.7 Adult failure to thrive; R79.89 Other specified abnormal findings of blood chemistry; Z66 Do not resuscitate; Z68.22 Body mass index [BMI] 22.0-22.9, adult; Z91.018 Allergy to other foods; Z20.822 Contact with and (suspected) exposure to COVID-19
CPT/HCPCS: 0240U; 36415; 51702; 70450; 71045; 71250; 72125; 74018; 76700; 76705; 80048; 80053; 80061; 80076; 81003; 81015; 82140; 82248; 82550; 82947; 83605; 83690; 83735; 83880; 84100; 84132; 84145; 84443; 84484; 84550; 85025; 85610; 85730; 87040; 87086; 87088; 87811; 93005; 93306; 94760; 96365; 96374; 96375; 97110; 97116; 97161; 97530; 99285; C9113; J0692; J1160; J1630; J1650; J1940; J2543; J3475; J3480; J3486; J7030; J7040; J7050; J7613; U0003